=== PATIENT | female | born 1950 | race Caucasian/White ===

== ENCOUNTER 2016-07-21 10:48 | Emergency (ER) | payer MEDICARE ==
--- NOTE | 2016-07-21 11:29 | ERPHSYRPT ---
- History of Present Illness Time Seen by Provider: 07/21/16 11:29 Source: patient, family Exam Limitations: no limitations Patient Subjective Stated Complaint: was in the hospital last week for pneumonia. is still having a cough and chest congestion. also c/o weakness. also states she feel dizzy when up and is seeing spots in front of her eyes. Triage Nursing Assessment: ambulated to room per self without difficulty. skin w/d, color normal, resp nonlabored. dry cough noted. nonproductive. breath sounds clear. Physician History: The patient is a 66-year-old female with her with multiple complaints. She was hospitalized for 3 days for shortness of breath and a cough. She was discharged on July 14. She has been taking Augmentin since then. She still has a cough. She is short of breath. She feels "horrible". She feels dizzy for the past 2 days even when laying down. She has a headache. She has a fiery feeling in her chest intermittently but none right now. She said nausea vomiting diarrhea for 3 or 4 days. The vomiting has ceased but the diarrhea continues. She contracted this from a household member. She thinks she is dehydrated, although she is urinating 3 or 4 times a day and the urine is clear like water. She has a past medical history of congestive heart failure. Timing/Duration: day(s) (3) Cough Quality/Degree: dry cough Possible Cause: occasional episodes Associated Symptoms: cough, headache, shortness of breath Allergies/Adverse Reactions: No Known Drug Allergies Allergy (Verified 07/21/16 11:03) Home Medications: Rosuvastatin Calcium [Crestor] 10 mg PO HS 10/09/12 [History] Alprazolam 0.25 mg [xanAX 0.25 MG] 0.25 mg PO HS 02/14/13 [History] Lisinopril 10 mg [Zestril 10 MG] 20 mg PO DAILY 07/27/14 [History] Glyburide 2.5 mg PO DAILY 10/20/15 [History] Acetaminophen 325 mg [Tylenol 325 mg] 650 mg PO Q4HPRN PRN 07/11/16 [ History] Ibuprofen 200 mg [Motrin 200 mg] 600 mg PO Q6HPRN PRN 07/11/16 [History] Methylprednisolone [Medrol 4 mg Dose Pack] 4 mg PO DAILY 07/21/16 [History] Hx Tetanus, Diphtheria Vaccination/Date Given: No Hx Influenza Vaccination/Date Given: No Hx Pneumococcal Vaccination/Date Given: No Immunizations Up to Date: No - Review of Systems Constitutional: No Fever, No Chills Eyes: Vision Changes, Other (spots) Ears, Nose, & Throat: No Symptoms Respiratory: Cough, Dyspnea on Exertion (BIRCH) Cardiac: Chest Pain Abdominal/Gastrointestinal: Nausea, Vomiting, Diarrhea Genitourinary Symptoms: No Dysuria Musculoskeletal: No Back Pain, No Neck Pain Skin: No Rash Neurological: Dizziness, Headache Psychological: No Symptoms Endocrine: No Symptoms Hematologic/Lymphatic: No Symptoms Immunological/Allergic: No Symptoms All Other Systems: Reviewed and Negative - Past Medical History Pertinent Past Medical History: Yes Neurological History: No Pertinent History ENT History: No Pertinent History Cardiac History: High Cholesterol, Hypertension Respiratory History: Bronchitis, Pneumonia Endocrine Medical History: Diabetes Type II, Other Musculoskeletal History: No Pertinent History GI Medical History: Other History: No Pertinent History Psycho-Social History: Other Female Reproductive Disorders: Uterine Cancer Other Medical History: Lymphoma of liver and bone marrow, "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" - Past Surgical History Past Surgical History: Yes Neuro Surgical History: No Pertinent History Cardiac: No Pertinent History Respiratory: No Pertinent History Gastrointestinal: Appendectomy, Cholecystectomy Genitourinary: No Pertinent History Musculoskeletal: No Pertinent History Female Surgical History: Section, Hysterectomy - Social History Smoking Status: Never smoker Exposure to second hand smoke: Yes Drug Use: none Patient Lives Alone: No - Female History Hx Now: No - Nursing Vital Signs Nursing Vital Signs: Initial Vital Signs Temperature 97.7 F Temperature Source Oral Pulse Rate 103 Respiratory Rate 18 Blood Pressure 132/82 Pain Intensity 6 - Physical Exam General Appearance: no apparent distress, alert Eye Exam: PERRL/EOMI, eyes nml inspection Ears, Nose, Throat Exam: normal ENT inspection, TMs normal, pharynx normal, moist mucous membranes Neck Exam: normal inspection, non-tender, supple, full range of motion Respiratory Exam: normal breath sounds, lungs clear, No respiratory distress Cardiovascular Exam: regular rate/rhythm, normal heart sounds Gastrointestinal/Abdomen Exam: soft, other (obese), No tenderness Pelvic Exam: not done Rectal Exam: not done Back Exam: normal inspection, No CVA tenderness, No vertebral tenderness Extremity Exam: normal inspection, normal range of motion, No pedal edema Neurologic Exam: alert, oriented x 3, cooperative, normal mood/affect, sensation nml, No motor deficits Skin Exam: normal color, warm, dry, No rash Lymphatic Exam: No adenopathy SpO2 Interpretation: normal SpO2: 96 Oxygen Delivery: Room Air - Course EKG Interpreted by Me: Sinus Rhythm, Left [place] Deviation, NORMAL QRS, Other ( LAFB) Ordered Tests: Active Orders 24 hr Category Date Time Status EKG-ER Only STAT Care 07/21/16 11:35 Active IV Insertion STAT Care 07/21/16 11:35 Active CHEST 2 VIEWS (PA AND LAT) Stat Exams 07/21/16 11:36 Completed HEAD WITHOUT CONTRAST [CT] Stat Exams 07/21/16 11:37 Completed CBC W DIFF Stat Lab 07/21/16 12:05 Completed CMP Stat Lab 07/21/16 12:06 Completed Manual Differential NC Stat Lab 07/21/16 12:05 Completed NT PRO BNP Stat Lab 07/21/16 12:06 Completed TROPONIN Stat Lab 07/21/16 12:06 Completed UA W/ MICROSCOPIC Stat Lab 07/21/16 12:06 Completed Lab/Rad Data: Laboratory Result Diagrams 07/21/16 12:05 07/21/16 12:06 Laboratory Results 07/21/16 07/21/16 07/21/16 Range/Units 12:06 12:06 12:05 WBC 9.6 (4.0-10.5) K/mm3 RBC 5.44 H (4.1-5.4) M/mm3 Hgb 15.7 (12.0-16.0) gm/dl Hct 46.4 (35-47) % MCV 85.3 (78-100) fl MCH 28.8 (26-32) pg MCHC 33.8 (32-36) g/dl RDW 14.7 H (11.5-14.0) % Plt Count 194 (150-450) K/mm3 MPV 10.5 H (6-9.5) fl Segmented Neutrophils 68 H (36.0-66.0) % Band Neutrophils 2 (0.0-2.0) % Lymphocytes (Manual) 20 L (24-44) % Monocytes (Manual) 7 (0.0-12.0) % Eosinophils (Manual) 3 (0.00-3.0) % Differential Comment ABNORMAL Platelet Estimate NORMAL (NORMAL) Anisocytosis 1+ Sodium 137 (136-145) mEq/L Potassium 4.1 (3.5-5.1) mEq/L Chloride 102 (98-107) mEq/L Carbon Dioxide 25.1 (21-32) mEq/L Anion Gap 14.1 (5-15) MEQ/L BUN 26 H (9-20) mg/dL Creatinine 1.04 (0.55-1.30) mg/dl Estimated GFR 56 ML/MIN Glucose 171 H (70-110) MG/DL Calcium 9.2 (8.5-10.1) mg/dL Total Bilirubin 0.9 (0.2-1.0) mg/dL AST 11 L (15-37) U/L ALT 20 (12-78) U/L Alkaline Phosphatase 58 (46-116) U/L Troponin I < 0.017 (0.000-0.056) ng/ml NT-Pro-B Natriuret Pep 88 (0-125) pg/ml Serum Total Protein 7.1 (6.4-8.2) gm/dL Albumin 3.4 (3.4-5.0) g/dL Ur Collection Type CCMS Urine Color YELLOW (YELLOW) Urine Appearance CLEAR (CLEAR) Urine pH 5.0 (5-6) Ur Specific [place] 1.010 (1.005-1.025) Urine Protein NEGATIVE (Negative) Urine Glucose (UA) NEGATIVE (NEGATIVE) mg/dL Urine Ketones NEGATIVE (NEGATIVE) Urine Nitrite NEGATIVE (NEGATIVE) Urine Bilirubin NEGATIVE (NEGATIVE) Urine Urobilinogen 0.2 (0-1) mg/dL Urine WBC (Auto) TRACE (NEGATIVE) Urine RBC (Auto) NEGATIVE (0-5) Real/ul Urine Microscopic WBC 0-2 (0-5) /HPF Ur Epithelial Cells RARE (FEW) /HPF Urine Bacteria RARE (NEGATIVE) /HPF Specimen Received 07-21-16 1215 - Progress Progress: unchanged Air Movement: good Blood Culture(s) Obtained: No Antibiotics given: No Discussed with : Ada Nix Will see patient in: office Counseled pt/family regarding: lab results, diagnosis, need for follow-up, rad results - Departure Time of Disposition: 14:23 Departure Disposition: Home Clinical Impression: Bronchitis Condition: Stable Critical Care Time: No Additional Instructions: Continue with all meds as directed. Follow up with Dr Nix on Sunday at 11: 30.
[2016-07-21 12:09] LABS: Mean Cell Volume 85.3 fl (78-100); Mean Platelet Volume 10.5 fl (6-9.5); Platelet Count 194 K/mm3 (150-450); Red Blood Count 5.44 M/mm3 (4.1-5.4); Red Cell Distribution Width 14.7 % (11.5-14.0); White Blood Count 9.6 K/mm3 (4.0-10.5)
[2016-07-21 12:10] LABS: Mean Corpuscular Hemoglobin 28.8 pg (26-32)
[2016-07-21 12:24] LABS: COMPLETE URINE MICROSCOPIC? YES; Collection Type CCMS
[2016-07-21 12:25] LABS: Bacteria RARE /HPF (NEGATIVE); Epithelial Cells RARE /HPF (FEW); WBC 0-2 /HPF (0-5)
--- NOTE | 2016-07-21 12:26 | XRAY ---
Indication: Cough and short of breath. Comparison: July 13, 2016 PA/lateral chest remains hyperinflated and clear. Heart is not enlarged. No new/acute findings.
--- NOTE | 2016-07-21 12:36 | XRAY ---
Indication: Dizziness and visual disturbance. Multiple contiguous axial images obtained through the head without contrast. Comparison: April 20, 2015 Again no acute intracranial hemorrhage, abnormal extra-axial fluid collection, or mass effect. Fourth ventricle is midline without hydrocephalus. Zaidi-white matter differentiation preserved. Bony calvarium intact. Visualized paranasal sinuses and mastoid air cells are pneumatized and clear. Impression: Stable negative CT head without contrast exam. CT DI is 66.81
[2016-07-21 12:38] LABS: ALBUMIN 3.4 g/dL (3.4-5.0); ALKALINE PHOSPHATASE 58 U/L (46-116); ANION GAP 14.1 MEQ/L (5-15); BILIRUBIN,TOTAL 0.9 mg/dL (0.2-1.0); BLOOD UREA NITROGEN 26 mg/dL (9-20); CHLORIDE 102 mEq/L (98-107); Carbon Dioxide 25.1 mEq/L (21-32); Glucose 171 MG/DL (70-110); Potassium 4.1 mEq/L (3.5-5.1); SGOT/AST 11 U/L (15-37); SGPT/ALT 20 U/L (12-78); SODIUM 137 mEq/L (136-145); Total Protein 7.1 gm/dL (6.4-8.2)
[2016-07-21 12:45] LABS: TROPONIN < 0.017 ng/ml (0.000-0.056)
[2016-07-21 13:19] LABS: ANISOCYTOSIS 1+; BAND 2 % (0.0-2.0); Eosinophil 3 % (0.00-3.0); Platelet Estimate NORMAL (NORMAL); Total Cells Counted 100
[2016-07-21] MEDS ORDERED: TORAdol 30 mg Injection IV ONE (14:24)
[2016-07-21] MEDS ORDERED: TORAdol 30 mg Injection ONE (14:32)
[2016-07-21 14:39] VITALS: BP 137/87; PULSE 72; O2SAT 95
== END 2016-07-21 14:53 | disposition home or self-care (01) ==
LOC: ED 10:48
DX: J40 Bronchitis, not specified as acute or chronic (principal); R05 Cough; R51 Headache; R06.02 Shortness of breath; I10 Essential (primary) hypertension; E78.00 Pure hypercholesterolemia, unspecified
CPT/HCPCS: 36000; 36415; 70450; 71020; 80053; 81000; 83880; 84484; 85025; 93005; 99283; J1885

== ENCOUNTER 2016-12-17 16:45 | Emergency (ER) | payer MEDICARE ==
[2016-12-17] MEDS ORDERED: Sodium Chloride 0.9% 1000 ML 1,000 ML IV SCH (17:15)
[2016-12-17] MEDS ORDERED: Sodium Chloride 0.9% 1000 ML 1,000 ML ONE (17:34)
[2016-12-17 17:36] LABS: BASOPHIL % 0.2 % (0.0-0.4); Eosinophil % 1.3 % (0.00-5.0); Granulocytes % 69.2 % (36.0-66.0); Lymphocytes % 21.3 % (24.0-44.0); Mean Cell Volume 85.5 fl (78-100); Mean Corpuscular Hemoglobin 28.2 pg (26-32); Mean Platelet Volume 10.5 fl (6-9.5); Platelet Count 177 K/mm3 (150-450); Red Blood Count 4.29 M/mm3 (4.1-5.4); Red Cell Distribution Width 14.3 % (11.5-14.0); White Blood Count 5.2 K/mm3 (4.0-10.5)
[2016-12-17 18:01] LABS: ADD URINE CULTURE? NO (NO); Bacteria FEW /HPF (NEGATIVE); COMPLETE URINE MICROSCOPIC? YES; Collection Type CLEAN CATCH; Epithelial Cells MODERATE /HPF (FEW); Mucus SLIGHT /HPF (NEGATIVE)
[2016-12-17 18:14] VITALS: BP 124/63; PULSE 66; O2SAT 99
[2016-12-17 18:24] LABS: ALBUMIN 3.2 g/dL (3.4-5.0); ALKALINE PHOSPHATASE 64 U/L (46-116); ANION GAP 13.1 MEQ/L (5-15); BLOOD UREA NITROGEN 20 mg/dL (9-20); CHLORIDE 106 mEq/L (98-107); Carbon Dioxide 25.9 mEq/L (21-32); Glucose 157 MG/DL (70-110); Potassium 3.8 mEq/L (3.5-5.1); SGOT/AST 11 U/L (15-37); SGPT/ALT 15 U/L (12-78); SODIUM 141 mEq/L (136-145); Total Protein 6.8 gm/dL (6.4-8.2)
[2016-12-17] MEDS ORDERED: TORAdol 30 mg Injection IV ONE (18:37)
[2016-12-17] MEDS ORDERED: TORAdol 30 mg Injection ONE (18:43)
--- NOTE | 2016-12-17 19:02 | ERPHSYRPT ---
- History of Present Illness Time Seen by Provider: 12/17/16 18:15 Patient Subjective Stated Complaint: rt back pain Triage Nursing Assessment: c/o rt back pain since . no fever. normal oral intake. last bm yesterday. denies problems with urination. c/o pain with palpation to rt mid back. denies injury. skin warm and dry Physician History: PATIENT WITH A HISTORY OF DIABETES TYPE 2 AND HYPERTENSION COMPLAINS OF RIGHT UPPER BACK PAIN FOR 2 DAYS. HAS PAIN UPON INSPIRATION OR MOTION OF TORSO. Timing/Duration: yesterday Method of Injury: bending Quality: sharp Back Pain Location: lumbar spine Severity of Pain-Max: mild Severity of Pain-Current: mild Associated Symptoms: other (PAIN UPON INSPIRATION) Previous symptoms: no prior history Allergies/Adverse Reactions: No Known Drug Allergies Allergy (Verified 12/17/16 17:00) Home Medications: Rosuvastatin Calcium [Crestor] 10 mg PO HS 10/09/12 [History] Alprazolam 0.25 mg [xanAX 0.25 MG] 0.25 mg PO HS 02/14/13 [History] Lisinopril 10 mg [Zestril 10 MG] 20 mg PO DAILY 07/27/14 [History] Glyburide 2.5 mg PO DAILY 10/20/15 [History] Acetaminophen 325 mg [Tylenol 325 mg] 650 mg PO Q4HPRN PRN 07/11/16 [ History] Ibuprofen 200 mg [Motrin 200 mg] 600 mg PO Q6HPRN PRN 07/11/16 [History] Hx Tetanus, Diphtheria Vaccination/Date Given: Yes Hx Influenza Vaccination/Date Given: No Hx Pneumococcal Vaccination/Date Given: No Immunizations Up to Date: Yes - Review of Systems Constitutional: No Fever, No Chills Eyes: No Symptoms Ears, Nose, & Throat: No Symptoms Respiratory: No Symptoms, No Cough, No Dyspnea Cardiac: No Symptoms, No Chest Pain, No Edema, No Syncope Abdominal/Gastrointestinal: No Abdominal Pain, No Nausea, No Vomiting, No Diarrhea Genitourinary Symptoms: No Symptoms, No Dysuria Musculoskeletal: No Back Pain, No Neck Pain Skin: No Rash Neurological: No Dizziness, No Focal Weakness, No Sensory Changes Psychological: No Symptoms Endocrine: No Symptoms All Other Systems: Reviewed and Negative - Past Medical History Pertinent Past Medical History: Yes Neurological History: No Pertinent History ENT History: No Pertinent History Cardiac History: High Cholesterol, Hypertension Respiratory History: Bronchitis, Pneumonia Endocrine Medical History: Diabetes Type II, Other Musculoskeletal History: No Pertinent History GI Medical History: Other History: No Pertinent History Psycho-Social History: Other Female Reproductive Disorders: Uterine Cancer Other Medical History: Lymphoma of liver and bone marrow, "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" - Past Surgical History Past Surgical History: Yes Neuro Surgical History: No Pertinent History Cardiac: No Pertinent History Respiratory: No Pertinent History Gastrointestinal: Appendectomy, Cholecystectomy Genitourinary: No Pertinent History Musculoskeletal: No Pertinent History Female Surgical History: Section, Hysterectomy - Social History Smoking Status: Never smoker Exposure to second hand smoke: Yes Drug Use: none Patient Lives Alone: No - Female History Hx Now: No - Nursing Vital Signs Nursing Vital Signs: Initial Vital Signs Temperature 97.8 F Temperature Source Oral Pulse Rate 66 Respiratory Rate 18 Blood Pressure [] 124/63 Pain Intensity [] 7 Pain Intensity 7 - Physical Exam General Appearance: no apparent distress, alert Eye Exam: PERRL/EOMI, eyes nml inspection Neck Exam: normal inspection, non-tender, supple, full range of motion, No meningismus, No midline tenderness Respiratory Exam: normal breath sounds, chest tenderness (RIGHT POSTERIOR CHEST WALL TENDERNESS RIBS 5TH TO 8TH, NO CREPITUS), lungs clear, No respiratory distress Cardiovascular Exam: regular rate/rhythm, normal heart sounds Gastrointestinal Exam: soft, normal bowel sounds, No tenderness, No mass Extremity Exam: normal inspection, normal range of motion, No calf tenderness, No pedal edema Peripheral Pulses: carotid (R): 2+, carotid (L): 2+, femoral (R): 2+, femoral (L ): 2+, dorsalis-pedis (R): 2+, dorsalis-pedis (L): 2+ Neurologic Exam: alert, oriented x 3, cooperative, hand former helper II-XII nml as tested, normal mood/affect, nml station & gait, sensation nml, No motor deficits Skin Exam: normal color, warm, dry, No rash SpO2 Interpretation: normal SpO2: 99 Oxygen Delivery: Room Air - Course EKG Interpreted by Me: RATE, Sinus Rhythm, NORMAL AXIS - Radiology Exams Chest X-ray Interpretation: Interpreted by me, Negative Ordered Tests: Active Orders 24 hr Category Date Time Status Computer Graphic Artist STAT Care 12/17/16 17:13 Active EKG-ER Only STAT Care 12/17/16 18:22 Active IV Insertion STAT Care 12/17/16 17:13 Active Oxygen-ED Only NASAL CANNULA 2 lpm Care 12/17/16 17:13 Inactive CHEST 2 VIEWS (PA AND LAT) Stat Exams 12/17/16 17:13 Taken CBC W DIFF Stat Lab 12/17/16 17:31 Completed CMP Stat Lab 12/17/16 17:31 Completed D-DIMER QUANTITATION Stat Lab 12/17/16 17:31 Completed TROPONIN Q3H Lab 12/17/16 17:31 Completed TROPONIN Q3H Lab 12/17/16 20:15 Ordered TROPONIN Q3H Lab 12/17/16 23:15 Ordered TROPONIN Q3H Lab 12/18/16 02:15 Ordered TROPONIN Q3H Lab 12/18/16 05:15 Ordered UA W/ MICROSCOPIC Stat Lab 12/17/16 17:31 Completed Medication Summary Generic Name Dose Route Start Last Admin Trade Name Freq PRN Reason Stop Dose Admin Sodium Chloride 1,000 mls @ 50 mls/hr 12/17/16 17:15 12/17/16 17:38 Sodium Chloride 0.9% 1000 Ml IV 01/16/17 17:14 50 mls/hr .Q20H ALEXANDRE Administration Discontinued Medications Generic Name Dose Route Start Last Admin Trade Name Freq PRN Reason Stop Dose Admin Hydrocodone Bitart/Acetaminophen 2 tab 12/17/16 19:06 [place] 5/325 Mg PO 12/17/16 19:07 SENT HOME W/ PATIENT ONE Ketorolac Tromethamine 30 mg 12/17/16 18:37 12/17/16 18:43 Toradol 30 Mg Injection IV 12/17/16 18:38 30 mg STAT ONE Administration Ketorolac Tromethamine Confirm 12/17/16 18:43 Toradol 30 Mg Injection Administered 12/17/16 18:44 Dose 30 mg .ROUTE .STK-MED ONE Lab/Rad Data: Laboratory Result Diagrams 12/17/16 17:31 12/17/16 17:31 Laboratory Results 12/17/16 12/17/16 12/17/16 Range/Units 17:31 17:31 17:31 WBC (4.0-10.5) K/mm3 RBC (4.1-5.4) M/mm3 Hgb (12.0-16.0) gm/dl Hct (35-47) % MCV (78-100) fl MCH (26-32) pg MCHC (32-36) g/dl RDW (11.5-14.0) % Plt Count (150-450) K/mm3 MPV (6-9.5) fl Gran % (36.0-66.0) % Lymphocytes % (24.0-44.0) % Monocytes % (0.0-12.0) % Eosinophils % (0.00-5.0) % Basophils % (0.0-0.4) % Basophils # (0-0.4) D-Dimer 349.42 (0.00-500.00) ng/mL Sodium 141 (136-145) mEq/L Potassium 3.8 (3.5-5.1) mEq/L Chloride 106 (98-107) mEq/L Carbon Dioxide 25.9 (21-32) mEq/L Anion Gap 13.1 (5-15) MEQ/L BUN 20 (9-20) mg/dL Creatinine 0.92 (0.55-1.30) mg/dl Estimated GFR > 60 ML/MIN Glucose 157 H (70-110) MG/DL Calcium 9.0 (8.5-10.1) mg/dL Total Bilirubin 0.40 (0.2-1.0) mg/dL AST 11 L (15-37) U/L ALT 15 (12-78) U/L Alkaline Phosphatase 64 (46-116) U/L Troponin I < 0.017 (0.000-0.056) ng/ml Serum Total Protein 6.8 (6.4-8.2) gm/dL Albumin 3.2 L (3.4-5.0) g/dL Ur Collection Type Urine Color (YELLOW) Urine Appearance (CLEAR) Urine pH (5-6) Ur Specific [place] (1.005-1.025) Urine Protein (Negative) Urine Glucose (UA) (NEGATIVE) mg/dL Urine Ketones (NEGATIVE) Urine Nitrite (NEGATIVE) Urine Bilirubin (NEGATIVE) Urine Urobilinogen (0-1) mg/dL Urine WBC (Auto) (NEGATIVE) Urine RBC (Auto) (0-5) Real/ul Urine Microscopic RBC (0-2) /HPF Urine Microscopic WBC (0-5) /HPF Ur Epithelial Cells (FEW) /HPF Urine Bacteria (NEGATIVE) /HPF Urine Mucus (NEGATIVE) /HPF Specimen Received 12/17/16 12/17/16 Range/Units 17:31 17:31 WBC 5.2 (4.0-10.5) K/mm3 RBC 4.29 (4.1-5.4) M/mm3 Hgb 12.1 (12.0-16.0) gm/dl Hct 36.7 (35-47) % MCV 85.5 (78-100) fl MCH 28.2 (26-32) pg MCHC 33.0 (32-36) g/dl RDW 14.3 H (11.5-14.0) % Plt Count 177 (150-450) K/mm3 MPV 10.5 H (6-9.5) fl Gran % 69.2 H (36.0-66.0) % Lymphocytes % 21.3 L (24.0-44.0) % Monocytes % 8.0 (0.0-12.0) % Eosinophils % 1.3 (0.00-5.0) % Basophils % 0.2 (0.0-0.4) % Basophils # 0.01 (0-0.4) D-Dimer (0.00-500.00) ng/mL Sodium (136-145) mEq/L Potassium (3.5-5.1) mEq/L Chloride (98-107) mEq/L Carbon Dioxide (21-32) mEq/L Anion Gap (5-15) MEQ/L BUN (9-20) mg/dL Creatinine (0.55-1.30) mg/dl Estimated GFR ML/MIN Glucose (70-110) MG/DL Calcium (8.5-10.1) mg/dL Total Bilirubin (0.2-1.0) mg/dL AST (15-37) U/L ALT (12-78) U/L Alkaline Phosphatase (46-116) U/L Troponin I (0.000-0.056) ng/ml Serum Total Protein (6.4-8.2) gm/dL Albumin (3.4-5.0) g/dL Ur Collection Type CLEAN CATCH Urine Color YELLOW (YELLOW) Urine Appearance CLEAR (CLEAR) Urine pH 5.0 (5-6) Ur Specific [place] 1.020 (1.005-1.025) Urine Protein NEGATIVE (Negative) Urine Glucose (UA) NEGATIVE (NEGATIVE) mg/dL Urine Ketones NEGATIVE (NEGATIVE) Urine Nitrite NEGATIVE (NEGATIVE) Urine Bilirubin NEGATIVE (NEGATIVE) Urine Urobilinogen 0.2 (0-1) mg/dL Urine WBC (Auto) TRACE (NEGATIVE) Urine RBC (Auto) NEGATIVE (0-5) Real/ul Urine Microscopic RBC 0-2 (0-2) /HPF Urine Microscopic WBC 2-5 (0-5) /HPF Ur Epithelial Cells MODERATE (FEW) /HPF Urine Bacteria FEW (NEGATIVE) /HPF Urine Mucus SLIGHT (NEGATIVE) /HPF Specimen Received 12/17/16 1720 - Progress Progress: pain not gone completely Progress Note: 12/17/16 19:04 PATIENT GIVEN TORADOL 30MG IV Counseled pt/family regarding: lab results, diagnosis, need for follow-up, rad results - Departure Time of Disposition: 19:06 Departure Disposition: Home Clinical Impression: ACUTE CHEST WALL PAIN Condition: Stable Critical Care Time: No Referrals: KAYLA MEJIA [Primary Care Provider] - Additional Instructions: TORADOL 10MG EVERY 6 HOURS FOR PAIN NEEDED. CONSULT YOUR FAMILY PHYSICIAN IN 1 WEEK FOR EVALUATION. Prescriptions: Ketorolac Tromethamine [Toradol] 10 mg PO Q6HPRN PRN #20 tablet PRN Reason: Pain
[2016-12-17] MEDS ORDERED: NORCO 5/325 MG PO ONE (19:06)
[2016-12-17] MEDS ORDERED: NORCO 5/325 MG ONE (19:10)
--- NOTE | 2016-12-17 19:12 | XRAY ---
Indication: Right chest pain. Comparison: July 21, 2016. PA/lateral chest again hyperinflated and clear. Heart and mediastinal structures are stable and within normal limits. Bony thorax intact again with mild osteopenia and degenerative changes. Impression: Stable nonacute chest again with chronic features.
== END 2016-12-17 19:13 | disposition home or self-care (01) ==
LOC: ED 16:45
DX: R07.89 Other chest pain (principal); E78.00 Pure hypercholesterolemia, unspecified; I10 Essential (primary) hypertension
CPT/HCPCS: 36000; 36415; 71020; 80053; 81000; 84484; 85025; 85379; 93005; 93041; 96360; 96361; 96374; 99284; J1885; A9270-GY

== ENCOUNTER 2017-08-13 17:30 | Observation (INO) | payer MEDICARE ==
[2017-08-13] MEDS ORDERED: Sodium Chloride 0.9% 1000 ML 1,000 ML IV STA (18:06)
[2017-08-13] MEDS ORDERED: TYLENOL EXTRA STRENGTH 500 MG PO PRN (18:06)
[2017-08-13] MEDS ORDERED: Sodium Chloride 0.9% 1000 ML 0 ML ONE (18:08)
[2017-08-13] MEDS ORDERED: TYLENOL EXTRA STRENGTH 500 MG ONE (18:08)
[2017-08-13] MEDS ORDERED: TYLENOL 325 MG ONE (18:09)
[2017-08-13] MEDS ORDERED: TYLENOL 325 MG PO STA (18:09)
[2017-08-13 18:24] LABS: Appearance CLEAR (CLEAR); Leukocyte Esterase NEGATIVE (NEGATIVE); Specific Gravity 1.005 (1.005-1.025)
[2017-08-13 18:24] LABS: Basophil (Absolute #) 0 (0-0.4); Eosinophil % 0.6 % (0.00-5.0); Eosinophil (Absolute #) 0.02 (0-0.5); Granulocyte Absolute (ANC) 2.35 (1.4-6.9); Granulocytes % 70.6 % (36.0-66.0); Hematocrit 36.2 % (35-47); Hemoglobin 11.8 gm/dl (12.0-16.0); Lymphocyte (Absolute #) 0.44 (1.0-4.6); Lymphocytes % 13.2 % (24.0-44.0); Mean Cell Volume 87.2 fl (78-100); Mean Corpuscular Hemoglobin 28.4 pg (26-32); Mean Corpuscular Hgb Concent. 32.6 g/dl (32-36); Mean Platelet Volume 10.4 fl (6-9.5); Monocyte (Absolute #) 0.52 (0.0-1.3); Monocytes % 15.6 % (0.0-12.0); Platelet Count 129 K/mm3 (150-450); Red Blood Count 4.15 M/mm3 (4.1-5.4); Red Cell Distribution Width 13.8 % (11.5-14.0); White Blood Count 3.3 K/mm3 (4.0-10.5)
[2017-08-13] MEDS ORDERED: PROVENTIL 2.5 MG/3 ML NEB IH ONE ×2 (18:24→18:59)
[2017-08-13 18:25] LABS: Bilirubin NEGATIVE (NEGATIVE); Blood NEGATIVE Ery/ul (0-5); Glucose NEGATIVE (NEGATIVE); Ketones NEGATIVE (NEGATIVE); Nitrite NEGATIVE (NEGATIVE); Protein,Urine Dip NEGATIVE (Negative); Urobilinogen NORMAL mg/dL (0-1)
--- NOTE | 2017-08-13 18:31 | ERPHSYRPT ---
- History of Present Illness Time Seen by Provider: 08/13/17 17:53 Source: patient, family (daughter) Patient Subjective Stated Complaint: pt here for cough, congestion, weakness, for 3 days ,dizzy yesterday. took flu vaccine and whooping cough vaccine on sun. Triage Nursing Assessment: alert, resp easy, coughing up green sputum, skin w/d/ p. no edema, Physician History: CC: cough Hx: 67 y/o patient of Dr Marcela Nix with hx of DM. She works [employer]. Had Tdap and Flu vaccine last week. 4 days ago she had malaise, cough, fever, muscle aches. Headache and sore throat. She has worsened cough. Today she felt dizzy and was unable to get to the doctor. Daughter brought her here. No hx of lung disease. Allergies/Adverse Reactions: No Known Drug Allergies Allergy (Verified 12/17/16 17:00) Home Medications: Rosuvastatin Calcium [Crestor] 10 mg PO HS 10/09/12 [History] Alprazolam 0.25 mg [xanAX 0.25 MG] 0.25 mg PO HS 02/14/13 [History] Lisinopril 10 mg [Zestril 10 MG] 20 mg PO DAILY 07/27/14 [History] Glyburide 2.5 mg PO DAILY 10/20/15 [History] Hx Tetanus, Diphtheria Vaccination/Date Given: Yes Hx Influenza Vaccination/Date Given: Yes Hx Pneumococcal Vaccination/Date Given: No Immunizations Up to Date: Yes - Review of Systems Constitutional: Fever, Chills, Fatigue, Malaise, Weakness Eyes: No Symptoms Ears, Nose, & Throat: Nose Congestion, Throat Pain Respiratory: Cough, Wheezing Cardiac: No Chest Pain Abdominal/Gastrointestinal: No Abdominal Pain, No Nausea, No Vomiting, No Diarrhea Genitourinary Symptoms: No Dysuria Musculoskeletal: Myalgias Skin: No Rash Neurological: Headache All Other Systems: Reviewed and Negative - Past Medical History Pertinent Past Medical History: Yes Neurological History: No Pertinent History ENT History: No Pertinent History Cardiac History: High Cholesterol, Hypertension Respiratory History: Bronchitis, Pneumonia Endocrine Medical History: Diabetes Type II, Other Musculoskeletal History: No Pertinent History GI Medical History: Other History: No Pertinent History Psycho-Social History: Other Female Reproductive Disorders: Uterine Cancer Other Medical History: Lymphoma of liver and bone marrow, "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" - Past Surgical History Past Surgical History: Yes Neuro Surgical History: No Pertinent History Cardiac: No Pertinent History Respiratory: No Pertinent History Gastrointestinal: Appendectomy, Cholecystectomy Genitourinary: No Pertinent History Musculoskeletal: No Pertinent History Female Surgical History: Section, Hysterectomy - Social History Smoking Status: Never smoker Exposure to second hand smoke: Yes Drug Use: none Patient Lives Alone: No - Female History Hx Last Menstrual Period: post Hx Now: No - Nursing Vital Signs Nursing Vital Signs: Initial Vital Signs Temperature 102.6 F 08/13/17 17:50 Pulse Rate 102 H 08/13/17 17:50 Respiratory Rate 20 08/13/17 17:50 Blood Pressure 144/77 08/13/17 17:50 O2 Sat by Pulse Oximetry 94 L 08/13/17 17:50 Pain Scale Pain Intensity 0 - Physical Exam General Appearance: alert, other (febrile) Eye Exam: PERRL/EOMI Ears, Nose, Throat Exam: dry mucous membranes Neck Exam: normal inspection, non-tender, supple Respiratory Exam: diminished breath sounds, crackles/rales (left lower), wheezing Cardiovascular Exam: regular rate/rhythm Gastrointestinal/Abdomen Exam: soft, No tenderness, No distention Back Exam: normal inspection Extremity Exam: normal inspection, normal range of motion, No calf tenderness, No pedal edema Neurologic Exam: alert, oriented x 3, cooperative, sensation nml, No motor deficits Skin Exam: warm, dry, No rash SpO2 Interpretation: normal SpO2: 95 Oxygen Delivery: Room Air - Course Nursing assessment & vital signs reviewed: Yes EKG Interpreted by Me: RATE (84), Sinus Rhythm, NORMAL AXIS, NORMAL INTERVALS ( QTc 419), Non-specific ST Changes - Radiology Exams cxr X-ray Interpretation: Reviewed by me, Negative (mild A/I rll) Ordered Tests: Active Orders 24 hr Category Date Time Status Dietary Aide Cook STAT Care 08/13/17 18:14 Active Clean Catch Urine Specimen STAT Care 08/13/17 18:14 Active EKG-ER Only STAT Care 08/13/17 18:14 Active IV Insertion STAT Care 08/13/17 18:14 Active Pulse Oximetry (ED) STAT Care 08/13/17 18:14 Active CHEST 2 VIEWS (PA AND LAT) Stat Exams 08/13/17 18:15 Taken BLOOD CULTURE Stat Lab 08/13/17 18:31 Received CBC W DIFF Stat Lab 08/13/17 18:20 Completed CMP Stat Lab 08/13/17 18:20 Completed CULTURE,URINE Stat Lab 08/13/17 18:22 Received Lactic Acid Stat Lab 08/13/17 18:36 Completed PROTIME WITH INR Stat Lab 08/13/17 18:20 Completed PTT Stat Lab 08/13/17 18:20 Completed UA Stat Lab 08/13/17 18:22 Completed VENOUS BLOOD GAS Stat Lab 08/13/17 18:40 Completed Respiratory Nebulizer STAT RT 08/13/17 18:24 Active Medication Summary Generic Name Dose Route Start Last Admin Trade Name Freq PRN Reason Stop Dose Admin Acetaminophen 1,000 mg 08/13/17 18:06 Tylenol Extra Strength 500 Mg PO 09/12/17 18:05 Q4H PRN PRN HEADACHE Discontinued Medications Generic Name Dose Route Start Last Admin Trade Name Freq PRN Reason Stop Dose Admin Acetaminophen 975 mg 08/13/17 18:09 08/13/17 18:10 Tylenol 325 Mg PO 08/13/17 18:10 975 mg STAT STA Administration Acetaminophen Confirm 08/13/17 18:09 Tylenol 325 Mg Administered 08/13/17 18:10 Dose 975 mg .ROUTE .STK-MED ONE Albuterol Sulfate 2.5 mg 08/13/17 18:24 08/13/17 19:00 Proventil 2.5 Mg/3 Ml Neb IH 08/13/17 18:25 2.5 mg STAT ONE Administration Albuterol Sulfate Confirm 08/13/17 18:59 Proventil 2.5 Mg/3 Ml Neb Administered 08/13/17 19:00 Dose 2.5 mg IH .STK-MED ONE Albuterol/Ipratropium Confirm 08/13/17 18:56 Duoneb 0.5-3 Mg/3 Ml Neb Administered 08/13/17 18:57 Dose 3 ml IH .STK-MED ONE Sodium Chloride 1,000 mls @ 999 mls/hr 08/13/17 18:06 08/13/17 18:10 Sodium Chloride 0.9% 1000 Ml IV 08/13/17 19:06 999 mls/hr .Q1H1M STA Administration Sodium Chloride Confirm 08/13/17 18:08 Sodium Chloride 0.9% 1000 Ml Administered 08/13/17 18:09 Dose 1,000 mls @ ud .ROUTE .STK-MED ONE Sodium Chloride Confirm 08/13/17 19:24 Sodium Chloride 0.9% 1000 Ml Administered 08/13/17 19:25 Dose 1,000 mls @ ud .ROUTE .STK-MED ONE Lab/Rad Data: Laboratory Result Diagrams 08/13/17 18:20 08/13/17 18:20 Laboratory Results 08/13/17 08/13/17 08/13/17 Range/Units 18:40 18:36 18:22 WBC (4.0-10.5) K/mm3 RBC (4.1-5.4) M/mm3 Hgb (12.0-16.0) gm/dl Hct (35-47) % MCV (78-100) fl MCH (26-32) pg MCHC (32-36) g/dl RDW (11.5-14.0) % Plt Count (150-450) K/mm3 MPV (6-9.5) fl Gran % (36.0-66.0) % Lymphocytes % (24.0-44.0) % Monocytes % (0.0-12.0) % Eosinophils % (0.00-5.0) % Basophils % (0.0-0.4) % Basophils # (0-0.4) INR (0.8-3.0) APTT (25.3-37.0) SECONDS VBG pH 7.41 (7.32-7.42) VBG pCO2 at Pat Temp 47 (42-55) mm/Hg VBG pO2 at Pat Temp 25 (25-40) mm/Hg VBG HCO3 29.8 H* (22-28) meq/L VBG O2 Sat (Gregg) 56.7 L (95-100) VBG Base Excess 4.4 H (-2.0-2.0) VBG Hemoglobin 12.2 VBG Carboxyhemoglobin 2.5 (0.0-6.9) % T HGB POC Potassium 4.0 (3.5-5.1) Sodium (136-145) mEq/L Potassium (3.5-5.1) mEq/L Chloride (98-107) mEq/L Carbon Dioxide (21-32) mEq/L Anion Gap (5-15) MEQ/L BUN (9-20) mg/dL Creatinine (0.55-1.30) mg/dl Estimated GFR ML/MIN Glucose (70-110) MG/DL Lactic Acid 0.9 (0.4-2.0) Calcium (8.5-10.1) mg/dL Total Bilirubin (0.2-1.0) mg/dL AST (15-37) U/L ALT (12-78) U/L Alkaline Phosphatase (46-116) U/L Serum Total Protein (6.4-8.2) gm/dL Albumin (3.4-5.0) g/dL Ur Collection Type CLEAN CATCH Urine Color YELLOW (YELLOW) Urine Appearance CLEAR (CLEAR) Urine pH 6.0 (5-6) Ur Specific [place] 1.005 (1.005-1.025) Urine Protein NEGATIVE (Negative) Urine Ketones NEGATIVE (NEGATIVE) Urine Blood NEGATIVE (0-5) Real/ul Urine Nitrite NEGATIVE (NEGATIVE) Urine Bilirubin NEGATIVE (NEGATIVE) Urine Urobilinogen NORMAL (0-1) mg/dL Ur Leukocyte Esterase NEGATIVE (NEGATIVE) Urine Glucose NEGATIVE (NEGATIVE) mg/dL Influenza Type A Ag (NEGATIVE) Influenza Type B Ag (NEGATIVE) RSV (PCR) (Negative) Specimen Received 08-13-17 08/13/17 08/13/17 08/13/17 Range/Units 18:20 18:20 18:20 WBC 3.3 L (4.0-10.5) K/mm3 RBC 4.15 (4.1-5.4) M/mm3 Hgb 11.8 L (12.0-16.0) gm/dl Hct 36.2 (35-47) % MCV 87.2 (78-100) fl MCH 28.4 (26-32) pg MCHC 32.6 (32-36) g/dl RDW 13.8 (11.5-14.0) % Plt Count 129 L (150-450) K/mm3 MPV 10.4 H (6-9.5) fl Gran % 70.6 H (36.0-66.0) % Lymphocytes % 13.2 L (24.0-44.0) % Monocytes % 15.6 H (0.0-12.0) % Eosinophils % 0.6 (0.00-5.0) % Basophils % 0.0 (0.0-0.4) % Basophils # 0 (0-0.4) INR 1.13 (0.8-3.0) APTT 32.5 (25.3-37.0) SECONDS VBG pH (7.32-7.42) VBG pCO2 at Pat Temp (42-55) mm/Hg VBG pO2 at Pat Temp (25-40) mm/Hg VBG HCO3 (22-28) meq/L VBG O2 Sat (Gregg) (95-100) VBG Base Excess (-2.0-2.0) VBG Hemoglobin VBG Carboxyhemoglobin (0.0-6.9) % T HGB POC Potassium (3.5-5.1) Sodium 138 (136-145) mEq/L Potassium 4.0 (3.5-5.1) mEq/L Chloride 102 (98-107) mEq/L Carbon Dioxide 30.3 (21-32) mEq/L Anion Gap 9.7 (5-15) MEQ/L BUN 11 (9-20) mg/dL Creatinine 1.09 (0.55-1.30) mg/dl Estimated GFR 53 ML/MIN Glucose 111 H (70-110) MG/DL Lactic Acid (0.4-2.0) Calcium 9.3 (8.5-10.1) mg/dL Total Bilirubin 0.50 (0.2-1.0) mg/dL AST 27 (15-37) U/L ALT 21 (12-78) U/L Alkaline Phosphatase 60 (46-116) U/L Serum Total Protein 7.7 (6.4-8.2) gm/dL Albumin 3.6 (3.4-5.0) g/dL Ur Collection Type Urine Color (YELLOW) Urine Appearance (CLEAR) Urine pH (5-6) Ur Specific [place] (1.005-1.025) Urine Protein (Negative) Urine Ketones (NEGATIVE) Urine Blood (0-5) Real/ul Urine Nitrite (NEGATIVE) Urine Bilirubin (NEGATIVE) Urine Urobilinogen (0-1) mg/dL Ur Leukocyte Esterase (NEGATIVE) Urine Glucose (NEGATIVE) mg/dL Influenza Type A Ag (NEGATIVE) Influenza Type B Ag (NEGATIVE) RSV (PCR) (Negative) Specimen Received 08/13/17 Range/Units 18:15 WBC (4.0-10.5) K/mm3 RBC (4.1-5.4) M/mm3 Hgb (12.0-16.0) gm/dl Hct (35-47) % MCV (78-100) fl MCH (26-32) pg MCHC (32-36) g/dl RDW (11.5-14.0) % Plt Count (150-450) K/mm3 MPV (6-9.5) fl Gran % (36.0-66.0) % Lymphocytes % (24.0-44.0) % Monocytes % (0.0-12.0) % Eosinophils % (0.00-5.0) % Basophils % (0.0-0.4) % Basophils # (0-0.4) INR (0.8-3.0) APTT (25.3-37.0) SECONDS VBG pH (7.32-7.42) VBG pCO2 at Pat Temp (42-55) mm/Hg VBG pO2 at Pat Temp (25-40) mm/Hg VBG HCO3 (22-28) meq/L VBG O2 Sat (Gregg) (95-100) VBG Base Excess (-2.0-2.0) VBG Hemoglobin VBG Carboxyhemoglobin (0.0-6.9) % T HGB POC Potassium (3.5-5.1) Sodium (136-145) mEq/L Potassium (3.5-5.1) mEq/L Chloride (98-107) mEq/L Carbon Dioxide (21-32) mEq/L Anion Gap (5-15) MEQ/L BUN (9-20) mg/dL Creatinine (0.55-1.30) mg/dl Estimated GFR ML/MIN Glucose (70-110) MG/DL Lactic Acid (0.4-2.0) Calcium (8.5-10.1) mg/dL Total Bilirubin (0.2-1.0) mg/dL AST (15-37) U/L ALT (12-78) U/L Alkaline Phosphatase (46-116) U/L Serum Total Protein (6.4-8.2) gm/dL Albumin (3.4-5.0) g/dL Ur Collection Type Urine Color (YELLOW) Urine Appearance (CLEAR) Urine pH (5-6) Ur Specific [place] (1.005-1.025) Urine Protein (Negative) Urine Ketones (NEGATIVE) Urine Blood (0-5) Real/ul Urine Nitrite (NEGATIVE) Urine Bilirubin (NEGATIVE) Urine Urobilinogen (0-1) mg/dL Ur Leukocyte Esterase (NEGATIVE) Urine Glucose (NEGATIVE) mg/dL Influenza Type A Ag POSITIVE (NEGATIVE) Influenza Type B Ag NEGATIVE (NEGATIVE) RSV (PCR) NEGATIVE (Negative) Specimen Received - Progress Progress Note: 08/13/17 19:34 IVF bolus, APAP, alb neb given. She is still too weak generally with dizziness to navigate. Called Dr bowling and will place in obs for IVF. She has had symptoms for greater than 3 days so tamiflu not given. Discussed with : Kristen Will see patient in: hospital (observation) Counseled pt/family regarding: lab results, diagnosis, need for follow-up, rad results - Departure Time of Disposition: 19:35 Departure Disposition: Observation Clinical Impression: Influenza A, Dizziness, Type 2 diabetes mellitus Condition: Fair Critical Care Time: No
[2017-08-13 18:38] LABS: INR 1.13 (0.8-3.0)
[2017-08-13 18:40] LABS: PTT 32.5 SECONDS (25.3-37.0)
[2017-08-13 18:44] LABS: VBG BASE EXCESS 4.4 (-2.0-2.0); VBG CARBOXYHEMOGLOBIN 2.5 % T HGB (0.0-6.9); VBG HCO3- 29.8 meq/L (22-28); VBG HEMOGLOBIN 12.2; VBG O2 SATURATION 56.7 (95-100); VBG pH 7.41 (7.32-7.42)
[2017-08-13 18:45] LABS: ALBUMIN 3.6 g/dL (3.4-5.0); ANION GAP 9.7 MEQ/L (5-15); BILIRUBIN,TOTAL 0.5 mg/dL (0.2-1.0); Calcium 9.3 mg/dL (8.5-10.1); Carbon Dioxide 30.3 mEq/L (21-32); Creatinine 1 1.09 mg/dl (0.55-1.30); Total Protein 7.7 gm/dL (6.4-8.2)
[2017-08-13] MEDS ORDERED: DUONEB 0.5-3 MG/3 ml Neb IH ONE (18:56)
[2017-08-13 19:24] LABS: INFLUENZA A POSITIVE (NEGATIVE); INFLUENZA B NEGATIVE (NEGATIVE); RESPIRATORY SYNCTIAL VIRUS NEGATIVE (Negative)
[2017-08-13] MEDS ORDERED: Sodium Chloride 0.9% 1000 ML 1,000 ML ONE (19:24)
[2017-08-13] MEDS ORDERED: NovoLOG Insulin SQ PRN (20:44)
[2017-08-13] MEDS: Lactated Ringers 1,000 ML IV SCH (21:00)
[2017-08-13] MEDS ORDERED: xanAX 0.25 MG ONE (22:49)
[2017-08-13] MEDS ORDERED: Zocor 10MG ONE (22:49)
[2017-08-13] MEDS: TYLENOL 325 MG PO PRN (22:53)
[2017-08-13] MEDS: xanAX 0.25 MG PO SCH (22:53)
[2017-08-14] MEDS: TYLENOL 325 MG PO PRN ×2 (05:13→13:48)
[2017-08-14] MEDS: Lactated Ringers 1,000 ML IV SCH ×3 (05:13→21:53)
[2017-08-14] MEDS: DUONEB 0.5-3 MG/3 ml Neb IH SCH ×5 (07:00→23:38)
--- NOTE | 2017-08-14 08:46 | XRAY ---
Indication: Cough. Comparison: December 17, 2016. PA/lateral chest remains hyperinflated and clear. Heart is not enlarged. Vascularity normal. Bony thorax intact again with mild osteopenia and degenerative changes. Impression: Stable nonacute hyperinflated chest.
[2017-08-14] MEDS: Zestril 20 MG PO SCH (09:45)
[2017-08-14] MEDS: Micronase 5 MG PO SCH (09:45)
--- NOTE | 2017-08-14 11:31 | PCM.HP ---
History of Present Illness - Chief Complaint Chief Complaint: INFLUENZA A, DIZZINESS, TYPE 2 DIABETES History of Present Illness: 67 y/o patient of Dr Marcela Nix with hx of DM. She works [employer]. Had Tdap and Flu vaccine last week. 4 days ago she had malaise, cough, fever, muscle aches. Headache and sore throat. She has worsened cough. Today she felt dizzy and was unable to get to the doctor. Daughter brought her here. No hx of lung disease. - Review of Systems Constitutional: No Fever, No Chills Eyes: No Symptoms Ears, Nose, & Throat: No Symptoms Respiratory: No Cough, No Short Of Breath Cardiac: No Chest Pain, No Edema, No Syncope Abdominal/Gastrointestinal: No Abdominal Pain, No Nausea, No Vomiting, No Diarrhea Genitourinary Symptoms: No Dysuria Musculoskeletal: No Back Pain, No Neck Pain Skin: No Rash Neurological: No Dizziness, No Focal Weakness, No Sensory Changes Psychological: No Symptoms Endocrine: No Symptoms Hematologic/Lymphatic: No Symptoms Immunological/Allergic: No Symptoms Medications & Allergies Home Medications: Home Medication List Rosuvastatin Calcium [Crestor] 10 mg PO HS 10/09/12 [History Confirmed 08/13/17] Alprazolam 0.25 mg [xanAX 0.25 MG] 0.25 mg PO HS 02/14/13 [History Confirmed 08/13/17] Lisinopril 10 mg [Zestril 10 MG] 20 mg PO DAILY 07/27/14 [History Confirmed 08/13/17] Glyburide 2.5 mg PO DAILY 10/20/15 [History Confirmed 08/13/17] Allergies/Adverse Reactions: Allergies Allergy/AdvReac Type Severity Reaction Status Date / Time No Known Drug Allergies Allergy Verified 12/17/16 17:00 - Past Medical History Past Medical History: Yes Neurological History: No Pertinent History ENT History: No Pertinent History Cardiac History: High Cholesterol, Hypertension Respiratory History: Bronchitis, Pneumonia Endocrine Medical History: Diabetes Type II, Other Musculoskelatal History: No Pertinent History GI Medical History: Other History: No Pertinent History Pyscho-Social History: Other Reproductive Disorders: Uterine Cancer Comment: Lymphoma of liver and bone marrow, "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" - Female History Hx Last Menstrual Period: post Are you now?: No - Past Surgical History Past Surgical History: Yes Neuro Surgical History: No Pertinent History Cardiac History: No Pertinent History Respiratory Surgery: No Pertinent History GI Surgical History: Appendectomy, Cholecystectomy Genitourinary Surgical Hx: No Pertinent History Musculskeletal Surgical Hx: No Pertinent History Female Surgical History: Section, Hysterectomy - Social History Smoking Status: Never smoker Exposure to second hand smoke: Yes Alcohol: Rarely Drug Use: none - Physical Exam Vital Signs: Vital Signs - 24 hr Temp Pulse Resp BP Pulse Ox 08/14/17 11:16 65 14 97 08/14/17 08:32 84 24 96 08/14/17 07:26 98.8 F 68 18 107/54 95 08/14/17 03:58 98.7 F 60 16 125/60 95 08/14/17 00:00 99.4 F 74 18 116/56 94 L 08/13/17 21:37 99.6 F 75 18 109/62 92 L 08/13/17 19:41 99.8 F 08/13/17 19:36 95 08/13/17 19:30 83 16 114/63 93 L 08/13/17 19:04 75 22 92 L 08/13/17 18:27 97 08/13/17 17:50 102.6 F 102 H 20 144/77 95 General Appearance: no apparent distress, alert Neurologic Exam: alert, oriented x 3, cooperative, normal mood/affect, nml cerebellar function, nml station & gait, sensation nml, No motor deficits Eye Exam: PERRL/EOMI, eyes nml inspection Ears, Nose, Throat Exam: normal ENT inspection, TMs normal, pharynx normal, moist mucous membranes Neck Exam: normal inspection, non-tender, supple, full range of motion Respiratory Exam: normal breath sounds, lungs clear, No respiratory distress Cardiovascular Exam: regular rate/rhythm, normal heart sounds, normal peripheral pulses Gastrointestinal/Abdomen Exam: soft, normal bowel sounds, No tenderness, No mass Back Exam: normal inspection, normal range of motion, No CVA tenderness, No vertebral tenderness Extremity Exam: normal inspection, normal range of motion, pelvis stable Skin Exam: normal color, warm, dry, No rash Lymphatic Exam: No adenopathy Results - Labs Lab/Micro Results: Accuchecks Date 08/13/17 Time 22:00 Accucheck Value: 121 Accuchecks Date 08/13/17 Time 22:00 Accucheck Value: 121 - Other Procedures and Tests Respiratory Therapy 08/13/17 23:41 Respiratory Nebulizer PRN Assessment/Plan (1) Influenza A Current Visit: Yes Status: Acute Code(s): J10.1 - FLU DUE TO OTH IDENT INFLUENZA VIRUS W OTH RESP MANIFEST (2) Type 2 diabetes mellitus Current Visit: Yes Status: Chronic Qualifiers: Diabetes mellitus complication status: with other specified complication Diabetes mellitus trust manager assistant insulin use: without mcfp use Qualified Code( s): E11.69 - Type 2 diabetes mellitus with other specified complication
[2017-08-14] MEDS: Robitussin AC Syrup Unit Dose Cup PO PRN (15:44)
[2017-08-14] MEDS: Tylenol #3 Tablet PO PRN ×2 (15:53→23:34)
[2017-08-14] MEDS ORDERED: ZOCOR 20MG PO SCH (22:00)
[2017-08-14] MEDS ORDERED: Zocor 10MG PO SCH (22:00)
[2017-08-14] MEDS: xanAX 0.25 MG PO SCH (22:01)
[2017-08-15] MEDS: Lactated Ringers 1,000 ML IV SCH (05:21)
[2017-08-15] MEDS: Robitussin AC Syrup Unit Dose Cup PO PRN (05:30)
[2017-08-15] MEDS: TYLENOL 325 MG PO PRN (05:31)
[2017-08-15] MEDS: DUONEB 0.5-3 MG/3 ml Neb IH SCH (06:58)
[2017-08-15] MEDS: Micronase 5 MG PO SCH (07:53)
[2017-08-15 07:56] VITALS: BP 128/64; PULSE 74; O2SAT 94
--- NOTE | 2017-08-15 08:31 | PCM.NOTE ---
Date and Time: 08/15/17830 Subjective Assessment: doing better - Review of Systems Constitutional: No Fever, No Chills Eyes: No Symptoms Ears, Nose, & Throat: No Symptoms Respiratory: No Cough, No Short Of Breath Cardiac: No Chest Pain, No Edema, No Syncope Abdominal/Gastrointestinal: No Abdominal Pain, No Nausea, No Vomiting, No Diarrhea Genitourinary Symptoms: No Dysuria Musculoskeletal: No Back Pain, No Neck Pain Skin: No Rash Neurological: No Dizziness, No Focal Weakness, No Sensory Changes Psychological: No Symptoms Endocrine: No Symptoms Hematologic/Lymphatic: No Symptoms Immunological/Allergic: No Symptoms Objective Exam General Appearance: no apparent distress, alert Neurologic Exam: alert, oriented x 3, cooperative, normal mood/affect, nml cerebellar function, sensation nml, No motor deficits Skin Exam: normal color, warm, dry Eye Exam: PERRL, EOMI, eyes nml inspection Ears, Nose, Throat Exam: normal ENT inspection, pharynx normal, moist mucous membranes Neck Exam: normal inspection, non-tender, supple, full range of motion Respiratory Exam: normal breath sounds, lungs clear, No respiratory distress Cardiovascular Exam: regular rate/rhythm, normal heart sounds Gastrointestinal/Abdomen Exam: soft, No tenderness, No mass Extremity Exam: normal inspection, normal range of motion Back Exam: normal inspection, normal range of motion, No CVA tenderness, No vertebral tenderness Pelvic Exam: deferred Rectal Exam: deferred OBJECTIVE DATA Vital Signs: Vital Signs - 24 hr Temp Pulse Resp BP Pulse Ox 08/15/17 07:55 98.7 F 74 16 128/64 94 L 08/15/17 07:00 64 18 91 L 08/15/17 04:00 99.4 F 70 15 137/60 92 L 08/14/17 23:57 99.0 F 73 16 135/65 94 L 08/14/17 23:38 75 16 95 08/14/17 19:51 66 14 97 08/14/17 19:33 99.5 F 70 16 113/58 94 L 08/14/17 16:00 99.4 F 83 16 135/61 95 08/14/17 14:58 72 24 08/14/17 11:32 98.5 F 73 16 118/58 92 L 08/14/17 11:16 65 14 97 08/14/17 08:32 84 24 96 Pain Assessment - Last Documented Pain Intensity 8 Pain Scale Used 0-10 Pain Scale Intake and Output: Intake & Output 08/12/17 08/13/17 08/14/17 08/15/17 11:59 11:59 11:59 11:59 Intake Total 1901 1060 Output Total 1480 2450 Balance 421 -1390 Weight 124.5 kg 124.2 kg Lab Results: Accuchecks Date 08/14/17 Time 21:00 Accucheck Value: 94 Accucheck Value: 108 Accucheck Value: 118 Assessment/Plan (1) Influenza A Current Visit: Yes Status: Acute Code(s): J10.1 - FLU DUE TO OTH IDENT INFLUENZA VIRUS W OTH RESP MANIFEST (2) Type 2 diabetes mellitus Current Visit: Yes Status: Chronic Qualifiers: Diabetes mellitus complication status: with other specified complication Diabetes mellitus penitentiary insulin use: without penitentiary use Qualified Code( s): E11.69 - Type 2 diabetes mellitus with other specified complication
--- NOTE | 2017-08-15 08:48 | PCM.DCORD ---
- Discharge Discharge Date: 08/15/17 Disposition: Home, Self-Care Condition: Stable Prescriptions: New Guaifenesin/Codeine 5 ml [Robitussin AC Syrup Unit Dose Cup] 5 ml PO Q4H PRN PRN #150 udcup PRN Reason: Cough Continue Rosuvastatin Calcium [Crestor] 10 mg PO HS Alprazolam 0.25 mg [xanAX 0.25 MG] 0.25 mg PO HS Lisinopril 10 mg [Zestril 10 MG] 20 mg PO DAILY Glyburide 2.5 mg PO DAILY Additional Instructions: ANNAJOSSIE EZE was seen on 08/15/17 for Influenza A, during your visit Laboratory, Radiology and/or other procedures may have been ordered. It is very important that you follow-up with your Primary Care Physician KAYLA MEJIA within the next 24-48 hours to review your Emergency Room visit and the final results of testing that was ordered. Some test results such as Urine Cultures, Blood Cultures, and other cultures if ordered will not be finalized for 24-48 hours. If you do not have a Primary Care Provider please call the medical records department at [phone] to obtain a copy of your results or you may sign into our patient portal to obtain these results by visiting us @ [email or web address] and completing the following steps: 1. Click on the Patient Portal link 2. Click the Patient Self Enrollment Link to complete the enrollment form and entering your 3. Once the enrollment form is completed you will receive an email with a temporary ID and password at the email address you provided. 4. Next choose a user name and password. Your user name must be at least 4 characters long and your password must be at least 4 characters long. 5. Choose a security question from the list and provide your answer to the question. If you already have signed into the Health Portal you may access your Health Care Information 05/02 by the following steps: 1. Login to our website @ [email or web address] 2. Enter your original user name and password. FAQS The [facility] Health Portal is an online tool that contains your Lab Results, Radiology Reports, Visit History, Discharge Instructions and Health Summary Lab and Radiology Results will not be available for 72 hours on the portal. The Portal is a secure site, passwords are encryted and URLs are re-written so they cannot be copied and pasted. You and authorized family members are the only ones who can access your Portal. Also there is a timeout feature that protects your information if you leave the Portal page open. If you have technical difficulty please use the Contact Us link on the page this will allow you to submit any questions you have regarding the Portal or you may contact the Medical Record Department at [phone]. Follow up with: KAYLA MEJIA [Primary Care Provider] - 1 Week
[2017-08-15] MEDS: Zestril 20 MG PO SCH (09:00)
== END 2017-08-15 11:10 | disposition home or self-care (01) ==
LOC: ED 17:30 → MED SURG 20:34
PROVIDERS: ADMIT General Practice; ATTEND General Practice
DX: J10.1 Influenza due to other identified influenza virus with other respiratory manifestations (principal); E11.65 Type 2 diabetes mellitus with hyperglycemia; Z85.42 Personal history of malignant neoplasm of other parts of uterus; Z85.72 Personal history of non-Hodgkin lymphomas
CPT/HCPCS: 36000; 36415; 71046; 80053; 81002; 82805; 82962; 83036; 83605; 85025; 85610; 85730; 87040; 87086; 87631; 93005; 93041; 94150; 94640; 94760; 96360; 99285; G0378; A9270-GY

== ENCOUNTER 2018-01-29 07:24 | Day surgery (SDC) | payer MEDICARE ==
[~2018-01-29 07:24] MED LIST: Lactated Ringers 1,000 ML IV ONE
[2018-01-29] MEDS ORDERED: DIPRIVAN 200 MG/20 ML IV ONE (07:25)
[2018-01-29] MEDS ORDERED: Lactated Ringers 1,000 ML IV SCH (08:00)
[2018-01-29] MEDS ORDERED: TETRACAINE 0.5% STERI-UNIT SOL OP ONE ×2 (08:00)
[2018-01-29] MEDS ORDERED: Ak-Dilate OPHTHALMIC*** 0.71 ML, Cyclogyl 1% OPHTH SOL 5 ML 0.71 ML, GATIFLOXACIN 0.5% ... OP ONE ×4 (08:00)
[2018-01-29] MEDS ORDERED: Zofran 4 MG/2 ML VIAL IV PRN (09:00)
[2018-01-29] MEDS ORDERED: ACETAZOLAMIDE 250 MG TABLET PO ONE (09:00)
[2018-01-29 10:57] VITALS: O2SAT 99
[2018-01-29 11:11] VITALS: BP 168/75; PULSE 58
[2018-01-29] MEDS ORDERED: LIDOCAINE HCL 1% AMPUL 5 ML IJ ONE (12:00)
[2018-01-29] MEDS ORDERED: Epinephrine Preservative Free 1 MG/ML INTRAOP ONE (12:00)
[2018-01-29] MEDS ORDERED: BETADINE 5% OPHTHALMIC 30 ML OP ONE (12:00)
[2018-01-29] MEDS ORDERED: BSS 500 ML, Fortaz/Tazicef 1 GM** 0.2 G IO ONE ×2 (12:00)
--- NOTE | 2018-01-29 13:46 | OP ---
DATE/TIME OF OPERATION: 01/29/2018 1003 TIME DICTATED: 1258 PREOPERATIVE DIAGNOSIS: Senile cataract of right eye. POSTOPERATIVE DIAGNOSIS: Senile cataract of right eye. SURGEON: Tom Pond MD DIALYSIS EQUIPMENT TECHNICIAN: None. OPERATION: Cataract extraction of right eye with an intraocular lens implant. STANDARD __X___ COMPLEX ANESTHESIA: MAC. ___X___ Monitored anesthesia care in combination with topical and intra-cameral anesthesia (because of the established specific risk of reflux, arrhythmias, or an anxiety attack associated with ocular manipulation as well as difficulty of the fortune teller to manage such potentially catastrophic events while simultaneously attempting to complete the surgical procedure, it was deemed necessary for the patient's safety to have an anesthesiologist or a nurse commodity industry analyst present during the procedure whenever possible. The anesthesiologist or the nurse commodity industry analyst was utilized to monitor and regulate the intravenous sedation of the patient, so the patient was cooperative, relaxed, and comfortable). Topical anesthesia using Tetracaine eye drops together with intra cameral anesthesia using Lidocaine 1% MPF. The nurse was utilized to monitor the patient. ANESTHESIA PROVIDER: Hilton Mike CRNA. COMPLICATIONS: None. BLOOD LOSS: None. INDICATIONS: The patient is undergoing cataract surgery in the hopes of eliminating the visual complaints and difficulty. PROCEDURE: After arriving at the facility's outpatient surgery area, an IV was started; the patient was given 5 mg of p.o. Versed. (If an anesthesia provider was not monitoring the patient) The patient was then given topical anesthetic Tetracaine eye drops. A cotton pellet was soaked into a solution of a combination of Zymaxid 0.5%, Franck-Synephrine 2.5% and Ocufen (other drops might have been substituted referenced in the patient's record). The pellet was inserted by the RN into the lower conjunctival cul-de-sac with a sterile forceps and left for 20 minutes. The pellet was then removed by the RN with a sterile forceps before taking the patient to the operating room. The preoperative area nurse identified the patient and marked the correct eye to be operated on. I identified the correct eye to be operated on and marked it appropriately in the outpatient surgery area. The patient was then taken into the operating room. Tetracaine eye drops were installed again in the correct eye. The eyelids and the lashes and the lid margins were scrubbed with Betadine solution. One drop of the diluted Betadine solution was placed in the conjunctival cul-de-sac for 45 seconds and then was irrigated. A drop of Tetracaine Gel was placed in the conjunctival cul-de-sac. The patient's forehead was taped to secure it during the procedure. The patient was monitored. The patient was then draped in the usual way for this procedure. An eye speculum was used to separate the eyelids. The eye was then fixated and a temporal 2.5 mm incision was made in the clear cornea temporally at the limbus. Through the incision, 0.25 cc of 1% non-preserved lidocaine was injected into the anterior chamber for intracameral anesthesia. The anterior chamber was then filled with viscoelastic. The pupil was small. I felt that it would be safer to mechanically dilate the pupil. A Malyugin ring was used at this point which dilated the pupil. That was removed at the end of the procedure prior to aspiration of the viscoelastic from the anterior chamber and posterior to the intraocular lens implant. The cataract had a great amount of cortical changes. That rendered seeing the anterior capsule difficult for a safe performance of an anterior capsulotomy. I injected an air bubble into the anterior chamber. I then injected 1 ML of vision blue solution into the anterior chamber. The vision blue solution was irrigated from the anterior chamber after 30 seconds. The anterior capsule was stained which facilitated performing the anterior capsulotomy safely. After that was completed, a cystotome was introduced into the anterior chamber and a round anterior capsulotomy was performed. The capsule was removed by a forceps. Hydrodissection was next carried utilizing a 25-gauge cannula and balanced salt solution to delineate the cortical material from the capsule and the nucleus from the cortical material. The nucleus was rotated freely into the capsular bag with no difficulty. The phaco tip of the [employer] Phacoemulsifier was introduced into the anterior chamber and two grooves were made into the nucleus 90 degrees apart. Using two spatulas resulted into the nucleus being fractured into four quadrants. The phaco tip was then used to remove each quadrant of the nucleus. Viscoelastic was used during this process to protect the corneal endothelium. Once the entire nucleus was removed, the phaco tip then was removed and the irrigation tip was introduced into the eye and the cortex was removed. The posterior capsule was polished. It was noticed that there was a tear into the posterior capsule with few vitreous strands into the pupil plan. An anterior vitrectomy was performed. A 24.00 diopter, SN60WF, posterior chamber lens implant, was inspected and found to be grossly normal. The implant was inserted into the implant injector cartridge; Viscoelastic again was introduced into the anterior chamber, which filled the capsular bag. The implant injector's cartridge tip was placed at the limbal wound and the posterior chamber implant was released into the capsular bag and rotated appropriately. The implant was found to be into the capsular bag and it was centered. ___X__ 0.2 ml of Tri-Moxi was introduced via 27 gauge cannula into the vitreous cavity through the ciliary processes. Viscoelastic was aspirated from the anterior chamber and posterior to the intraocular lens implant from the capsular bag using the irrigating tip. The anterior chamber was irrigated and filled with 5 cc antibiotic solution (500 cc of BSS plus 2 ml of Fortaz 100 mg/ml) ( if patient was not allergic to the medication). The lips of the corneal incision were hydrated using BSS solution. The anterior chamber was checked and found to be water tight. One drop each of antibiotic, steroid and NSAID drops (refer to chart for drops used) were placed in the conjunctival cul-de-sac of the operated eye. Patient tolerated the procedure quite well and left the operating room in satisfactory condition. DISCHARGE SUMMARY: The patient was released in stable condition. The patient and those with the patient were given an instruction sheet as of how to care for the eye after surgery as well as counseling on any abnormal laboratory studies by the postoperative RN. The patient was also given an appointment card for follow-up in the office and is to call immediately for any difficulties including but not limited to pain in the eye, decreased vision, discharge from the eye, headache and or fever. DISCHARGE DIAGNOSIS: Pseudophakia of right eye.
== END 2018-01-29 11:20 | disposition home or self-care (01) ==
LOC: SDC 07:24
PROVIDERS: ATTEND Ophthalmology
PROC: 08RJ3JZ Replacement of Right Lens with Synthetic Substitute, Percutaneous Approach (ICD-10-PCS; principal; 2018-01-29)
PROC: 08B43ZZ Excision of Right Vitreous, Percutaneous Approach (ICD-10-PCS; 2018-01-29)
DX: H25.9 Unspecified age-related cataract (principal); I10 Essential (primary) hypertension; Z79.899 Other long term (current) drug therapy
CPT/HCPCS: 66984; 67005; C1780; 99100; J0171; J2704; A9270-GY

== ENCOUNTER 2018-04-02 07:57 | Day surgery (SDC) | payer MEDICARE ==
[2018-04-02] MEDS ORDERED: DIPRIVAN 200 MG/20 ML IV ONE (07:58)
[2018-04-02] MEDS ORDERED: TETRACAINE 0.5% STERI-UNIT SOL OP ONE ×2 (08:00)
[2018-04-02] MEDS ORDERED: Lactated Ringers 1,000 ML IV SCH (08:00)
[2018-04-02] MEDS ORDERED: Ak-Dilate OPHTHALMIC*** 0.71 ML, Cyclogyl 1% OPHTH SOL 5 ML 0.71 ML, GATIFLOXACIN 0.5% ... OP ONE ×4 (08:00)
[2018-04-02] MEDS ORDERED: Lactated Ringers 1,000 ML IV ONE (08:08)
[2018-04-02] MEDS ORDERED: Zofran 4 MG/2 ML VIAL IV PRN (09:00)
[2018-04-02] MEDS ORDERED: ACETAZOLAMIDE 250 MG TABLET PO ONE (09:00)
[2018-04-02] MEDS ORDERED: LIDOCAINE HCL 1% AMPUL 5 ML IJ ONE (10:00)
[2018-04-02] MEDS ORDERED: Epinephrine Preservative Free 1 MG/ML INTRAOP ONE (10:00)
[2018-04-02] MEDS ORDERED: BETADINE 5% OPHTHALMIC 30 ML OP ONE (10:00)
[2018-04-02] MEDS ORDERED: BSS 500 ML, Fortaz/Tazicef 1 GM** 0.2 G IO ONE ×2 (10:00)
--- NOTE | 2018-04-02 14:51 | OP ---
DATE/TIME OF OPERATION: 04/02/2018 1119 TIME DICTATED: PREOPERATIVE DIAGNOSIS: Senile cataract of left eye. POSTOPERATIVE DIAGNOSIS: Senile cataract of left eye. SURGEON: Tom Pond MD EXPLORATION MANAGER: None. OPERATION: Cataract extraction of left eye with an intraocular lens implant. STANDARD __X___ COMPLEX ANESTHESIA: MAC. ____X__ Monitored anesthesia care in combination with topical and intra-cameral anesthesia (because of the established specific risk of reflux, arrhythmias, or an anxiety attack associated with ocular manipulation as well as difficulty of the hyperion analyst to manage such potentially catastrophic events while simultaneously attempting to complete the surgical procedure, it was deemed necessary for the patient's safety to have an anesthesiologist or a nurse wire chief present during the procedure whenever possible. The anesthesiologist or the nurse wire chief was utilized to monitor and regulate the intravenous sedation of the patient, so the patient was cooperative, relaxed, and comfortable). Topical anesthesia using Tetracaine eye drops together with intra cameral anesthesia using Lidocaine 1% MPF. The nurse was utilized to monitor the patient. ANESTHESIA PROVIDER: Hilton Mike CRNA. COMPLICATIONS: None. BLOOD LOSS: None. INDICATIONS: The patient is undergoing cataract surgery in the hopes of eliminating the visual complaints and difficulty. PROCEDURE: After arriving at the facility's outpatient surgery area, an IV was started; the patient was given 5 mg of p.o. Versed. (If an anesthesia provider was not monitoring the patient) The patient was then given topical anesthetic Tetracaine eye drops. A cotton pellet was soaked into a solution of a combination of Zymaxid 0.5%, Franck-Synephrine 2.5% and Ocufen (other drops might have been substituted referenced in the patient's record). The pellet was inserted by the RN into the lower conjunctival cul-de-sac with a sterile forceps and left for 20 minutes. The pellet was then removed by the RN with a sterile forceps before taking the patient to the operating room. The preoperative area nurse identified the patient and marked the correct eye to be operated on. I identified the correct eye to be operated on and marked it appropriately in the outpatient surgery area. The patient was then taken into the operating room. Tetracaine eye drops were installed again in the correct eye. The eyelids and the lashes and the lid margins were scrubbed with Betadine solution. One drop of the diluted Betadine solution was placed in the conjunctival cul-de-sac for 45 seconds and then was irrigated. A drop of Tetracaine Gel was placed in the conjunctival cul-de-sac. The patient's forehead was taped to secure it during the procedure. The patient was monitored. The patient was then draped in the usual way for this procedure. An eye speculum was used to separate the eyelids. The eye was then fixated and a temporal 2.5 mm incision was made in the clear cornea temporally at the limbus. Through the incision, 0.25 cc of 1% non-preserved lidocaine was injected into the anterior chamber for intracameral anesthesia. The anterior chamber was then filled with viscoelastic. The pupil was small. I felt that it would be safer to mechanically dilate the pupil. A Malyugin ring was used at this point which dilated the pupil. That was removed at the end of the procedure prior to aspiration of the viscoelastic from the anterior chamber and posterior to the intraocular lens implant. The cataract had a great amount of cortical changes. That rendered seeing the anterior capsule difficult for a safe performance of an anterior capsulotomy. I injected an air bubble into the anterior chamber. I then injected 1 ML of vision blue solution into the anterior chamber. The vision blue solution was irrigated from the anterior chamber after 30 seconds. The anterior capsule was stained which facilitated performing the anterior capsulotomy safely. After that was completed, a cystotome was introduced into the anterior chamber and a round anterior capsulotomy was performed. The capsule was removed by a forceps. Hydrodissection was next carried utilizing a 25-gauge cannula and balanced salt solution to delineate the cortical material from the capsule and the nucleus from the cortical material. The nucleus was rotated freely into the capsular bag with no difficulty. The phaco tip of the [employer] Phacoemulsifier was introduced into the anterior chamber and two grooves were made into the nucleus 90 degrees apart. Using two spatulas resulted into the nucleus being fractured into four quadrants. The phaco tip was then used to remove each quadrant of the nucleus. Viscoelastic was used during this process to protect the corneal endothelium. Once the entire nucleus was removed, the phaco tip then was removed and the irrigation tip was introduced into the eye and the cortex was removed. The posterior capsule was polished. It was noticed that there was a tear into the posterior capsule with few vitreous strands into the pupil plan. An anterior vitrectomy was performed. A 23.50 diopter, SN60WF, posterior chamber lens implant, was inspected and found to be grossly normal. The implant was inserted into the implant injector cartridge; Viscoelastic again was introduced into the anterior chamber, which filled the capsular bag. The implant injector's cartridge tip was placed at the limbal wound and the posterior chamber implant was released into the capsular bag and rotated appropriately. The implant was found to be into the capsular bag and it was centered. ___X__ 0.2 ml of Tri-Moxi was introduced via 27 gauge cannula into the vitreous cavity through the ciliary processes. Viscoelastic was aspirated from the anterior chamber and posterior to the intraocular lens implant from the capsular bag using the irrigating tip. The anterior chamber was irrigated and filled with 5 cc antibiotic solution (500 cc of BSS plus 2 ml of Fortaz 100 mg/ml) ( if patient was not allergic to the medication). The lips of the corneal incision were hydrated using BSS solution. The anterior chamber was checked and found to be water tight. One drop each of antibiotic, steroid and NSAID drops (refer to chart for drops used) were placed in the conjunctival cul-de-sac of the operated eye. Patient tolerated the procedure quite well and left the operating room in satisfactory condition. DISCHARGE SUMMARY: The patient was released in stable condition. The patient and those with the patient were given an instruction sheet as of how to care for the eye after surgery as well as counseling on any abnormal laboratory studies by the postoperative RN. The patient was also given an appointment card for follow-up in the office and is to call immediately for any difficulties including but not limited to pain in the eye, decreased vision, discharge from the eye, headache and or fever. DISCHARGE DIAGNOSIS: Pseudophakia of left eye.
[2018-04-02 14:55] VITALS: O2SAT 98
[2018-04-02 14:57] VITALS: BP 126/65; PULSE 58
== END 2018-04-02 12:45 | disposition home or self-care (01) ==
LOC: SDC 07:57
PROVIDERS: ATTEND Ophthalmology
DX: I10 Essential (primary) hypertension (principal)
CPT/HCPCS: 66984; 67005; 82962; 94250; C1780; 99100; J0171; J2704; A9270-GY

== ENCOUNTER 2019-07-07 00:17 | Emergency (ER) | payer MEDICARE ==
[2019-07-07 00:35] VITALS: O2SAT 99
--- NOTE | 2019-07-07 00:56 | ERPHSYRPT ---
- History of Present Illness Time Seen by Provider: 07/07/19 00:43 Source: patient Exam Limitations: no limitations Patient Subjective Stated Complaint: pt arrived in er. states her r leg is suddenly swolen and has a knot in the back of it, states that she has no pain, but just noticed that her leg was swollen as she was sitting on the couch at home. states she has afib and is concerned about blood clots Triage Nursing Assessment: pt is alert and oriented, states she has no pain at this time and can move all extremities with ease. Physician History: 69 yo with AFIB on Eliquis is here with right leg swelling from calf down/ankle . noticed yesterday morning , mild to moderate pain with walking. mild swelling of the ankle aswell. no redness/fever or chills. denies any fall/direct trauma. concerned about DVT Occurred: this morning Quality: constant Severity of Pain-Max: mild Severity of Pain-Current: mild Modifying Factors: Improves With: nothing, movement Allergies/Adverse Reactions: rivaroxaban [From Xarelto] Allergy (Verified 07/07/19 00:36) Home Medications: Rosuvastatin Calcium [Crestor] 10 mg PO HS 10/09/12 [History] Glyburide 2.5 mg PO DAILY 10/20/15 [History] ALPRAZolam [Alprazolam] 0.25 mg PO HS 03/20/18 [History] Apixaban [Eliquis 2.5 mg Tablet] 2.5 mg PO DAILY 07/07/19 [History] Hctz/Triamterene 25/37.5 mg [Maxzide 25MG] 12.5 mg PO DAILY 07/07/19 [History] Hx Tetanus, Diphtheria Vaccination/Date Given: Yes Hx Influenza Vaccination/Date Given: Yes Hx Pneumococcal Vaccination/Date Given: No - Review of Systems Constitutional: No Symptoms Eyes: No Symptoms Ears, Nose, & Throat: No Symptoms Respiratory: No Symptoms Cardiac: No Symptoms Abdominal/Gastrointestinal: No Symptoms Musculoskeletal: Joint Pain, Joint Swelling Skin: No Symptoms Neurological: No Symptoms Psychological: No Symptoms Endocrine: No Symptoms Hematologic/Lymphatic: No Symptoms - Past Medical History Pertinent Past Medical History: Yes Neurological History: No Pertinent History ENT History: Cataracts Cardiac History: Hypertension Respiratory History: No Pertinent History Endocrine Medical History: No Pertinent History Musculoskeletal History: No Pertinent History GI Medical History: Liver Cancer History: No Pertinent History Psycho-Social History: Anxiety Female Reproductive Disorders: Uterine Cancer Other Medical History: hx of liver cancer, non hodgkins lymphoma, bone marrow and uterine cancer. - Past Surgical History Past Surgical History: Yes Neuro Surgical History: No Pertinent History Cardiac: No Pertinent History Respiratory: No Pertinent History Gastrointestinal: Appendectomy, Cholecystectomy Genitourinary: No Pertinent History Musculoskeletal: No Pertinent History Female Surgical History: Hysterectomy, Section Other Surgical History: 2 csections. liver biopsy - Social History Smoking Status: Never smoker Exposure to second hand smoke: No Drug Use: none Patient Lives Alone: No - Female History Hx Last Menstrual Period: hysterectomy - Nursing Vital Signs Nursing Vital Signs: Initial Vital Signs Temperature 97.9 F 07/07/19 00:20 Pulse Rate 86 07/07/19 00:20 Respiratory Rate 18 07/07/19 00:20 Blood Pressure 144/88 07/07/19 00:20 O2 Sat by Pulse Oximetry 99 07/07/19 00:20 Pain Scale Pain Intensity 0 - Physical Exam General Appearance: no apparent distress Eyes, Ears, Nose, Throat Exam: normal ENT inspection Neck Exam: normal inspection Cardiovascular/Respiratory Exam: chest non-tender, normal breath sounds Gastrointestinal/Abdominal Exam: non-tender, soft Hips Exam: bilateral: non-tender, normal inspection, normal range of motion Legs Exam: right leg: pain (CALF), soft tissue tenderness, swelling, left leg: non-tender, normal inspection, normal range of motion Knees Exam: bilateral knee: non-tender, normal inspection, normal range of motion Ankle Exam: right ankle: pain, soft tissue tenderness, swelling Neuro/Tendon Exam: normal sensation, normal motor functions Mental Status Exam: alert, oriented x 3, cooperative Skin Exam: normal color, warm, dry SpO2 Interpretation: normal SpO2: 99 O2 Delivery: Room Air - Course Nursing assessment & vital signs reviewed: Yes Ordered Tests: Active Orders 24 hr Category Date Time Status ANKLE (3 VIEWS) Stat Exams 07/07/19 01:15 Taken VENOUS UNILAT/LIMITED EXTREMIT [US] Stat Exams 07/07/19 00:40 Taken Medication Summary Discontinued Medications Generic Name Dose Route Start Last Admin Trade Name Freq PRN Reason Stop Dose Admin Oxycodone/Acetaminophen 1 tab 07/07/19 01:02 07/07/19 01:10 Percocet Tablet 5/325mg PO 07/07/19 01:03 1 tab STAT ONE Administration Oxycodone/Acetaminophen Confirm 07/07/19 01:09 Percocet Tablet 5/325mg Administered 07/07/19 01:10 Dose 1 tab .ROUTE .STK-MED ONE - Progress Progress: improved, re-examined Progress Note: 07/07/19 02:00 r/o DVT,fracture dislocation of ankle. no signs of cellulitis/septic joint . recommended tuylenol to take as needed and outpatient follow up. discussed sx/ sn of worsening needing return which she seems understanding Counseled pt/family regarding: diagnosis, need for follow-up, rad results - Departure Departure Disposition: Home Clinical Impression: Acute pain of right lower extremity Condition: Stable Critical Care Time: No Referrals: KAYLA MEJIA [Primary Care Provider] - Follow Up with PCP/3 days Instructions: Deep Vein Thrombosis (Blood Clots in the Legs) Additional Instructions: take tylenol as needed. leg elvation. follow up with PCP for re evaluation. return for any increased pain/swelling or if has redness/difficulty movements of ankle
[2019-07-07] MEDS ORDERED: PERCOCET TABLET 5/325MG PO ONE (01:02)
[2019-07-07] MEDS ORDERED: PERCOCET TABLET 5/325MG ONE (01:09)
[2019-07-07 02:05] VITALS: BP 115/76; PULSE 79
--- NOTE | 2019-07-07 08:40 | XRAY ---
Indication: Right leg swelling. Two-dimensional sonogram and color Doppler imaging of the major venous vessels of the right leg was performed. Comparison: None No thrombus seen in the examined deep veins vessels of the right leg including greater saphenous vein. Veins demonstrate normal compressibility. Venous waveforms are normal with and without augmentation. Impression: Right leg negative for DVT. Comment: Preliminary report was given.
--- NOTE | 2019-07-07 09:25 | XRAY ---
Indication: Lateral pain/edema. No known injury. Comparison: None 3 portable views of the right ankle demonstrates mild soft tissue swelling, small heel spurs, small distal tibia bony exostosis, and Achilles tendon calcification presumed sequela to old injury/inflammation. No other bony, articular, or soft tissue abnormalities.
== END 2019-07-07 02:12 | disposition home or self-care (01) ==
LOC: ED 00:17
DX: M79.661 Pain in right lower leg (principal); I48.91 Unspecified atrial fibrillation; Z79.01 Long term (current) use of anticoagulants; M79.89 Other specified soft tissue disorders; I10 Essential (primary) hypertension; Z85.05 Personal history of malignant neoplasm of liver; Z85.72 Personal history of non-Hodgkin lymphomas; Z85.42 Personal history of malignant neoplasm of other parts of uterus
CPT/HCPCS: 73610; 93971; 99284; A9270-GY

== ENCOUNTER 2020-07-10 02:10 | Emergency (ER) | payer MEDICARE ==
[2020-07-10] MEDS ORDERED: XYLOCAINE 1% HCL 20 ML MDV IJ ONE (02:11)
[2020-07-10] MEDS ORDERED: NEOSYNEPHRINE 0.5% NASAL SPRAY/DROPS NS ONE (02:24)
--- NOTE | 2020-07-10 02:24 | ERPHSYRPT ---
- History of Present Illness Time Seen by Provider: 07/10/20 02:15 Source: patient Exam Limitations: no limitations Physician History: This is a 70-year-old overweight white female who is on Eliquis and aspirin and took her nighttime dose of these medications and presents with sudden onset of epistaxis from the left nostril. It occurred approximate 11 PM. Initially, the blood stopped with pressure. However it recurred and she called EMS who brought the patient into this facility. Patient has a pacemaker in place. Timing/Duration: abrupt onset Severity: moderate ENT Location: nose Prearrival Treatment: no prearrival treatment Modifying Factors: Improves With: nothing Associated Symptoms: epistaxis Allergies/Adverse Reactions: rivaroxaban [From Xarelto] Allergy (Verified 07/10/20 02:22) Home Medications: Rosuvastatin Calcium [Crestor] 10 mg PO HS 10/09/12 [History] Glyburide 2.5 mg PO DAILY 10/20/15 [History] ALPRAZolam [Alprazolam] 0.25 mg PO HS 03/20/18 [History] Apixaban [Eliquis 2.5 mg Tablet] 2.5 mg PO DAILY 07/07/19 [History] Hctz/Triamterene 25/37.5 mg [Maxzide 25MG] 12.5 mg PO DAILY 07/07/19 [History] Hx Tetanus, Diphtheria Vaccination/Date Given: Yes Hx Influenza Vaccination/Date Given: Yes Hx Pneumococcal Vaccination/Date Given: No Travel Risk - International Travel Have you traveled outside of the country in past 3 weeks: No - Coronavirus Screening Are you exhibiting any of the following symptoms?: No Close contact with a COVID-19 positive Pt in past 14-21 Days: No - Review of Systems Constitutional: No Symptoms Eyes: No Symptoms Ears, Nose, & Throat: Epistaxis Respiratory: No Symptoms (Left nostril) Cardiac: No Symptoms Abdominal/Gastrointestinal: No Symptoms Genitourinary Symptoms: No Symptoms Musculoskeletal: No Symptoms Skin: No Symptoms Neurological: No Symptoms Psychological: No Symptoms Endocrine: No Symptoms Hematologic/Lymphatic: No Symptoms Immunological/Allergic: No Symptoms All Other Systems: Reviewed and Negative - Past Medical History Pertinent Past Medical History: Yes Neurological History: No Pertinent History ENT History: Cataracts Cardiac History: Hypertension Respiratory History: No Pertinent History Endocrine Medical History: No Pertinent History Musculoskeletal History: No Pertinent History GI Medical History: Liver Cancer History: No Pertinent History Psycho-Social History: Anxiety Female Reproductive Disorders: Uterine Cancer Other Medical History: hx of liver cancer, non hodgkins lymphoma, bone marrow and uterine cancer. - Past Surgical History Past Surgical History: Yes Neuro Surgical History: No Pertinent History Cardiac: No Pertinent History Respiratory: No Pertinent History Gastrointestinal: Appendectomy, Cholecystectomy Genitourinary: No Pertinent History Musculoskeletal: No Pertinent History Female Surgical History: Hysterectomy, Section Other Surgical History: 2 csections. liver biopsy - Social History Smoking Status: Never smoker Exposure to second hand smoke: No Drug Use: none Patient Lives Alone: No - Nursing Vital Signs Nursing Vital Signs: Initial Vital Signs Temperature 98.1 F 07/10/20 02:22 Pulse Rate 89 07/10/20 02:22 Respiratory Rate 18 07/10/20 02:22 Blood Pressure 178/89 07/10/20 02:22 O2 Sat by Pulse Oximetry 97 07/10/20 02:22 Pain Scale Pain Intensity 0 - Physical Exam General Appearance: mild distress, alert, anxiety, obese Eye Exam: bilateral eye: normal inspection, PERRL, EOMI Ear Exam: bilateral ear: auricle normal Nasal Exam: active bleeding ( left nostril) Throat Exam: normal Neck Exam: normal inspection, non-tender, supple, full range of motion, trachea midline Cardiovascular/Respiratory Exam: chest non-tender, normal breath sounds, regular rate/rhythm, heart sounds normal, no respiratory distress Abdominal Exam: non-tender Neurologic Exam: alert, oriented x 3, cooperative, tray line supervisor II-XII nml as tested, normal mood/affect, nml cerebellar function, nml station & gait, sensation nml Skin Exam: normal color, warm, dry SpO2 Interpretation: normal O2 Delivery: Room Air Procedures - Additional Procedures Progress: Procedure note: A 7.5 Rhino rocket (anterior/posterior) was placed into the left nostril after moistening the rocket as directed. We inflated the balloon to the point where epistaxis was controlled and the patient was comfortable with the amount of pressure. The Rhino Rocket was secured in place with tape. Patient was observed for several minutes and no further bleeding was noted either anterior from the nostril or posteriorly in the oropharynx. - Course Nursing assessment & vital signs reviewed: Yes Ordered Tests: Medication Summary Discontinued Medications Generic Name Dose Route Start Last Admin Trade Name Tyler PRN Reason Stop Dose Admin Phenylephrine HCl 15 ml 07/10/20 02:24 07/10/20 02:32 Neosynephrine 0.5% Nasal [place]/Drops NS 07/10/20 02:25 15 ml STAT ONE Administration Phenylephrine HCl Confirm 07/10/20 02:29 Neosynephrine 0.5% Nasal [place]/Drops Administered 07/10/20 02:30 Dose 15 ml .ROUTE .STK-MED ONE - Progress Progress: improved, re-examined Progress Note: 07/10/20 03:04 Medical decision making: Immediately upon arrival to the emergency department a nasal clip was applied. Bleeding persisted posteriorly and we then advanced to Franck-Synephrine (4 sprays) into the left nostril and reapplied the nasal clip. The epistaxis was still present and therefore we placed a 7.5 (anterior/posterior) Rhino Rocket into the left nostril. The patient tolerated the procedure well. The epistaxis was controlled. Counseled pt/family regarding: diagnosis, need for follow-up - Departure Departure Disposition: Home Clinical Impression: Epistaxis Condition: Stable Critical Care Time: No Referrals: KAYLA MEJIA [Primary Care Provider] - Additional Instructions: Keep the Rhino Rocket in place. Call earth sciences professor (names provided) on 07/12/2020 to make an arrangement for an appointment to remove the Rhino Rocket in the office in the presence of an earth sciences professor. Take the antibiotics as prescribed. Return to the emergency department if bleeding recurs Prescriptions: Cephalexin Mh 500 mg [Keflex 500 mg] 500 mg PO TID #21 capsule
[2020-07-10] MEDS ORDERED: NEOSYNEPHRINE 0.5% NASAL SPRAY/DROPS ONE (02:29)
[2020-07-10 02:38] VITALS: O2SAT 97
[2020-07-10 03:05] VITALS: BP 132/92; PULSE 80
[2020-07-10] MEDS ORDERED: Rocephin 1000 MG INJ ONE (03:05)
[2020-07-10] MEDS ORDERED: Rocephin 1000 MG INJ IM ONE (03:06)
== END 2020-07-10 03:10 | disposition home or self-care (01) ==
LOC: ED 02:10
DX: R04.0 Epistaxis (principal); Z79.01 Long term (current) use of anticoagulants; Z79.899 Other long term (current) drug therapy; Z95.0 Presence of cardiac pacemaker; Z85.42 Personal history of malignant neoplasm of other parts of uterus; Z85.05 Personal history of malignant neoplasm of liver; Z85.72 Personal history of non-Hodgkin lymphomas; Z85.830 Personal history of malignant neoplasm of bone
CPT/HCPCS: 96372; 99284; J0696; A9270-GY

== ENCOUNTER 2021-03-22 14:14 | Emergency (ER) | payer MEDICARE ==
[2021-03-22] MEDS ORDERED: Zofran 4 MG/2 ML VIAL IV ONE (15:07)
[2021-03-22] MEDS ORDERED: Sodium Chloride 0.9% 1000 ML 1,000 ML IV STA (15:07)
--- NOTE | 2021-03-22 15:07 | ERPHSYRPT ---
- History of Present Illness Time Seen by Provider: 03/22/21 15:00 Historian: patient Exam Limitations: no limitations Patient Subjective Stated Complaint: " I was sent here by my doctor, I've had a lot of diarrhea and vomiting. I think my electrolytes are off balance, I have Covid too". Triage Nursing Assessment: Pt presents to ER with complaints of symptoms related to Covid 19. Complains of vomiting, diarrhea, nausea, shortness of breath, pro ductive cough since 03/12/21. Pt respirations are slightly labored, breath sounds slightly diminished throughout. Pt has productive cough with yellow/green sputum. Admits to vomiting approx 4 times today. Pt skin is pale, warm, and dry. Complains of pain in back, abdomen is soft but tender. Pt is alert and oriented x3, able to answer questions appropriate. Gait is weak, pt appears weak all over. Physician History: This is a 71-year-old white female patient of Dr. Mejia who has tested positive for the COVID-19 virus and has had symptoms of nausea, vomiting, diarrhea, shortness of breath, productive cough (yellowish-green) since March 12, 2021. Patient has a history of hypertension, diabetes anxiety. Symptoms have worsened in the last couple days especially with vomiting and diarrhea. Patient was sent here by her primary care physician for further management. Timing/Duration: day(s) (Several) Quality: aching Abdominal Pain Onset Location: generalized abdomen Severity of Pain-Max: mild (To moderate) Severity of Pain-Current: mild (To moderate) Modifying Factors: Improves With: vomiting Associated Symptoms: diarrhea, loss of appetite, nausea, shortness of breath, vomiting Allergies/Adverse Reactions: rivaroxaban [From Xarelto] Allergy (Verified 03/22/21 14:52) Home Medications: Rosuvastatin Calcium [Crestor] 10 mg PO HS 10/09/12 [History] Glyburide 2.5 mg PO DAILY 10/20/15 [History] ALPRAZolam [Alprazolam] 0.25 mg PO HS 03/20/18 [History] Apixaban [Eliquis 2.5 mg Tablet] 2.5 mg PO DAILY 07/07/19 [History] Hctz/Triamterene 25/37.5 mg [Maxzide 25MG] 12.5 mg PO DAILY 07/07/19 [History] Hx Tetanus, Diphtheria Vaccination/Date Given: Yes Hx Influenza Vaccination/Date Given: Yes Hx Pneumococcal Vaccination/Date Given: Yes Immunizations Up to Date: Yes Travel Risk - International Travel Have you traveled outside of the country in past 3 weeks: No - Coronavirus Screening Are you exhibiting any of the following symptoms?: Yes Symptoms: Cough: New Onset, Shortness of Breath, Vomiting/Diarrhea, Headaches/Body Aches/Fatigue - Vaccine Status Have you recieved a Covid-19 vaccination: No Petrology Teacher: Unknown - Vaccination Dates Dates if Unknown: n/a - Review of Systems Constitutional: Weakness Eyes: No Symptoms Ears, Nose, & Throat: No Symptoms Respiratory: Cough, Dyspnea Cardiac: No Symptoms Abdominal/Gastrointestinal: Nausea, Vomiting, Diarrhea Genitourinary Symptoms: No Symptoms Musculoskeletal: Arthralgias, Myalgias Skin: No Symptoms Neurological: No Symptoms Psychological: No Symptoms Endocrine: No Symptoms Hematologic/Lymphatic: No Symptoms Immunological/Allergic: No Symptoms All Other Systems: Reviewed and Negative - Past Medical History Pertinent Past Medical History: Yes Neurological History: No Pertinent History ENT History: Cataracts Cardiac History: Hypertension Respiratory History: No Pertinent History Endocrine Medical History: No Pertinent History Musculoskeletal History: No Pertinent History GI Medical History: Liver Cancer History: No Pertinent History Psycho-Social History: Anxiety Female Reproductive Disorders: Uterine Cancer Other Medical History: hx of liver cancer, non hodgkins lymphoma, bone marrow and uterine cancer. - Past Surgical History Past Surgical History: Yes Neuro Surgical History: No Pertinent History Cardiac: No Pertinent History Respiratory: No Pertinent History Gastrointestinal: Appendectomy, Cholecystectomy Genitourinary: No Pertinent History Musculoskeletal: No Pertinent History Female Surgical History: Hysterectomy, Section Other Surgical History: 2 csections. liver biopsy - Social History Smoking Status: Never smoker Exposure to second hand smoke: No Drug Use: none Patient Lives Alone: No - Female History Hx Now: No - Nursing Vital Signs Nursing Vital Signs: Initial Vital Signs Temperature 97.8 F 03/22/21 14:46 Pulse Rate 72 03/22/21 14:46 Respiratory Rate 18 03/22/21 14:46 Blood Pressure 124/74 03/22/21 14:46 O2 Sat by Pulse Oximetry 94 L 03/22/21 14:46 Pain Scale Pain Intensity 8 - Physical Exam General Appearance: no apparent distress, alert, anxiety Eye Exam: PERRL/EOMI, eyes nml inspection Ears, Nose, Throat Exam: normal ENT inspection, moist mucous membranes Neck Exam: normal inspection, non-tender, supple, full range of motion Respiratory Exam: normal breath sounds, lungs clear, airway intact, No chest tenderness, No respiratory distress Cardiovascular Exam: regular rate/rhythm, normal heart sounds, normal peripheral pulses Gastrointestinal/Abdomen Exam: soft, normal bowel sounds, No tenderness Pelvic Exam: not done Rectal Exam: not done Back Exam: normal inspection, normal range of motion, No CVA tenderness, No vertebral tenderness Extremity Exam: normal inspection, normal range of motion, pelvis stable Neurologic Exam: alert, oriented x 3, cooperative, paste thinner II-XII nml as tested, normal mood/affect, nml cerebellar function, nml station & gait, sensation nml Skin Exam: normal color, warm, dry Lymphatic Exam: No adenopathy SpO2 Interpretation: borderline oxygenation SpO2: 94 O2 Delivery: Room Air - Course Nursing assessment & vital signs reviewed: Yes EKG Interpreted by Me: RATE (70), Sinus Rhythm, Left [place] Deviation, NORMAL QRS, NORMAL ST-T, Other (Patient has a pacemaker in place. There is resolution of L AFB on today's EKG that was present on the comparison EKG dated August 13, 2017. Again, there is no evidence of any acute ischemic changes on today's EKG. Patient has a pacemaker in place) Ordered Tests: Active Orders 24 hr Category Date Time Status EKG-ER Only STAT Care 03/22/21 15:07 Active IV Insertion STAT Care 03/22/21 15:07 Active CHEST 1 VIEW (PORTABLE) Stat Exams 03/22/21 15:08 Completed AMYLASE Stat Lab 03/22/21 15:45 Completed BLOOD CULTURE Stat Lab 03/22/21 15:45 Received CBC W DIFF Stat Lab 03/22/21 15:45 Completed CMP Stat Lab 03/22/21 15:45 Completed INFLUENZA A+B BETSY Stat Lab 03/22/21 15:00 Completed LIPASE Stat Lab 03/22/21 15:45 Completed Lactic Acid Stat Lab 03/22/21 15:30 Completed [place] Screen Stat Lab 03/22/21 15:45 Completed TROPONIN Q3H Lab 03/22/21 15:45 Completed TROPONIN Q3H Lab 03/22/21 18:15 Ordered TROPONIN Q3H Lab 03/22/21 21:15 Ordered TROPONIN Q3H Lab 03/23/21 00:15 Ordered TROPONIN Q3H Lab 03/23/21 03:15 Ordered UA W/RFX UR CULTURE Stat Lab 03/22/21 16:27 Completed Medication Summary Generic Name Dose Route Start Last Admin Trade Name Tyler PRN Reason Stop Dose Admin Ceftriaxone Sodium/Dextrose 1 g in 50 mls @ 100 mls/hr 03/22/21 17:54 03/22/21 18:03 Rocephin 1 Gm-D5w 50 Ml Bag IV 03/22/21 18:23 100 mls/hr STAT STA 100 mls/hr Administration Discontinued Medications Generic Name Dose Route Start Last Admin Trade Name Tyler PRN Reason Stop Dose Admin Sodium Chloride 1,000 mls @ 999 mls/hr 03/22/21 15:07 03/22/21 16:48 Sodium Chloride 0.9% 1000 Ml IV 03/22/21 16:07 Infused .Q1H1M STA Infusion Sodium Chloride Confirm 03/22/21 15:19 Sodium Chloride 0.9% 1000 Ml Administered 03/22/21 15:20 Dose 1,000 mls @ ud .ROUTE .STK-MED ONE Sodium Chloride Confirm 03/22/21 15:24 Sodium Chloride 0.9% 1000 Ml Administered 03/22/21 15:25 Dose 1,000 mls @ ud .ROUTE .STK-MED ONE Ceftriaxone Sodium/Dextrose Confirm 03/22/21 17:58 Rocephin 1 Gm-D5w 50 Ml Bag Administered 03/22/21 17:59 Dose 1 g in 50 mls @ ud IV .STK-MED ONE Ondansetron HCl 4 mg 03/22/21 15:07 03/22/21 15:25 Zofran 4 Mg/2 Ml Vial IV 03/22/21 15:08 4 mg STAT ONE Administration Ondansetron HCl Confirm 03/22/21 15:19 Zofran 4 Mg/2 Ml Vial Administered 03/22/21 15:20 Dose 4 mg .ROUTE .STK-MED ONE Ondansetron HCl Confirm 03/22/21 15:23 Zofran 4 Mg/2 Ml Vial Administered 03/22/21 15:24 Dose 4 mg .ROUTE .STK-MED ONE Potassium Chloride 10 meq 03/22/21 16:57 03/22/21 17:14 Klor Con 10 Meq PO 03/22/21 16:58 10 meq STAT ONE Administration Potassium Chloride Confirm 03/22/21 17:13 Klor Con 10 Meq Administered 03/22/21 17:14 Dose 10 meq PO .STK-MED ONE Lab/Rad Data: Laboratory Result Diagrams 03/22/21 15:45 03/22/21 15:45 Laboratory Results 03/22/21 03/22/21 03/22/21 Range/Units 16:27 15:45 15:45 WBC (4.0-10.5) K/mm3 RBC (4.1-5.4) M/mm3 Hgb (12.0-16.0) gm/dl Hct (35-47) % MCV (78-100) fl MCH (26-32) pg MCHC (32-36) g/dl RDW (11.5-14.0) % Plt Count (150-450) K/mm3 MPV (7.5-11.0) fl Gran % (36.0-66.0) % Eos # (Auto) (0-0.5) Absolute Lymphs (auto) (1.0-4.6) Absolute Monos (auto) (0.0-1.3) Lymphocytes % (24.0-44.0) % Monocytes % (0.0-12.0) % Eosinophils % (0.00-5.0) % Basophils % (0.0-0.4) % Absolute Granulocytes (1.4-6.9) Basophils # (0-0.4) Sodium (137-145) mmol/L Potassium (3.5-5.1) mmol/L Chloride (98-107) mmol/L Carbon Dioxide (22-30) mmol/L Anion Gap (5-15) MEQ/L BUN (7-17) mg/dL Creatinine (0.52-1.04) mg/dL Estimated GFR ML/MIN Glucose (74-106) mg/dL Lactic Acid (0.4-2.0) Calcium (8.4-10.2) mg/dL Total Bilirubin (0.2-1.3) mg/dL AST (14-36) U/L ALT (0-35) U/L Alkaline Phosphatase (38-126) U/L Troponin I < 0.012 (0.000-0.034) ng/mL Serum Total Protein (6.3-8.2) g/dL Albumin (3.5-5.0) g/dL Amylase (30-110) U/L Lipase (23-300) U/L Urine Color YELLOW (YELLOW) Urine Appearance SLIGHTLY CLOUDY (CLEAR) Urine pH 5.0 (5-6) Ur Specific [place] 1.018 (1.005-1.025) Urine Protein NEGATIVE (Negative) Urine Ketones NEGATIVE (NEGATIVE) Urine Blood NEGATIVE (0-5) Real/ul Urine Nitrite NEGATIVE (NEGATIVE) Urine Bilirubin NEGATIVE (NEGATIVE) Urine Urobilinogen NEGATIVE (0-1) mg/dL Ur Leukocyte Esterase TRACE (NEGATIVE) Urine WBC (Auto) 6-10 (0-5) /HPF Urine RBC (Auto) 0-2 (0-2) /HPF U Hyaline Cast (Auto) 11-25 (0-2) /LPF U Epithel Cells (Auto) NONE (FEW) /HPF Urine Bacteria (Auto) NONE (NEGATIVE) /HPF Urine Mucus (Auto) SLIGHT (NEGATIVE) /HPF Urine Culture Reflexed NO (NO) Urine Glucose NEGATIVE (NEGATIVE) mg/dL Monoscreen NEGATIVE (Negative) Influenza Type A Ag (NEGATIVE) Influenza Type B Ag (NEGATIVE) Group A Strep Antibody (NEGATIVE) 03/22/21 03/22/21 03/22/21 Range/Units 15:45 15:45 15:30 WBC 6.0 (4.0-10.5) K/mm3 RBC 5.02 (4.1-5.4) M/mm3 Hgb 14.3 (12.0-16.0) gm/dl Hct 42.7 (35-47) % MCV 85.1 (78-100) fl MCH 28.5 (26-32) pg MCHC 33.5 (32-36) g/dl RDW 13.6 (11.5-14.0) % Plt Count 204 (150-450) K/mm3 MPV 11.3 H (7.5-11.0) fl Gran % 79.7 H (36.0-66.0) % Eos # (Auto) 0.05 (0-0.5) Absolute Lymphs (auto) 0.62 L (1.0-4.6) Absolute Monos (auto) 0.53 (0.0-1.3) Lymphocytes % 10.4 L (24.0-44.0) % Monocytes % 8.9 (0.0-12.0) % Eosinophils % 0.8 (0.00-5.0) % Basophils % 0.2 (0.0-0.4) % Absolute Granulocytes 4.77 (1.4-6.9) Basophils # 0.01 (0-0.4) Sodium 138 (137-145) mmol/L Potassium 3.0 L* (3.5-5.1) mmol/L Chloride 97 L (98-107) mmol/L Carbon Dioxide 26 (22-30) mmol/L Anion Gap 17.3 H (5-15) MEQ/L BUN 21 H (7-17) mg/dL Creatinine 1.21 H (0.52-1.04) mg/dL Estimated GFR 46.4 ML/MIN Glucose 162 H (74-106) mg/dL Lactic Acid 1.1 (0.4-2.0) Calcium 9.6 (8.4-10.2) mg/dL Total Bilirubin 1.10 (0.2-1.3) mg/dL AST 23 (14-36) U/L ALT 20 (0-35) U/L Alkaline Phosphatase 67 (38-126) U/L Troponin I (0.000-0.034) ng/mL Serum Total Protein 7.8 (6.3-8.2) g/dL Albumin 4.2 (3.5-5.0) g/dL Amylase 71 (30-110) U/L Lipase 117 (23-300) U/L Urine Color (YELLOW) Urine Appearance (CLEAR) Urine pH (5-6) Ur Specific [place] (1.005-1.025) Urine Protein (Negative) Urine Ketones (NEGATIVE) Urine Blood (0-5) Real/ul Urine Nitrite (NEGATIVE) Urine Bilirubin (NEGATIVE) Urine Urobilinogen (0-1) mg/dL Ur Leukocyte Esterase (NEGATIVE) Urine WBC (Auto) (0-5) /HPF Urine RBC (Auto) (0-2) /HPF U Hyaline Cast (Auto) (0-2) /LPF U Epithel Cells (Auto) (FEW) /HPF Urine Bacteria (Auto) (NEGATIVE) /HPF Urine Mucus (Auto) (NEGATIVE) /HPF Urine Culture Reflexed (NO) Urine Glucose (NEGATIVE) mg/dL Monoscreen (Negative) Influenza Type A Ag (NEGATIVE) Influenza Type B Ag (NEGATIVE) Group A Strep Antibody (NEGATIVE) 03/22/21 03/22/21 Range/Units 15:00 15:00 WBC (4.0-10.5) K/mm3 RBC (4.1-5.4) M/mm3 Hgb (12.0-16.0) gm/dl Hct (35-47) % MCV (78-100) fl MCH (26-32) pg MCHC (32-36) g/dl RDW (11.5-14.0) % Plt Count (150-450) K/mm3 MPV (7.5-11.0) fl Gran % (36.0-66.0) % Eos # (Auto) (0-0.5) Absolute Lymphs (auto) (1.0-4.6) Absolute Monos (auto) (0.0-1.3) Lymphocytes % (24.0-44.0) % Monocytes % (0.0-12.0) % Eosinophils % (0.00-5.0) % Basophils % (0.0-0.4) % Absolute Granulocytes (1.4-6.9) Basophils # (0-0.4) Sodium (137-145) mmol/L Potassium (3.5-5.1) mmol/L Chloride (98-107) mmol/L Carbon Dioxide (22-30) mmol/L Anion Gap (5-15) MEQ/L BUN (7-17) mg/dL Creatinine (0.52-1.04) mg/dL Estimated GFR ML/MIN Glucose (74-106) mg/dL Lactic Acid (0.4-2.0) Calcium (8.4-10.2) mg/dL Total Bilirubin (0.2-1.3) mg/dL AST (14-36) U/L ALT (0-35) U/L Alkaline Phosphatase (38-126) U/L Troponin I (0.000-0.034) ng/mL Serum Total Protein (6.3-8.2) g/dL Albumin (3.5-5.0) g/dL Amylase (30-110) U/L Lipase (23-300) U/L Urine Color (YELLOW) Urine Appearance (CLEAR) Urine pH (5-6) Ur Specific [place] (1.005-1.025) Urine Protein (Negative) Urine Ketones (NEGATIVE) Urine Blood (0-5) Real/ul Urine Nitrite (NEGATIVE) Urine Bilirubin (NEGATIVE) Urine Urobilinogen (0-1) mg/dL Ur Leukocyte Esterase (NEGATIVE) Urine WBC (Auto) (0-5) /HPF Urine RBC (Auto) (0-2) /HPF U Hyaline Cast (Auto) (0-2) /LPF U Epithel Cells (Auto) (FEW) /HPF Urine Bacteria (Auto) (NEGATIVE) /HPF Urine Mucus (Auto) (NEGATIVE) /HPF Urine Culture Reflexed (NO) Urine Glucose (NEGATIVE) mg/dL Monoscreen (Negative) Influenza Type A Ag NEGATIVE (NEGATIVE) Influenza Type B Ag NEGATIVE (NEGATIVE) Group A Strep Antibody NOT DETECTED (NEGATIVE) - Progress Progress: improved, re-examined Progress Note: 03/22/21 18:15 Chest x-ray shows bilateral interstitial alveolar opacities consistent with COVID-19 infection. Patient states that she is feeling much better. Her room air saturation is 98%. Her blood pressure is systolic blood pressure is 120 and systolic blood pressure 70. Heart rate in the eighties 03/22/21 18:16 Counseled pt/family regarding: lab results, diagnosis, need for follow-up, rad results - Departure Departure Disposition: Home Clinical Impression: COVID-19 virus infection, UTI (urinary tract infection), Vomiting Condition: Stable Critical Care Time: No Referrals: KAYLA MEJIA [Primary Care Provider] - Additional Instructions: Drink plenty of fluids. Take your medication as prescribed. Return to emergency department if symptoms worsen. Prescriptions: Ondansetron ODT 4 MG [Zofran Odt 4 mg] 4 mg PO Q6H PRN PRN #10 tablet PRN Reason: Vomiting Hydrocodone/Acetaminophen [Hydrocodone-Acetamn 7.5-325/15] 10 ml PO Q8H PRN PRN #120 ml MDD 30 ml PRN Reason: Cough Cefdinir 300 mg PO BID 7 Days #14 cap Prednisone 5 mg [Deltasone 5 mg] 5 mg PO TID #12 tablet
[2021-03-22] MEDS ORDERED: Sodium Chloride 0.9% 1000 ML 0 ML ONE (15:19)
[2021-03-22] MEDS ORDERED: Zofran 4 MG/2 ML VIAL ONE ×2 (15:19→15:23)
[2021-03-22] MEDS ORDERED: Sodium Chloride 0.9% 1000 ML 1,000 ML ONE (15:24)
[2021-03-22 15:54] LABS: Absolute Neutrophil Ct (ANC) 4.77 (1.4-6.9); BASOPHIL % 0.2 % (0.0-0.4); Basophil (Absolute #) 0.01 (0-0.4); Eosinophil % 0.8 % (0.00-5.0); Eosinophil (Absolute #) 0.05 (0-0.5); Hematocrit 42.7 % (35-47); Hemoglobin 14.3 gm/dl (12.0-16.0); Lymphocyte (Absolute #) 0.62 (1.0-4.6); Lymphocytes % 10.4 % (24.0-44.0); Mean Cell Volume 85.1 fl (78-100); Mean Corpuscular Hemoglobin 28.5 pg (26-32); Mean Corpuscular Hgb Concent. 33.5 g/dl (32-36); Mean Platelet Volume 11.3 fl (7.5-11.0); Monocyte (Absolute #) 0.53 (0.0-1.3); Monocytes % 8.9 % (0.0-12.0); Neutrophil % 79.7 % (36.0-66.0); Platelet Count 204 K/mm3 (150-450); Red Blood Count 5.02 M/mm3 (4.1-5.4); Red Cell Distribution Width 13.6 % (11.5-14.0)
--- NOTE | 2021-03-22 16:10 | XRAY ---
Indication: Covid 19. Comparison: October 08, 2020. Portable chest demonstrates new subtle diffuse hazy interstitial alveolar opacities bilaterally without consolidation/large effusion. Heart not enlarged again with right dual-lead pacemaker. Bony thorax intact.
[2021-03-22 16:18] LABS: ALBUMIN 4.2 g/dL (3.5-5.0); ANION GAP 17.3 MEQ/L (5-15); BILIRUBIN,TOTAL 1.1 mg/dL (0.2-1.3); Calcium 9.6 mg/dL (8.4-10.2); Creatinine 1 1.21 mg/dL (0.52-1.04); EST GLOMERULAR FILTRATION RATE 46.4 ML/MIN; Total Protein 7.8 g/dL (6.3-8.2)
[2021-03-22 16:57] LABS: Appearance SLIGHTLY CLOUDY (CLEAR); Bilirubin NEGATIVE (NEGATIVE); Blood NEGATIVE Ery/ul (0-5); Glucose NEGATIVE (NEGATIVE); Ketones NEGATIVE (NEGATIVE); Leukocyte Esterase TRACE (NEGATIVE); Mucus SLIGHT /HPF (NEGATIVE); Nitrite NEGATIVE (NEGATIVE); Protein,Urine Dip NEGATIVE (Negative); RBC 0-2 /HPF (0-2); Specific Gravity 1.018 (1.005-1.025); Urobilinogen NEGATIVE mg/dL (0-1)
[2021-03-22] MEDS ORDERED: Klor Con 10 MEQ PO ONE ×2 (16:57→17:13)
[2021-03-22 16:59] LABS: INFLUENZA A NEGATIVE (NEGATIVE); INFLUENZA B NEGATIVE (NEGATIVE)
[2021-03-22] MEDS ORDERED: ROCEPHIN 1 Gm-D5w 50 ml Bag** 1 G/50 ML IVPB IV STA (17:54)
[2021-03-22] MEDS ORDERED: ROCEPHIN 1 Gm-D5w 50 ml Bag** 1 G/50 ML IVPB IV ONE (17:58)
[2021-03-22] MEDS ORDERED: HYDROCODONE-ACETAMIN 2.5-108/5 ML SOLUTION PO STA (18:19)
[2021-03-22] MEDS ORDERED: HYDROCODONE-ACETAMIN 2.5-108/5 ML SOLUTION ONE (18:41)
[2021-03-22 19:36] VITALS: BP 112/75; PULSE 76; O2SAT 97
== END 2021-03-22 19:36 | disposition home or self-care (01) ==
LOC: ED 14:14
DX: U07.1 COVID-19 (principal); N39.0 Urinary tract infection, site not specified
CPT/HCPCS: 36000; 36415; 71045; 80053; 81001; 82150; 83605; 83690; 84484; 85025; 86308; 87040; 87400; 87651; 93005; 96360; 96374; 96375; 99284; J0696; J2405; A9270-GY

== ENCOUNTER 2023-03-04 17:59 | Emergency (ER) | payer MEDICARE ==
[2023-03-04 18:07] VITALS: PULSE 70; TEMP 97.8
[2023-03-04] MEDS ORDERED: Nitrostat 0.4 MG (ED) SL ONE ×2 (18:12→18:51)
[2023-03-04] MEDS ORDERED: Sodium Chloride 0.9% 1000 ML 1,000 ML IV STA (18:12)
[2023-03-04] MEDS ORDERED: Pepcid 20 MG VIAL IV ONE ×2 (18:12→18:52)
[2023-03-04] MEDS ORDERED: BABY ASPIRIN 81 MG CHEW PO ONE (18:12)
[2023-03-04] MEDS ORDERED: MORPHINE SULFATE 4 MG INJ IV ONE (18:12)
--- NOTE | 2023-03-04 18:18 | ERPHSYRPT ---
<JESSICA BIRD - Last Filed: 03/04/23 18:58> - History of Present Illness Time Seen by Provider: 03/04/23 18:16 Historian: patient Exam Limitations: no limitations Patient Subjective Stated Complaint: pt here for pain to chest and abd today, she states she has had 4 rounds for antiboitecs for recent pnuemonia, she states she feels worse , no fever Triage Nursing Assessment: pt alert, arrived per wc, resp easy, skin w/d/p, chest clear, dry cough, abd round and soft Physician History: pt here for pain to chest and abd today, she states she has had 4 rounds for antiboitecs for recent pnuemonia, she states she feels worse , no fever Timing/Duration: today Location: substernal, epigastric Chest Pain Radiation: no radiation Severity of Pain-Max: moderate Severity of Pain-Current: moderate Modifying Factors: Improves With: nothing Prior Chest Pain/Cardiac Workup: no prior chest pain Nitro Today/Relief: no nitro taken today Aspirin Treatment Today: no aspirin today Allergies/Adverse Reactions: rivaroxaban [From Xarelto] Allergy (Verified 03/04/23 18:01) Home Medications: Rosuvastatin Calcium [Crestor] 10 mg PO HS 10/09/12 [History] Glyburide 2.5 mg PO DAILY 10/20/15 [History] ALPRAZolam [Alprazolam] 0.25 mg PO HS 03/20/18 [History] Apixaban [Eliquis 2.5 mg Tablet] 2.5 mg PO BID 07/07/19 [History] Metformin HCl 850 mg [Glucophage 850 MG] 850 mg PO BID 03/04/23 [History] Hx Tetanus, Diphtheria Vaccination/Date Given: Yes Hx Influenza Vaccination/Date Given: Yes Hx Pneumococcal Vaccination/Date Given: Yes Immunizations Up to Date: Yes Travel Risk - International Travel Have you traveled outside of the country in past 3 weeks: No - Coronavirus Screening Are you exhibiting any of the following symptoms?: No Close contact with a COVID-19 positive Pt in past 14-21 Days: No - Vaccine Status Have you recieved a Covid-19 vaccination: No Entertainment Production Professional: Unknown - Vaccination Dates Date of 2cond Vaccination (if applicable): ? Dates if Unknown: n/a - Review of Systems Constitutional: Fatigue, Lethargy, Malaise, Weakness, No Fever, No Chills Eyes: No Symptoms Ears, Nose, & Throat: No Symptoms Respiratory: No Cough, No Dyspnea Cardiac: Chest Pain, No Edema, No Syncope Abdominal/Gastrointestinal: No Abdominal Pain, No Nausea, No Vomiting, No Diarrhea Genitourinary Symptoms: No Dysuria Musculoskeletal: No Back Pain, No Neck Pain Skin: No Rash Neurological: No Dizziness, No Focal Weakness, No Sensory Changes Psychological: No Symptoms Endocrine: No Symptoms All Other Systems: Reviewed and Negative - Past Medical History Pertinent Past Medical History: Yes Neurological History: No Pertinent History ENT History: Cataracts Cardiac History: Hypertension Respiratory History: No Pertinent History, Pneumonia Endocrine Medical History: No Pertinent History Musculoskeletal History: No Pertinent History GI Medical History: Liver Cancer History: No Pertinent History Psycho-Social History: Anxiety Female Reproductive Disorders: Uterine Cancer Other Medical History: hx of liver cancer, non hodgkins lymphoma, bone marrow and uterine cancer. - Past Surgical History Past Surgical History: Yes Neuro Surgical History: No Pertinent History Cardiac: No Pertinent History Respiratory: No Pertinent History Gastrointestinal: Appendectomy, Cholecystectomy Genitourinary: No Pertinent History Musculoskeletal: No Pertinent History Female Surgical History: Hysterectomy, Section Other Surgical History: 2 csections. liver biopsy - Social History Smoking Status: Never smoker Exposure to second hand smoke: No Drug Use: none Patient Lives Alone: No - Physical Exam General Appearance: no apparent distress, alert Eye Exam: PERRL/EOMI, eyes nml inspection Ears, Nose, Throat Exam: normal ENT inspection, moist mucous membranes Neck Exam: normal inspection, non-tender, supple, full range of motion Respiratory Exam: diminished breath sounds, crackles/rales, rhonchi, No respiratory distress Cardiovascular Exam: regular rate/rhythm, normal heart sounds Gastrointestinal/Abdomen Exam: soft, No tenderness, No mass Back Exam: normal inspection, No CVA tenderness, No vertebral tenderness Extremity Exam: normal inspection, normal range of motion Neurologic Exam: alert, oriented x 3, cooperative, normal mood/affect, sensation nml, No motor deficits Skin Exam: normal color, warm, dry SpO2: 98 - Departure Clinical Impression: Hyperbilirubinemia, Hypokalemia Cough Qualifiers: Cough type: acute Qualified Code(s): R05.1 - Acute cough Chest pain Qualifiers: Chest pain type: unspecified Qualified Code(s): R07.9 - Chest pain, unspecified Condition: Good Referrals: KAYLA MEJIA [Primary Care Provider] - Follow up with PCP 1 day Instructions: Chest Pain (DC), Cough, Adult (DC), Bilirubin Blood Level, Hypokalemia (DC) Additional Instructions: Follow-up with your medical provider to discuss further evaluation of your elevated blood bilirubin and your cough. The CT scans were nonspecific for anything causing her issues at this time and your lab work did not show any significant abnormalities outside of the elevated bilirubin slightly low potassium. Return back to the nearest emergency room if you have any new productive cough, new coughing up blood, shortness of breath, new abdominal pain, new back pain, new fever greater than 101, new hematuria, new painful urination or any other concerning signs or symptoms that were not present at today's emergency room visit for immediate reevaluation in the nearest emergency department <TIMO KIM - Last Filed: 03/05/23 01:21> - Nursing Vital Signs Nursing Vital Signs: Initial Vital Signs Pulse Rate 70 03/04/23 18:03 Respiratory Rate 24 03/04/23 18:03 Blood Pressure 111/84 03/04/23 18:03 O2 Sat by Pulse Oximetry 96 03/04/23 18:03 Pain Scale Pain Intensity 8 - Course Nursing assessment & vital signs reviewed: Yes EKG Interpreted by Me: RATE (70), Sinus Rhythm, Left [place] Deviation, NORMAL INTERVALS (Normal [place] interval; normal QTc interval), Non-specific ST Changes, Other (Nonspecific intraventricular conduction delay with positive LVH; no significant change in comparison to EKG from 03/22/2021) Rhythm Strip: 2nd degree type II block - Radiology Exams Chest X-ray Interpretation: Interpreted by me, Reviewed by me, Negative, No Fracture, No Infiltrates, Other (Positive pacemaker) - CT Exams Abdomen/Pelvis CT Interpretation: Tele-radiologist Report, Other (Overall impression:1. Splenomegaly with multiple calcifications; 2: 1.9 x 1.4 cm left adrenal gland nodule; 3. Sigmoid diverticulosis with no signs of diverticulitis; 4: Stable small fat-containing umbilical hernia; 5: Atherosclerotic vessel disease; 6: The above findings show no significant yu) Chest CT Interpretation: Tele-radiologist Report, Other (1: A tiny 2 mm nodule with surrounding groundglass haziness in the posterior segment of the right upper lobe, abutting the major fissure. This could represent endobronchial infective focus; 2. A subpleural fibrotic density with adjacent atelectatic band in the left pericardiac region; 3: Left ve) Ordered Tests: Active Orders 24 hr Category Date Time Status Housing Inspectors STAT Care 03/04/23 18:13 Active EKG-ER Only STAT Care 03/04/23 18:12 Active ABDOMEN AND PELVIS W CONTRAST [CT] Stat Exams 03/04/23 20:52 Completed CHEST 2 VIEWS (PA AND LAT) Stat Exams 03/04/23 18:44 Taken CHEST WITH CONTRAST [CT] Stat Exams 03/04/23 20:52 Completed CBC W DIFF Stat Lab 03/04/23 18:32 Completed CMP Stat Lab 03/04/23 18:32 Completed D-DIMER QUANTITATIVE Stat Lab 03/04/23 18:32 Completed LIPASE Stat Lab 03/04/23 21:58 Completed NT PRO BNPII Stat Lab 03/04/23 18:32 Completed TROPONIN Q4H Lab 03/04/23 18:32 Completed TROPONIN Q4H Lab 03/04/23 22:47 Completed TROPONIN Q4H Lab 03/05/23 02:15 Ordered Medication Summary Discontinued Medications Generic Name Dose Route Start Last Admin Trade Name Freq PRN Reason Stop Dose Admin Aspirin 81 mg 03/04/23 18:12 03/04/23 18:59 Aspirin 81 Mg Tab.Chew PO 03/04/23 18:13 81 mg STAT ONE Administration Aspirin Confirm 03/04/23 18:51 Aspirin 81 Mg Tab.Chew Administered 03/04/23 18:52 Dose 81 mg .ROUTE .STK-MED ONE Famotidine 20 mg 03/04/23 18:12 03/04/23 18:56 Famotidine 20 Mg/1 Vial IV 03/04/23 18:13 20 mg STAT ONE Administration Famotidine Confirm 03/04/23 18:52 Famotidine 20 Mg/1 Vial Administered 03/04/23 18:53 Dose 20 mg IV .STK-MED ONE Sodium Chloride 1,000 mls @ 999 mls/hr 03/04/23 18:12 03/04/23 20:26 Sodium Chloride 0.9% 1000 Ml IV 03/04/23 19:12 Infused .Q1H1M STA Infusion Sodium Chloride Confirm 03/04/23 18:52 Sodium Chloride 0.9% 1000 Ml Administered 03/04/23 18:53 Dose 1,000 mls @ ud .ROUTE .STK-MED ONE Morphine Sulfate 4 mg 03/04/23 18:12 03/04/23 18:57 Morphine Sulfate 4 Mg/Ml Injection IV 03/04/23 18:13 4 mg STAT ONE Administration Morphine Sulfate Confirm 03/04/23 18:52 Morphine Sulfate 4 Mg/Ml Injection Administered 03/04/23 18:53 Dose 4 mg .ROUTE .STK-MED ONE Nitroglycerin 0.4 mg 03/04/23 18:12 03/04/23 18:59 Nitroglycerin 0.4 Mg (Ed) 0.4 Mg Tab.Subl SL 03/04/23 18:13 Not Given STAT ONE Nitroglycerin Confirm 03/04/23 18:51 Nitroglycerin 0.4 Mg (Ed) 0.4 Mg Tab.Subl Administered 03/04/23 18:52 Dose 0.4 mg SL .STK-MED ONE Potassium Chloride 40 meq 03/04/23 22:00 03/04/23 22:14 Potassium Chloride Tab 10 Meq Tab PO 03/04/23 22:01 40 meq STAT ONE Administration Potassium Chloride Confirm 03/04/23 22:10 Potassium Chloride Tab 10 Meq Tab Administered 03/04/23 22:11 Dose 40 meq PO .STK-MED ONE Lab/Rad Data: Laboratory Result Diagrams 03/04/23 18:32 03/04/23 18:32 Laboratory Results 03/04/23 03/04/23 03/04/23 Range/Units 22:47 21:58 18:32 WBC (4.0-10.5) x10^3/uL RBC (4.1-5.4) x10^6/uL Hgb (12.0-16.0) g/dL Hct (35-47) % MCV (78-100) fL MCH (26-32) pg MCHC (32-36) g/dL RDW (11.5-14.0) % Plt Count (150-450) x10^3/uL MPV (7.5-11.0) fL Gran % (36.0-66.0) % Immature Gran % (Auto) (0.00-0.4) % Nucleat RBC Rel Count (0.00-0.1) % Eos # (Auto) (0-0.5) x10^3/uL Immature Gran # (Auto) (0.00-0.03) x10^3u/L Absolute Lymphs (auto) (1.0-4.6) x10^3/uL Absolute Monos (auto) (0.0-1.3) x10^3/uL Absolute Nucleated RBC (0.00-0.01) x10^3u/L Lymphocytes % (24.0-44.0) % Monocytes % (0.0-12.0) % Eosinophils % (0.00-5.0) % Basophils % (0.0-0.4) % Absolute Granulocytes (1.4-6.9) x10^3/uL Basophils # (0-0.4) x10^3/uL D-Dimer (0.0-0.50) mg/L Sodium (137-145) mmol/L Potassium (3.5-5.1) mmol/L Chloride (98-107) mmol/L Carbon Dioxide (22-30) mmol/L Anion Gap (5-15) MEQ/L BUN (7-17) mg/dL Creatinine (0.52-1.04) mg/dL Estimated GFR ML/MIN Glucose (74-106) mg/dL Calcium (8.4-10.2) mg/dL Total Bilirubin (0.2-1.3) mg/dL AST (14-36) U/L ALT (0-35) U/L Alkaline Phosphatase (38-126) U/L Troponin I < 0.012 < 0.012 (0.000-0.034) ng/mL NT-Pro-B Natriuret Pep 1240 (<300) pg/mL Serum Total Protein (6.3-8.2) g/dL Albumin (3.5-5.0) g/dL Lipase 132 (23-300) U/L 03/04/23 03/04/23 03/04/23 Range/Units 18:32 18:32 18:32 WBC 6.9 (4.0-10.5) x10^3/uL RBC 4.14 (4.1-5.4) x10^6/uL Hgb 13.4 (12.0-16.0) g/dL Hct 37.9 (35-47) % MCV 91.5 (78-100) fL MCH 32.4 H (26-32) pg MCHC 35.4 (32-36) g/dL RDW 15.3 H (11.5-14.0) % Plt Count 185 (150-450) x10^3/uL MPV 10.1 (7.5-11.0) fL Gran % 75.2 H (36.0-66.0) % Immature Gran % (Auto) 0.3 (0.00-0.4) % Nucleat RBC Rel Count 0.0 (0.00-0.1) % Eos # (Auto) 0.15 (0-0.5) x10^3/uL Immature Gran # (Auto) 0.02 (0.00-0.03) x10^3u/L Absolute Lymphs (auto) 0.96 L (1.0-4.6) x10^3/uL Absolute Monos (auto) 0.55 (0.0-1.3) x10^3/uL Absolute Nucleated RBC 0.00 (0.00-0.01) x10^3u/L Lymphocytes % 14.0 L (24.0-44.0) % Monocytes % 8.0 (0.0-12.0) % Eosinophils % 2.2 (0.00-5.0) % Basophils % 0.3 (0.0-0.4) % Absolute Granulocytes 5.18 (1.4-6.9) x10^3/uL Basophils # 0.02 (0-0.4) x10^3/uL D-Dimer 0.39 (0.0-0.50) mg/L Sodium 137 (137-145) mmol/L Potassium 3.4 L (3.5-5.1) mmol/L Chloride 100 (98-107) mmol/L Carbon Dioxide 29 (22-30) mmol/L Anion Gap 12.2 (5-15) MEQ/L BUN 23 H (7-17) mg/dL Creatinine 1.08 H (0.52-1.04) mg/dL Estimated GFR 52.6 ML/MIN Glucose 144 H (74-106) mg/dL Calcium 9.3 (8.4-10.2) mg/dL Total Bilirubin 2.30 H (0.2-1.3) mg/dL AST 21 (14-36) U/L ALT 20 (0-35) U/L Alkaline Phosphatase 64 (38-126) U/L Troponin I (0.000-0.034) ng/mL NT-Pro-B Natriuret Pep (<300) pg/mL Serum Total Protein 6.6 (6.3-8.2) g/dL Albumin 3.8 (3.5-5.0) g/dL Lipase (23-300) U/L - Progress Progress: re-examined Air Movement: good Progress Note: 03/04/23 20:53 Patient is noted to have respiratory distress but does have an occasional barking cough. Due to patient having 4 rounds of antibiotics for potential pneumonia and having hyperbilirubinemia that is new for the patient, patient have a CT of the chest, abdomen and pelvis ordered 03/05/23 01:07 Patient is in no type of respiratory distress and has no shortness of breath or any concerning findings on repeat evaluation at this time no signs of thrush in her oropharynx on repeat evaluation that she was concerned about 03/05/23 01:17 Patient is a 73-year-old female who was evaluated previous emergency room attending due to having cough and chest pain head was found on my evaluation hav e an elevated bilirubin and low potassium with a potassium replaced orally, but with chest x-ray not showing any etiology to her cough and being on 4 rounds of antibiotics, CTA chest, abdomen pelvis were performed. No specific significant abnormalities are found on the CT of the chest as patient may have a 2 mm nodule that could be in the right upper lobe that could be a potential sign of endobro nchial infective focus but would not was not definitive and other than some other findings of LVH with her pacemaker leads in situ there is no other significant abnormalities outside of some atelectatic bands and fibrotic density seen in the pericardiac region. Patient had 2 negative troponins here in the emergency department no significant abnormalities on the EKG that was new, and with no other concerning findings with the chest pain she is at low risk for acute cardiac, pulmonary vascular as she had a normal D-dimer, any new pulmonary findings, no new referred upper GI issues and I feel she can be discharged home to follow-up with her outpatient primary care provider on 03/05/2023. Patient return back to nearest emergency room for any new chest pain, new productive cough, new hemoptysis, new melena or hematochezia, new abdominal pain, new flank pain, hematuria, new focal weakness or any other concerning signs or symptoms that were not present at today's emergency room visit for immediate reevaluation in the nearest emergency room. Patient at this time can be discharged home as she is at low risk and can be followed up as an outpatient Antibiotics given: No Counseled pt/family regarding: lab results, diagnosis, need for follow-up, rad results - Departure Departure Disposition: Home Critical Care Time: No
[2023-03-04 18:36] LABS: Absolute Neutrophil Ct (ANC) 5.18 x10^3/uL (1.4-6.9); BASOPHIL % 0.3 % (0.0-0.4); Basophil (Absolute #) 0.02 x10^3/uL (0-0.4); Eosinophil % 2.2 % (0.00-5.0); Eosinophil (Absolute #) 0.15 x10^3/uL (0-0.5); Hematocrit 37.9 % (35-47); Hemoglobin 13.4 g/dL (12.0-16.0); IMMATURE GRAN # 0.02 x10^3u/L (0.00-0.03); IMMATURE GRAN % 0.3 % (0.00-0.4); Lymphocyte (Absolute #) 0.96 x10^3/uL (1.0-4.6); Mean Cell Volume 91.5 fL (78-100); Mean Corpuscular Hemoglobin 32.4 pg (26-32); Mean Corpuscular Hgb Concent. 35.4 g/dL (32-36); Mean Platelet Volume 10.1 fL (7.5-11.0); Monocyte (Absolute #) 0.55 x10^3/uL (0.0-1.3); Neutrophil % 75.2 % (36.0-66.0); Platelet Count 185 x10^3/uL (150-450); Red Blood Count 4.14 x10^6/uL (4.1-5.4); Red Cell Distribution Width 15.3 % (11.5-14.0); White Blood Count 6.9 x10^3/uL (4.0-10.5)
[2023-03-04 18:50] LABS: ALBUMIN 3.8 g/dL (3.5-5.0); ANION GAP 12.2 MEQ/L (5-15); BILIRUBIN,TOTAL 2.3 mg/dL (0.2-1.3); Calcium 9.3 mg/dL (8.4-10.2); Creatinine 1 1.08 mg/dL (0.52-1.04); EST GLOMERULAR FILTRATION RATE 52.6 ML/MIN; Potassium 3.4 mmol/L (3.5-5.1); Total Protein 6.6 g/dL (6.3-8.2)
[2023-03-04] MEDS ORDERED: BABY ASPIRIN 81 MG CHEW ONE (18:51)
[2023-03-04] MEDS ORDERED: Sodium Chloride 0.9% 1000 ML 1,000 ML ONE (18:52)
[2023-03-04] MEDS ORDERED: MORPHINE SULFATE 4 MG INJ ONE (18:52)
[2023-03-04 19:02] LABS: NT PRO BNPII 1240 pg/mL (<300); TROPONIN < 0.012 ng/mL (0.000-0.034)
[2023-03-04] MEDS ORDERED: Klor Con PO ONE ×2 (22:00→22:10)
--- NOTE | 2023-03-04 22:58 | XRAY ---
CLINICAL HISTORY:Hyperbilirubinemia COMPARISON:10/25/2022. TECHNIQUE:CT scan of the abdomen and pelvis was performed with IV contrast (80 cc of Isovue). Coronal and sagittal reconstructive images were also obtained. FINDINGS: Abdomen: The liver is normal in size measuring 16.4 cm craniocaudally. No diffuse or focal parenchymal abnormality. The portal vein, intrahepatic biliary radicals, and bile ducts are normal. The spleen is mildly enlarged. Multiple calcifications are scattered within its parenchyma. A heterogeneously enhancing ovoid nodule measuring 1.9 x 1.4 cm is seen in the left adrenal gland. The right adrenal gland is normal. The pancreas is unremarkable. The kidneys are normal in size and shape. No cysts, mass, calculi, or hydronephrosis. The gallbladder is surgically absent. Multiple diverticula are seen in the sigmoid colon. The ascending colon, the transverse colon, and the descending colon visualized small bowel loops are unremarkable. There is no evidence of significant enlargement of the mesenteric or retroperitoneal lymph nodes. A small fat-containing umbilical hernia measuring 1.7 x 1.2 cm. Atherosclerotic aorta and some of its branches. Pelvis: The urinary bladder is unremarkable. The uterus is surgically absent. The pelvic vasculature is unremarkable. No evidence of pelvic lymphadenopathy. Osteophytes are notes along the anterior endplates of the vertebrae. The L1-L2 and L2-L3 intervertebral disc spaces are narrowed with vacuum disc phenomenon. IMPRESSION: 1. Splenomegaly with multiple calcifications. 2. A 1.9 x 1.4 cm left adrenal gland nodule. 3. Sigmoid diverticulosis with no signs of diverticulitis 4. Stable small fat-containing umbilical hernia. 5. Atherosclerotic vessel disease. 6. The above findings show no significant change from the prior study. Electronically Signed by: Russel Killian MD. (03/04/2023 21:57:32 VEGETABLE LOADER)
--- NOTE | 2023-03-04 23:58 | XRAY ---
CLINICAL HISTORY:Hyperbilirubinemia, Cough, CP COMPARISON:05/17/2014. TECHNIQUE:Axial CT images of the chest were acquired without contrast. Coronal and sagittal reconstructions were obtained. FINDINGS: A tiny 2mm nodule with surrounding ground-glass haziness is seen in the posterior segment of the right upper lobe, abutting the major fissure. Series 4, Image 32/66. A subpleural fibrotic density with adjacent fibroatelectatic bands was seen in the left para-cardiac region. No definite consolidative lesions. No free or encysted pleural effusion. Heart size shows left ventricular hypertrophy with pacemaker leads in situ. A few millimetric calcified mediastinal and right hilar nodes were noted. The thoracic spine shows degenerative changes. There is no definite mass lesion in the chest wall. Scanned upper abdomen with few tiny calcific foci in splenic parenchyma, suggestive of old calcified granulomas. IMPRESSION: 1. A tiny 2mm nodule with surrounding ground-glass haziness in the posterior segment of the right upper lobe, abutting the major fissure. ( Series 4, Image 32/66 ). This could represent endobronchial infective focus. 2. A subpleural fibrotic density with adjacent fibroatelectatic bands in the left para-cardiac region. 3. Left ventricular hypertrophy with pacemaker leads in situ. 4. In comparison to the previous study dated 05/17/2014, there is interval development of small right upper lobe nodule, and fibrotic density in the left para-cardiac region with placement of pacemaker. Electronically Signed by: Russel Killian MD. (03/04/2023 22:56:47 [employer])
[2023-03-05 01:24] VITALS: BP 101/87; RESP 14; O2SAT 96
--- NOTE | 2023-03-05 08:40 | XRAY ---
Indication: Chest pain. Comparison: February 22, 2023. Portable chest is now clear. Heart not enlarged again with right pacemaker. No new/acute cardiopulmonary abnormalities.
== END 2023-03-05 01:24 | disposition home or self-care (01) ==
LOC: ED 17:59
DX: E80.6 Other disorders of bilirubin metabolism (principal); E87.6 Hypokalemia; R05.1 Acute cough; R07.9 Chest pain, unspecified; R10.9 Unspecified abdominal pain; I10 Essential (primary) hypertension; Z79.01 Long term (current) use of anticoagulants; Z79.84 Long term (current) use of oral hypoglycemic drugs; Z79.899 Other long term (current) drug therapy
CPT/HCPCS: 36000; 36415; 71046; 71260; 74177; 80053; 83690; 83880; 84484; 85025; 85379; 93005; 93041; 96360; 96374; 96375; 99284; J2270; A9270-GY

== ENCOUNTER 2023-07-20 12:31 | Emergency (ER) | payer MEDICARE ==
[2023-07-20 12:58] VITALS: TEMP 98.6
[2023-07-20 13:39] LABS: Absolute Neutrophil Ct (ANC) 4.64 x10^3/uL (1.4-6.9); BASOPHIL % 0.5 % (0.0-0.4); Basophil (Absolute #) 0.03 x10^3/uL (0-0.4); Eosinophil % 0.2 % (0.00-5.0); Eosinophil (Absolute #) 0.01 x10^3/uL (0-0.5); Hematocrit 39.5 % (35-47); IMMATURE GRAN # 0.02 x10^3u/L (0.00-0.03); IMMATURE GRAN % 0.4 % (0.00-0.4); Lymphocyte (Absolute #) 0.43 x10^3/uL (1.0-4.6); Lymphocytes % 7.6 % (24.0-44.0); Mean Cell Volume 88.6 fL (78-100); Mean Corpuscular Hemoglobin 29.1 pg (26-32); Mean Corpuscular Hgb Concent. 32.9 g/dL (32-36); Mean Platelet Volume 9.8 fL (7.5-11.0); Monocyte (Absolute #) 0.51 x10^3/uL (0.0-1.3); Neutrophil % 82.3 % (36.0-66.0); Platelet Count 165 x10^3/uL (150-450); Red Blood Count 4.46 x10^6/uL (4.1-5.4); Red Cell Distribution Width 14.2 % (11.5-14.0); White Blood Count 5.6 x10^3/uL (4.0-10.5)
--- NOTE | 2023-07-20 13:57 | XRAY ---
Indication: Dizziness 3 days. Multiple contiguous axial images obtained through the head without contrast. Comparison: October 08, 2020 Normal appearing brain parenchyma, ventricles, and bony calvarium for patient's age. New moderate mucosal thickening right ethmoid and less degree left maxillary sinuses. Remaining visualized paranasal sinuses and mastoid air cells are clear. Impression: New mild paranasal sinus disease. Remaining CT head without contrast exam continues to be normal.
[2023-07-20 14:07] LABS: ALBUMIN 4.3 g/dL (3.5-5.0); ALKALINE PHOSPHATASE 63 U/L (38-126); ANION GAP 12.7 MEQ/L (5-15); BLOOD UREA NITROGEN 25 mg/dL (7-17); CHLORIDE 98 mmol/L (98-107); Calcium 9.9 mg/dL (8.4-10.2); Carbon Dioxide 28 mmol/L (22-30); Creatinine 1 1.09 mg/dL (0.52-1.04); ETHYL ALCOHOL < 10 mg/dL (0-10); Glucose 133 mg/dL (74-106); MAGNESIUM 1.6 mg/dL (1.6-2.3); Potassium 3.6 mmol/L (3.5-5.1); SGOT/AST 20 U/L (14-36); SGPT/ALT 16 U/L (0-35); SODIUM 135 mmol/L (137-145); Total Protein 7.7 g/dL (6.3-8.2)
--- NOTE | 2023-07-20 14:21 | ERPHSYRPT ---
- History of Present Illness Time Seen by Provider: 07/20/23 12:50 Source: patient, family, old records Exam Limitations: no limitations Patient Subjective Stated Complaint: C/O dizziness since Sunday Triage Nursing Assessment: Patient brought back to ER in a W/C. She was able to transfer self from chair to bed. She is alert and oriented. JOHNSON WNL. No SOB. Skin tone normal. Physician History: This is an obese 73-year-old white female patient who has had dizziness symptoms for the last 3 days. She denies head injury. There is been no visual changes. Patient denies chest pain. She denies headache. She denies nausea vomiting and diarrhea. 2 months ago, the patient the same symptoms and was found to have low magnesium and was dehydrated. On 03/04/2023, patient underwent a twelve-lead EKG which was normal sinus rhythm, left axis deviation normal intervals no acute ischemic changes. Patient has a pacemaker in place at this time. Patient has a history of hyperlipidemia, hypertension, anxiety, diabetes and is on Eliquis. Timing/Duration: day(s) (3) Severity: mild Deficits: no difficulties Baseline/Normal Cognition: alert oriented x 3 Current Cognition: alert oriented x 3 Baseline Gait: walks w/o assistance Associated Symptoms: other Allergies/Adverse Reactions: rivaroxaban [From Xarelto] Allergy (Verified 07/20/23 12:43) semaglutide [From Ozempic] Allergy (Verified 07/20/23 12:43) Home Medications: Rosuvastatin Calcium [Crestor] 10 mg PO HS 10/09/12 [History] Glyburide 2.5 mg PO DAILY 10/20/15 [History] ALPRAZolam [Alprazolam] 0.25 mg PO HS 03/20/18 [History] Apixaban [Eliquis 2.5 mg Tablet] 2.5 mg PO BID 07/07/19 [History] Metformin HCl 850 mg [Glucophage 850 MG] 850 mg PO BID 03/04/23 [History] Bumetanide 1 tab PO DAILY 07/20/23 [History] Chlorthalidone 12.5 mg PO DAILY 07/20/23 [History] Metoprolol Tartrate 25 mg [Lopressor 25MG Tab] 1 tab PO BID 07/20/23 [History] Hx Tetanus, Diphtheria Vaccination/Date Given: Yes Hx Influenza Vaccination/Date Given: No Hx Pneumococcal Vaccination/Date Given: Yes Immunizations Up to Date: Yes Travel Risk - International Travel Have you traveled outside of the country in past 3 weeks: No (Dizziness) - Coronavirus Screening Are you exhibiting any of the following symptoms?: No Close contact with a COVID-19 positive Pt in past 14-21 Days: No - Vaccine Status Have you recieved a Covid-19 vaccination: No X Ray Technician: Unknown - Vaccination Dates Date of 2cond Vaccination (if applicable): ? Dates if Unknown: n/a - Review of Systems Constitutional: No Symptoms Eyes: No Symptoms Ears, Nose, & Throat: No Symptoms Respiratory: No Symptoms Cardiac: No Symptoms Abdominal/Gastrointestinal: No Symptoms Genitourinary Symptoms: No Symptoms Musculoskeletal: No Symptoms Skin: No Symptoms Neurological: Dizziness Psychological: No Symptoms Endocrine: No Symptoms Hematologic/Lymphatic: No Symptoms Immunological/Allergic: No Symptoms All Other Systems: Reviewed and Negative - Past Medical History Pertinent Past Medical History: Yes Neurological History: No Pertinent History ENT History: Cataracts Cardiac History: High Cholesterol, Hypertension Respiratory History: Pneumonia Endocrine Medical History: Diabetes Type II Musculoskeletal History: No Pertinent History GI Medical History: GERD, Gallbladder Disease, Liver Cancer History: No Pertinent History Psycho-Social History: Anxiety Female Reproductive Disorders: Uterine Cancer Other Medical History: hx of liver cancer, non hodgkins lymphoma of liver, bone marrow and uterine cancer. Cardiology: Dr. Medina and Dr. Love Leyva - Past Surgical History Past Surgical History: Yes Neuro Surgical History: No Pertinent History Cardiac: Cardiac Catheterization, Pacemaker Respiratory: No Pertinent History Gastrointestinal: Appendectomy, Cholecystectomy Genitourinary: No Pertinent History Musculoskeletal: No Pertinent History Female Surgical History: Hysterectomy, Section Other Surgical History: liver biopsy - Social History Smoking Status: Never smoker Exposure to second hand smoke: No Drug Use: none Patient Lives Alone: Yes - Nursing Vital Signs Nursing Vital Signs: Initial Vital Signs Pulse Rate 70 07/20/23 12:40 Respiratory Rate 14 07/20/23 12:40 Blood Pressure 154/93 07/20/23 12:40 O2 Sat by Pulse Oximetry 97 07/20/23 12:40 Pain Scale Pain Intensity 0 - Laura Coma Scale Best Eye Response ([place]): (4) open spontaneously Best Verbal Response (Laura): (5) oriented Best Motor Response (Laura): (6) obeys commands [place] Total: 15 - Physical Exam General Appearance: no apparent distress, alert, anxiety, obese Eye Exam: bilateral eye: normal inspection, PERRL, EOMI Ears, Nose, Throat Exam: normal ENT inspection, moist mucous membranes Neck Exam: normal inspection, non-tender, supple, full range of motion Respiratory: normal breath sounds, lungs clear, airway intact, No chest tenderness, No respiratory distress Cardiovascular: regular rate/rhythm, normal heart sounds, normal peripheral pulses Gastrointestinal: soft, normal bowel sounds, No tenderness Pelvic Exam: not done, deferred, normal external exam Rectal Exam: not done Back Exam: normal inspection, normal range of motion, No CVA tenderness Extremity Exam: normal inspection, pelvis stable, No normal range of motion Mental Status: alert, oriented x 3, cooperative under baster Exam: normal hearing, normal speech, PERRL, tongue midline Coordination/Gait: normal gait, normal cerebellar function Motor/Sensory: no motor deficit, no sensory deficit, no pronator drift Skin Exam: normal color, warm, dry SpO2 Interpretation: normal SpO2: 98 O2 Delivery: Room Air - Course Nursing assessment & vital signs reviewed: Yes EKG Interpreted by Me: RATE (70), Left Bundle Branch Block, Other (AV disassociation. Patient has a pacemaker in place. There is no evidence of any acute ischemic changes on today's twelve-lead EKG.) Ordered Tests: Active Orders 24 hr Category Date Time Status Financial Examiner STAT Care 07/20/23 13:22 Active EKG-ER Only STAT Care 07/20/23 13:21 Active IV Insertion STAT Care 07/20/23 13:21 Active Pulse Oximetry (ED) STAT Care 07/20/23 13:21 Active HEAD WITHOUT CONTRAST [CT] Stat Exams 07/20/23 13:22 Completed CBC W DIFF Stat Lab 07/20/23 13:38 Completed CMP Stat Lab 07/20/23 13:38 Completed ETHYL ALCOHOL Stat Lab 07/20/23 13:38 Completed MAGNESIUM Stat Lab 07/20/23 13:38 Completed TROPONIN Q4H Lab 07/20/23 13:38 Completed TROPONIN Q4H Lab 07/20/23 17:30 Ordered TROPONIN Q4H Lab 07/20/23 21:30 Ordered UA W/RFX UR CULTURE Stat Lab 01/05/24 14:11 Completed Lab/Rad Data: Laboratory Result Diagrams 07/20/23 13:38 07/20/23 13:38 Laboratory Results 07/20/23 07/20/23 07/20/23 Range/Units 14:11 13:38 13:38 WBC (4.0-10.5) x10^3/uL RBC (4.1-5.4) x10^6/uL Hgb (12.0-16.0) g/dL Hct (35-47) % MCV (78-100) fL MCH (26-32) pg MCHC (32-36) g/dL RDW (11.5-14.0) % Plt Count (150-450) x10^3/uL MPV (7.5-11.0) fL Gran % (36.0-66.0) % Immature Gran % (Auto) (0.00-0.4) % Nucleat RBC Rel Count (0.00-0.1) % Eos # (Auto) (0-0.5) x10^3/uL Immature Gran # (Auto) (0.00-0.03) x10^3u/L Absolute Lymphs (auto) (1.0-4.6) x10^3/uL Absolute Monos (auto) (0.0-1.3) x10^3/uL Absolute Nucleated RBC (0.00-0.01) x10^3u/L Lymphocytes % (24.0-44.0) % Monocytes % (0.0-12.0) % Eosinophils % (0.00-5.0) % Basophils % (0.0-0.4) % Absolute Granulocytes (1.4-6.9) x10^3/uL Basophils # (0-0.4) x10^3/uL Sodium 135 L (137-145) mmol/L Potassium 3.6 (3.5-5.1) mmol/L Chloride 98 (98-107) mmol/L Carbon Dioxide 28 (22-30) mmol/L Anion Gap 12.7 (5-15) MEQ/L BUN 25 H (7-17) mg/dL Creatinine 1.09 H (0.52-1.04) mg/dL Estimated GFR 53.0 ML/MIN Glucose 133 H (74-106) mg/dL Calcium 9.9 (8.4-10.2) mg/dL Magnesium 1.6 (1.6-2.3) mg/dL Total Bilirubin 1.70 H (0.2-1.3) mg/dL AST 20 (14-36) U/L ALT 16 (0-35) U/L Alkaline Phosphatase 63 (38-126) U/L Troponin I < 0.012 (0.000-0.034) ng/mL Serum Total Protein 7.7 (6.3-8.2) g/dL Albumin 4.3 (3.5-5.0) g/dL Urine Color Yellow (Yellow) Urine Appearance Clear (Clear) Urine pH 5.0 (4.6-8.0) Ur Specific [place] 1.010 (1.005-1.030) Urine Protein Negative (Negative) Urine Glucose (UA) Negative (Negative) mg/dL Urine Ketones Negative (Negative) Urine Blood Negative (Negative) Urine Nitrite Negative (Negative) Urine Bilirubin Negative (Negative) Urine Urobilinogen 0.2 (0.2) mg/dL Ur Leukocyte Esterase Trace A (Negative) U Hyaline Cast (Auto) NONE SEEN (0-2) /LPF Urine Microscopic RBC 0-2 (0-5) /HPF Urine Microscopic WBC 0-2 (0-5) /HPF Ur Epithelial Cells None Seen (None Seen) /HPF Urine Bacteria None Seen (None Seen) /HPF Urine Culture Reflexed NO (NO) Ethyl Alcohol < 10 (0-10) mg/dL Slides for Path Review 07/20/23 Range/Units 13:38 WBC 5.6 (4.0-10.5) x10^3/uL RBC 4.46 (4.1-5.4) x10^6/uL Hgb 13.0 (12.0-16.0) g/dL Hct 39.5 (35-47) % MCV 88.6 (78-100) fL MCH 29.1 (26-32) pg MCHC 32.9 (32-36) g/dL RDW 14.2 H (11.5-14.0) % Plt Count 165 (150-450) x10^3/uL MPV 9.8 (7.5-11.0) fL Gran % 82.3 H (36.0-66.0) % Immature Gran % (Auto) 0.4 (0.00-0.4) % Nucleat RBC Rel Count 0.0 (0.00-0.1) % Eos # (Auto) 0.01 (0-0.5) x10^3/uL Immature Gran # (Auto) 0.02 (0.00-0.03) x10^3u/L Absolute Lymphs (auto) 0.43 L (1.0-4.6) x10^3/uL Absolute Monos (auto) 0.51 (0.0-1.3) x10^3/uL Absolute Nucleated RBC 0.00 (0.00-0.01) x10^3u/L Lymphocytes % 7.6 L (24.0-44.0) % Monocytes % 9.0 (0.0-12.0) % Eosinophils % 0.2 (0.00-5.0) % Basophils % 0.5 (0.0-0.4) % Absolute Granulocytes 4.64 (1.4-6.9) x10^3/uL Basophils # 0.03 (0-0.4) x10^3/uL Sodium (137-145) mmol/L Potassium (3.5-5.1) mmol/L Chloride (98-107) mmol/L Carbon Dioxide (22-30) mmol/L Anion Gap (5-15) MEQ/L BUN (7-17) mg/dL Creatinine (0.52-1.04) mg/dL Estimated GFR ML/MIN Glucose (74-106) mg/dL Calcium (8.4-10.2) mg/dL Magnesium (1.6-2.3) mg/dL Total Bilirubin (0.2-1.3) mg/dL AST (14-36) U/L ALT (0-35) U/L Alkaline Phosphatase (38-126) U/L Troponin I (0.000-0.034) ng/mL Serum Total Protein (6.3-8.2) g/dL Albumin (3.5-5.0) g/dL Urine Color (Yellow) Urine Appearance (Clear) Urine pH (4.6-8.0) Ur Specific [place] (1.005-1.030) Urine Protein (Negative) Urine Glucose (UA) (Negative) mg/dL Urine Ketones (Negative) Urine Blood (Negative) Urine Nitrite (Negative) Urine Bilirubin (Negative) Urine Urobilinogen (0.2) mg/dL Ur Leukocyte Esterase (Negative) U Hyaline Cast (Auto) (0-2) /LPF Urine Microscopic RBC (0-5) /HPF Urine Microscopic WBC (0-5) /HPF Ur Epithelial Cells (None Seen) /HPF Urine Bacteria (None Seen) /HPF Urine Culture Reflexed (NO) Ethyl Alcohol (0-10) mg/dL Slides for Path Review YES - Progress Progress: improved, re-examined Progress Note: 07/20/23 14:19 This patient's medical issue is 1 of moderate complexity. Level complex in the workup performed based on review the patient's past medical history, review of the patient's medication list, review of patient drug allergy list, history present illness and physical findings on examination. workup for this patient includes twelve-lead EKG, troponin level, urinalysis, magnesium level CBC, CMP, CT scan of the head without contrast. Patient is refusing intravenous line plac ement at this time. 07/20/23 14:21 07/20/23 15:32 Reviewed and interpreted the patient's laboratory data results. This patient does not have any acute, emergent findings on her laboratory data results. CT scan of the head without contrast was interpreted by the radiologist and I reviewed the impression. There is new mild paranasal sinus disease. The remainder of the CT scan of the head without contrast is within normal limits. Counseled pt/family regarding: lab results, diagnosis, need for follow-up, rad results Medical Desision Making - Independent Historian Additional History obtained from: Family - Diagnostic Testing Diagnostic test were ordered, analyzed, and reviewed by me: Yes Radiological Interpretation: Reviewed by me, Teleradiologist Report - Risk of complications The pt has a mod risk of morbidity or mortality based on: Need for prescription drug management - Departure Departure Disposition: Home Clinical Impression: Sinusitis, Dizziness Condition: Stable Critical Care Time: No Referrals: KAYLA MEJIA [Primary Care Provider] - Follow up/PCP as directed Additional Instructions: Drink plenty of fluids. Take your medications as prescribed. Call your primary care provider today to make arranges for follow-up appointment the next 3 to 5 days. Prescriptions: Amoxicillin 500 mg Cap [Amoxil 500 mg] 500 mg PO TID #30 cap Meclizine HCl 25 mg [Antivert 25 mg] 25 mg PO Q8H PRN #10 tablet PRN Reason: Dizziness
[2023-07-20 14:36] LABS: Appearance Clear (Clear); Bacteria None Seen /HPF (None Seen); Bilirubin Negative (Negative); Blood Negative (Negative); Epithelial Cells None Seen /HPF (None Seen); Glucose, Urine Negative (Negative); Hyaline Casts NONE SEEN /LPF (0-2); Ketones Negative (Negative); Leukocyte Esterase Trace (Negative); Nitrite Negative (Negative); Protein,Urine Dip Negative (Negative); RBC 0-2 /HPF (0-5); Urobilinogen 0.2 mg/dL (0.2); WBC 0-2 /HPF (0-5)
[2023-07-20 14:41] LABS: Slide Review 1 YES
[2023-07-20 14:42] LABS: ADD URINE CULTURE? NO (NO)
[2023-07-20 15:17] VITALS: BP 107/73; PULSE 70; RESP 15
[2023-07-20 15:35] VITALS: O2SAT 98
== END 2023-07-20 16:07 | disposition home or self-care (01) ==
LOC: ED 12:31
DX: R42 Dizziness and giddiness (principal); J32.9 Chronic sinusitis, unspecified; E78.5 Hyperlipidemia, unspecified; I10 Essential (primary) hypertension; E11.9 Type 2 diabetes mellitus without complications; Z79.01 Long term (current) use of anticoagulants; Z79.84 Long term (current) use of oral hypoglycemic drugs; Z79.899 Other long term (current) drug therapy
CPT/HCPCS: 36415; 70450; 80053; 81001; 82077; 83735; 84484; 85025; 93005; 93041; 94760; 99284

== ENCOUNTER 2024-09-21 14:43 | Emergency (ER) | payer MEDICARE ==
[2024-09-21 15:06] VITALS: TEMP 98
--- NOTE | 2024-09-21 15:17 | ERPHSYRPT ---
- History of Present Illness Source: patient Exam Limitations: no limitations Patient Subjective Stated Complaint: C/O generalized weakness following "a sickness" for the past 13 days. Describes the illness as N/V, fever, cough Triage Nursing Assessment: Patient ambulated back to ER. She is alert and oriented. Dry, non-productive cough present. Clear nasal drainage present. No SOB. Skin tone normal. JOHNSON WNL. Physician History: Patient's had generalized weakness and fatigue. She is also had a cough and nausea and vomiting. She does not have abdominal pain or chest pain. She is not dyspneic. She does not have any urinary symptoms. She has no dysuria or flank pain. She says that she is still urinating. She does think that she may be dehydrated because she has had decreased p.o. intake.Symptoms been going on for about a week and a half Severity: moderate Allergies/Adverse Reactions: rivaroxaban [From Xarelto] Allergy (Verified 09/21/24 15:00) semaglutide [From Ozempic] Allergy (Verified 09/21/24 15:00) Home Medications: Rosuvastatin Calcium [Crestor] 10 mg PO HS 10/09/12 [History] Apixaban [Eliquis 2.5 mg Tablet] 5 mg PO BID 07/07/19 [History] Metformin HCl 850 mg [Glucophage 850 MG] 850 mg PO BID 03/04/23 [History] Chlorthalidone 12.5 mg PO DAILY 07/20/23 [History] Metoprolol Tartrate 25 mg [Lopressor 25MG Tab] 25 mg PO DAILY 07/20/23 [History] Glimepiride 2 mg [Amaryl 2 MG] 2 mg PO BID 09/21/24 [History] Hydrocodone/Acetaminophen [Hydrocodone-Acetamin 7.5-325] 1 tab PO Q6-8HPRN PRN 09/21/24 [History] Hx Tetanus, Diphtheria Vaccination/Date Given: Yes Hx Influenza Vaccination/Date Given: No Hx Pneumococcal Vaccination/Date Given: Yes Immunizations Up to Date: Yes Travel Risk - International Travel Have you traveled outside of the country in past 3 weeks: No - Emerging Infectious Disease Are you exhibiting symptoms associated with any current EIDs: Yes Symptoms: Cough: New Onset, Fever, Shortness of Breath - Review of Systems Constitutional: Fatigue, Malaise Eyes: No Symptoms Respiratory: Cough, No Dyspnea, No Dyspnea on Exertion (BIRCH) Cardiac: No Symptoms, No Chest Pain Abdominal/Gastrointestinal: No Symptoms, No Abdominal Pain All Other Systems: Reviewed and Negative - Past Medical History Pertinent Past Medical History: Yes Neurological History: No Pertinent History ENT History: Cataracts Cardiac History: High Cholesterol, Hypertension Respiratory History: Pneumonia Endocrine Medical History: Diabetes Type II Musculoskeletal History: No Pertinent History GI Medical History: GERD, Gallbladder Disease, Liver Cancer History: No Pertinent History Psycho-Social History: Anxiety Female Reproductive Disorders: Uterine Cancer Other Medical History: hx of liver cancer, non hodgkins lymphoma of liver, bone marrow and uterine cancer., Cardiology: Dr. Medina and Dr. Love Leyva ([facility]) - Past Surgical History Past Surgical History: Yes Neuro Surgical History: No Pertinent History Cardiac: Cardiac Catheterization, Pacemaker Respiratory: No Pertinent History Gastrointestinal: Appendectomy, Cholecystectomy Genitourinary: No Pertinent History Musculoskeletal: No Pertinent History Female Surgical History: Hysterectomy, Section Other Surgical History: liver biopsy - Social History Smoking Status: Never smoker Exposure to second hand smoke: No Drug Use: none - Social Determinants of Health Will the patient participate in the screening: Yes Do you worry about a steady place to live?: No Do you have any problems with any of the following?: No known problems In the past 12 months,have you had to go without utilities?: No Transportation Issues: No Has anyone in your support network made you feel unsafe?: No Have you or anyone in your house had to go w/o enough food: No - Nursing Vital Signs Nursing Vital Signs: Initial Vital Signs Pulse Rate 70 09/21/24 15:00 Respiratory Rate 22 09/21/24 15:00 Blood Pressure 126/74 09/21/24 15:00 O2 Sat by Pulse Oximetry 96 09/21/24 15:00 Pain Scale Pain Intensity 0 - Physical Exam General Appearance: no apparent distress Neck Exam: normal inspection, non-tender Respiratory Exam: normal breath sounds, lungs clear, No chest tenderness Cardiovascular Exam: regular rate/rhythm, normal heart sounds Gastrointestinal/Abdomen Exam: soft, normal bowel sounds, No tenderness Extremity Exam: normal inspection, normal range of motion Neurologic Exam: alert, oriented x 3, cooperative Skin Exam: normal color SpO2: 97 - Course Nursing assessment & vital signs reviewed: Yes EKG Interpreted by Me: Other (The EKG was interpreted by me. It has been started junctional rhythm. Right bundle branch block and some LVH. It is unchanged from her last EKG which was done on 07/20/2023) Ordered Tests: Active Orders 24 hr Category Date Time Status EKG-ER Only STAT Care 09/21/24 15:17 Active CHEST 1 VIEW (PORTABLE) Stat Exams 09/21/24 15:17 Taken CBC W DIFF Stat Lab 09/21/24 15:56 Completed CMP Stat Lab 09/21/24 15:56 Completed CULTURE,URINE Stat Lab 09/21/24 14:55 Received UA W/RFX UR CULTURE Stat Lab 09/21/24 14:55 Completed Medication Summary Generic Name Dose Route Start Last Admin Trade Name Freq PRN Reason Stop Dose Admin Guaifenesin/Dextromethorphan 5 ml 09/21/24 16:41 09/21/24 16:57 Guaifenesin/D-Methorphan Hb 118 Ml Syrup PO 10/21/24 16:40 5 ml Q4H PRN PRN Administration COUGH Lab/Rad Data: Laboratory Result Diagrams 09/21/24 15:56 09/21/24 15:56 Laboratory Results 09/21/24 09/21/24 09/21/24 Range/Units 15:56 15:56 15:17 WBC 5.0 (3.98-10.04) x10^3/uL RBC 4.42 (3.93-5.22) x10^6/uL Hgb 12.1 (11.2-15.7) g/dL Hct 36.2 (34.1-44.9) % MCV 81.9 (79.4-94.8) fL MCH 27.4 (25.6-32.2) pg MCHC 33.4 (32.2-35.5) g/dL RDW 12.8 (11.7-14.4) % Plt Count 194 (182-369) x10^3/uL MPV 10.5 (9.4-12.3) fL Gran % 75.7 H (34.0-71.1) % Immature Gran % (Auto) 0.0 L (0.001-0.429) % Nucleat RBC Rel Count 0.0 (0.00-0.2) % Eos # (Auto) 0.08 (0.04-0.36) x10^3/uL Immature Gran # (Auto) 0.00 L (0.001-0.031) x10^3u/L Absolute Lymphs (auto) 0.76 L (1.18-3.74) x10^3/uL Absolute Monos (auto) 0.34 (0.24-0.86) x10^3/uL Absolute Nucleated RBC 0.00 (0.00-0.012) x10^3u/L Lymphocytes % 15.4 L (19.3-51.7) % Monocytes % 6.9 (4.7-12.5) % Eosinophils % 1.6 (0.7-5.8) % Basophils % 0.4 (0.1-1.2) % Absolute Granulocytes 3.75 (1.56-6.13) x10^3/uL Basophils # 0.02 (0.01-0.08) x10^3/uL Sodium 139 (135-145) mmol/L Potassium 3.9 (3.5-5.1) mmol/L Chloride 100 (98-107) mmol/L Carbon Dioxide 27 (22-30) mmol/L Anion Gap 15.4 H (5-15) MEQ/L BUN 19 H (7-17) mg/dL Creatinine 1.03 (0.52-1.04) mg/dL Estimated GFR 56.4 ML/MIN Glucose 160 H (74-106) mg/dL Calcium 9.7 (8.4-10.2) mg/dL Total Bilirubin 1.00 (0.2-1.3) mg/dL AST 22 (14-36) U/L ALT 16 (0-35) U/L Alkaline Phosphatase 54 (38-126) U/L Serum Total Protein 6.9 (6.3-8.2) g/dL Albumin 4.1 (3.5-5.0) g/dL Urine Color (Yellow) Urine Appearance (Clear) Urine pH (4.6-8.0) Ur Specific [place] (1.005-1.030) Urine Protein (Negative) Urine Glucose (UA) (Negative) mg/dL Urine Ketones (Negative) Urine Blood (Negative) Urine Nitrite (Negative) Urine Bilirubin (Negative) Urine Urobilinogen (0.2) mg/dL Ur Leukocyte Esterase (Negative) U Hyaline Cast (Auto) (0-2) /LPF Urine Microscopic RBC (0-5) /HPF Urine Microscopic WBC (0-5) /HPF Ur Epithelial Cells (None Seen) /HPF Urine Bacteria (None Seen) /HPF Urine Culture Reflexed (NO) Influenza Type A Ag NEGATIVE (NEGATIVE) Influenza Type B Ag NEGATIVE (NEGATIVE) RSV (PCR) NEGATIVE (NEGATIVE) SARS-CoV-2 (PCR) NEGATIVE (NEGATIVE) 09/21/24 Range/Units 14:55 WBC (3.98-10.04) x10^3/uL RBC (3.93-5.22) x10^6/uL Hgb (11.2-15.7) g/dL Hct (34.1-44.9) % MCV (79.4-94.8) fL MCH (25.6-32.2) pg MCHC (32.2-35.5) g/dL RDW (11.7-14.4) % Plt Count (182-369) x10^3/uL MPV (9.4-12.3) fL Gran % (34.0-71.1) % Immature Gran % (Auto) (0.001-0.429) % Nucleat RBC Rel Count (0.00-0.2) % Eos # (Auto) (0.04-0.36) x10^3/uL Immature Gran # (Auto) (0.001-0.031) x10^3u/L Absolute Lymphs (auto) (1.18-3.74) x10^3/uL Absolute Monos (auto) (0.24-0.86) x10^3/uL Absolute Nucleated RBC (0.00-0.012) x10^3u/L Lymphocytes % (19.3-51.7) % Monocytes % (4.7-12.5) % Eosinophils % (0.7-5.8) % Basophils % (0.1-1.2) % Absolute Granulocytes (1.56-6.13) x10^3/uL Basophils # (0.01-0.08) x10^3/uL Sodium (135-145) mmol/L Potassium (3.5-5.1) mmol/L Chloride (98-107) mmol/L Carbon Dioxide (22-30) mmol/L Anion Gap (5-15) MEQ/L BUN (7-17) mg/dL Creatinine (0.52-1.04) mg/dL Estimated GFR ML/MIN Glucose (74-106) mg/dL Calcium (8.4-10.2) mg/dL Total Bilirubin (0.2-1.3) mg/dL AST (14-36) U/L ALT (0-35) U/L Alkaline Phosphatase (38-126) U/L Serum Total Protein (6.3-8.2) g/dL Albumin (3.5-5.0) g/dL Urine Color Yellow (Yellow) Urine Appearance Clear (Clear) Urine pH 6.0 (4.6-8.0) Ur Specific [place] 1.015 (1.005-1.030) Urine Protein Negative (Negative) Urine Glucose (UA) Negative (Negative) mg/dL Urine Ketones Negative (Negative) Urine Blood Negative (Negative) Urine Nitrite Negative (Negative) Urine Bilirubin Negative (Negative) Urine Urobilinogen 0.2 (0.2) mg/dL Ur Leukocyte Esterase Moderate A (Negative) U Hyaline Cast (Auto) NONE SEEN (0-2) /LPF Urine Microscopic RBC 0-2 (0-5) /HPF Urine Microscopic WBC 11-20 A (0-5) /HPF Ur Epithelial Cells None Seen (None Seen) /HPF Urine Bacteria None Seen (None Seen) /HPF Urine Culture Reflexed YES (NO) Influenza Type A Ag (NEGATIVE) Influenza Type B Ag (NEGATIVE) RSV (PCR) (NEGATIVE) SARS-CoV-2 (PCR) (NEGATIVE) - Progress Progress: unchanged Progress Note: Patient stable throughout stay.On the differential was COVID flu RSV pneumonia and bronchitis. X-ray was clear. COVID flu and RSV were all negative. Think she has bronchitis. Is been going on for 2 weeks. I will go ahead and start her on a Z-Lionel.We will discharge her home in stable condition she is to follow- up with her primary care doctor. 09/21/24 17:10 - Departure Departure Disposition: Home Clinical Impression: Acute bronchitis Condition: Stable Critical Care Time: No Referrals: KAYLA MEJIA [Primary Care Provider] - Follow up/PCP as directed Instructions: Pneumonia in adults - Discharge instructions
[2024-09-21 15:24] LABS: Appearance Clear (Clear); Bacteria None Seen /HPF (None Seen); Bilirubin Negative (Negative); Blood Negative (Negative); Epithelial Cells None Seen /HPF (None Seen); Glucose, Urine Negative (Negative); Hyaline Casts NONE SEEN /LPF (0-2); Ketones Negative (Negative); Leukocyte Esterase Moderate (Negative); Nitrite Negative (Negative); Protein,Urine Dip Negative (Negative); RBC 0-2 /HPF (0-5); Specific Gravity 1.015 (1.005-1.030); Urobilinogen 0.2 mg/dL (0.2)
[2024-09-21 15:56] LABS: Absolute Neutrophil Ct (ANC) 3.75 x10^3/uL (1.56-6.13); BASOPHIL % 0.4 % (0.1-1.2); Basophil (Absolute #) 0.02 x10^3/uL (0.01-0.08); Eosinophil % 1.6 % (0.7-5.8); Eosinophil (Absolute #) 0.08 x10^3/uL (0.04-0.36); Hematocrit 36.2 % (34.1-44.9); Hemoglobin 12.1 g/dL (11.2-15.7); Lymphocyte (Absolute #) 0.76 x10^3/uL (1.18-3.74); Lymphocytes % 15.4 % (19.3-51.7); Mean Cell Volume 81.9 fL (79.4-94.8); Mean Corpuscular Hemoglobin 27.4 pg (25.6-32.2); Mean Corpuscular Hgb Concent. 33.4 g/dL (32.2-35.5); Mean Platelet Volume 10.5 fL (9.4-12.3); Monocyte (Absolute #) 0.34 x10^3/uL (0.24-0.86); Monocytes % 6.9 % (4.7-12.5); Neutrophil % 75.7 % (34.0-71.1); Platelet Count 194 x10^3/uL (182-369); Red Blood Count 4.42 x10^6/uL (3.93-5.22); Red Cell Distribution Width 12.8 % (11.7-14.4)
[2024-09-21 16:13] LABS: ALBUMIN 4.1 g/dL (3.5-5.0); ANION GAP 15.4 MEQ/L (5-15); Calcium 9.7 mg/dL (8.4-10.2); Creatinine 1 1.03 mg/dL (0.52-1.04); EST GLOMERULAR FILTRATION RATE 56.4 ML/MIN; Potassium 3.9 mmol/L (3.5-5.1); Total Protein 6.9 g/dL (6.3-8.2)
[2024-09-21 16:33] LABS: INFLUENZA A NEGATIVE (NEGATIVE); INFLUENZA B NEGATIVE (NEGATIVE); RESPIRATORY SYNCTIAL VIRUS NEGATIVE (NEGATIVE); SARS-CoV-2 Xpert Express NEGATIVE (NEGATIVE)
[2024-09-21] MEDS ORDERED: Robitussin-Dm Syrup ONE (16:54)
[2024-09-21] MEDS: Robitussin-Dm Syrup PO PRN (16:57)
[2024-09-21] MEDS ORDERED: Zithromax 250 MG TABLET ONE ×2 (17:20→17:23)
[2024-09-21] MEDS: Zithromax 250 MG TABLET PO ONE (17:22)
[2024-09-21 17:49] VITALS: BP 97/59; PULSE 74; RESP 17; O2SAT 94
--- NOTE | 2024-09-21 20:00 | XRAY ---
Indication: Cough. Comparison: March 04, 2023 Portable chest remains inflated and clear. Heart not enlarged again with right pacemaker. Bony thorax intact again with osteopenia and degenerative changes. No new/acute findings.
== END 2024-09-21 17:50 | disposition home or self-care (01) ==
LOC: ED 14:43
DX: J20.9 Acute bronchitis, unspecified (principal); R53.1 Weakness; R53.83 Other fatigue; R05.9 Cough, unspecified; R11.2 Nausea with vomiting, unspecified; E78.5 Hyperlipidemia, unspecified; I10 Essential (primary) hypertension; E11.9 Type 2 diabetes mellitus without complications; Z79.01 Long term (current) use of anticoagulants; Z79.84 Long term (current) use of oral hypoglycemic drugs; Z79.891 Long term (current) use of opiate analgesic; Z79.899 Other long term (current) drug therapy
CPT/HCPCS: 0241U; 36415; 71045; 80053; 81001; 85025; 87086; 93005; 99285; 99284; A9270-GY

== ENCOUNTER 2024-11-18 13:36 | Emergency (ER) | payer MEDICARE ==
[2024-11-18 13:59] VITALS: TEMP 97.3
[2024-11-18 14:24] LABS: Hematocrit 30.9 % (34.1-44.9); Mean Cell Volume 84.7 fL (79.4-94.8); Mean Corpuscular Hemoglobin 27.4 pg (25.6-32.2); Mean Corpuscular Hgb Concent. 32.4 g/dL (32.2-35.5); Mean Platelet Volume 11.3 fL (9.4-12.3); Platelet Count 68 x10^3/uL (182-369); Red Blood Count 3.65 x10^6/uL (3.93-5.22); Red Cell Distribution Width 16.8 % (11.7-14.4)
--- NOTE | 2024-11-18 14:24 | ERPHSYRPT ---
- History of Present Illness Time Seen by Provider: 11/18/24 14:19 Source: patient Exam Limitations: no limitations Patient Subjective Stated Complaint: pt states that she is having a headache, her equilibrium is off, and she thinks she has a uti Triage Nursing Assessment: pt ambulated into the er with ease; pt is axo x4; c/o headache; pt states 8/10 pain to head; strong nawaf manager resource and pushes; pupils 3 mm and PERRL; skin PDW; vitals wnl; no respiratory distress present Physician History: Patient is a 74-year-old female presents to our ED for evaluation of a headache body aches cold chills and disorientation. Patient on Eliquis for A-fib. No fever no neck pain no photophobia. No meningeal signs. Symptoms started 3 days ago. Headache rated 8 out of 10. No trauma. No numbness tingling or weakness. No nausea vomiting or diaphoresis. No chest pain or shortness of breath. Symptoms are constant. Symptoms are moderate in intensity. No specific worsening or improving factors. Patient voices no other complaints or concerns at this time. Patient also concerned she may have a UTI because of urinary frequency and urgency. Patient reports that her production support engineer Dr. Love Leyva is currently scheduling her for a Watchman procedure Portions of this note were created with voice recognition technology. There may be grammatical, spelling, punctuation or sound alike errors Timing/Duration: day(s) Severity: moderate Modifying Factors: Improves With: nothing Associated Symptoms: denies symptoms Allergies/Adverse Reactions: rivaroxaban [From Xarelto] Allergy (Verified 11/18/24 13:49) semaglutide [From Ozempic] Allergy (Verified 11/18/24 13:49) Home Medications: Rosuvastatin Calcium [Crestor] 10 mg PO HS 10/09/12 [History] Apixaban [Eliquis 2.5 mg Tablet] 5 mg PO BID 07/07/19 [History] Metformin HCl 850 mg [Glucophage 850 MG] 850 mg PO BID 03/04/23 [History] Chlorthalidone 12.5 mg PO DAILY 07/20/23 [History] Metoprolol Tartrate 25 mg [Lopressor 25MG Tab] 25 mg PO DAILY 07/20/23 [History] Glimepiride 2 mg [Amaryl 2 MG] 2 mg PO BID 09/21/24 [History] ALPRAZolam [Alprazolam] 0.5 mg PO BID 11/18/24 [History] Celecoxib 200 mg PO BID 11/18/24 [History] Gabapentin 100 mg PO HS 11/18/24 [History] Hx Tetanus, Diphtheria Vaccination/Date Given: No Hx Influenza Vaccination/Date Given: No Hx Pneumococcal Vaccination/Date Given: Yes Travel Risk - International Travel Have you traveled outside of the country in past 3 weeks: No - Emerging Infectious Disease Are you exhibiting symptoms associated with any current EIDs: No Symptoms: Cough: New Onset, Fever, Shortness of Breath - Review of Systems Constitutional: No Symptoms, No Fever, No Chills Eyes: No Symptoms Ears, Nose, & Throat: No Symptoms Respiratory: No Symptoms, No Cough, No Dyspnea Cardiac: No Symptoms, No Chest Pain, No Edema, No Syncope Abdominal/Gastrointestinal: No Symptoms, No Abdominal Pain, No Nausea, No Vomiting, No Diarrhea Genitourinary Symptoms: No Symptoms, No Dysuria Musculoskeletal: No Symptoms, No Back Pain, No Neck Pain Skin: No Symptoms, No Rash Neurological: No Symptoms, No Dizziness, No Focal Weakness, No Sensory Changes Psychological: No Symptoms Endocrine: No Symptoms Hematologic/Lymphatic: No Symptoms Immunological/Allergic: No Symptoms All Other Systems: Reviewed and Negative - Past Medical History Pertinent Past Medical History: Yes Neurological History: No Pertinent History ENT History: Cataracts Cardiac History: Arrhythmia, High Cholesterol, Hypertension, Other Respiratory History: No Pertinent History Endocrine Medical History: Diabetes Type II, Other Musculoskeletal History: Osteoarthritis GI Medical History: GERD, Gallbladder Disease, Liver Cancer History: No Pertinent History Psycho-Social History: Anxiety Female Reproductive Disorders: Uterine Cancer Other Medical History: HX OF UTERINE CANCER (HYSTERECTOMY 1987), 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 SCHEDULED FOR WATCHMAN PROCEDURE SOMETINE IN NOVEMBER. - Past Surgical History Past Surgical History: Yes Neuro Surgical History: No Pertinent History Cardiac: Cardiac Catheterization, Pacemaker Respiratory: No Pertinent History Gastrointestinal: Appendectomy, Cholecystectomy Genitourinary: No Pertinent History Musculoskeletal: No Pertinent History Female Surgical History: Hysterectomy, Section Other Surgical History: liver biopsy - Social History Smoking Status: Never smoker Exposure to second hand smoke: No Drug Use: none - Social Determinants of Health Will the patient participate in the screening: Yes Do you worry about a steady place to live?: No Do you have any problems with any of the following?: No known problems In the past 12 months,have you had to go without utilities?: No Transportation Issues: No Has anyone in your support network made you feel unsafe?: No Have you or anyone in your house had to go w/o enough food: No - Nursing Vital Signs Nursing Vital Signs: Initial Vital Signs Temperature 97.3 F 11/18/24 13:49 Pulse Rate 74 11/18/24 13:49 Respiratory Rate 18 11/18/24 13:49 Blood Pressure 122/75 11/18/24 13:49 O2 Sat by Pulse Oximetry 97 11/18/24 13:49 Pain Scale Pain Intensity 4 - Physical Exam General Appearance: no apparent distress, alert Eye Exam: PERRL/EOMI, eyes nml inspection Ears, Nose, Throat Exam: normal ENT inspection, moist mucous membranes Neck Exam: normal inspection, full range of motion Respiratory Exam: normal breath sounds, lungs clear, airway intact, No respiratory distress Cardiovascular Exam: regular rate/rhythm, normal heart sounds, normal peripheral pulses Gastrointestinal/Abdomen Exam: soft, normal bowel sounds, No tenderness, No mass Back Exam: normal inspection, normal range of motion, No CVA tenderness, No vertebral tenderness Extremity Exam: normal inspection, normal range of motion, pelvis stable Neurologic Exam: alert, oriented x 3, cooperative, normal mood/affect, sensation nml, No motor deficits Skin Exam: normal color, warm, dry, No rash Lymphatic Exam: No adenopathy SpO2 Interpretation: normal SpO2: 99 O2 Delivery: Room Air - Course Nursing assessment & vital signs reviewed: Yes EKG Interpreted by Me: RATE (70 atrial paced rhythm), NORMAL AXIS, NORMAL INTERVALS, NORMAL QRS - CT Exams Abdomen/Pelvis CT Interpretation: Tele-radiologist Report (Fecal stasis, splenomegaly, left adrenal adenoma) Head CT Interpretation: Tele-radiologist Report (Continue nonacute senile brain) - Radiology Ultrasound Exam Gallbladder Ultrasound: tele radiology report (Cholecystectomy, no acute findings) Ordered Tests: Active Orders 24 hr Category Date Time Status Tool Analyst STAT Care 11/18/24 14:18 Completed EKG-ER Only STAT Care 11/18/24 14:17 Completed IV Insertion STAT Care 11/18/24 14:17 Completed Pulse Oximetry (ED) STAT Care 11/18/24 14:17 Completed ABDOMEN AND PELVIS W/0 CONTRAS [CT] Stat Exams 11/18/24 14:55 Completed GALLBLADDER [US] Stat Exams 11/18/24 14:55 Completed HEAD WITHOUT CONTRAST [CT] Stat Exams 11/18/24 14:16 Completed CBC W DIFF Stat Lab 11/18/24 14:10 Completed CMP Stat Lab 11/18/24 14:10 Completed CULTURE,URINE Stat Lab 11/18/24 14:17 Received ETHYL ALCOHOL Stat Lab 11/18/24 14:10 Completed LIPASE Stat Lab 11/18/24 14:10 Completed Lactic Acid Stat Lab 11/18/24 14:35 Completed Manual Differential NC Stat Lab 11/18/24 14:10 Completed NT PRO BNPII Stat Lab 11/18/24 14:10 Completed POCT GLUCOSE Stat Lab 11/18/24 15:58 Completed POCT GLUCOSE Stat Lab 11/18/24 16:21 Completed POCT GLUCOSE Stat Lab 11/18/24 17:02 Completed POCT GLUCOSE Stat Lab 11/18/24 17:05 Completed POCT GLUCOSE Stat Lab 11/18/24 17:27 Completed Pathologist Review Stat Lab 11/18/24 14:10 Completed TROPONIN Q4H Lab 11/18/24 14:10 Completed UA W/RFX UR CULTURE Stat Lab 11/18/24 14:17 Completed Medication Summary Discontinued Medications Generic Name Dose Route Start Last Admin Trade Name Freq PRN Reason Stop Dose Admin Dextrose 50 ml 11/18/24 17:29 11/18/24 17:30 Dextrose 50%-Water 50 Ml Abboject IV 11/18/24 17:30 50 ml STAT ONE Administration Dextrose Confirm 11/18/24 17:29 Dextrose 50%-Water 50 Ml Abboject Administered 11/18/24 17:30 Dose 50 ml IV .STK-MED ONE Sodium Chloride 1,000 mls @ 50 mls/hr 11/18/24 14:30 11/18/24 14:27 Sodium Chloride 0.9% 1000 Ml IV 12/18/24 14:29 50 mls/hr .Q20H ALEXANDRE Administration Sodium Chloride Confirm 11/18/24 14:26 Sodium Chloride 0.9% 1000 Ml Administered 11/18/24 14:27 Dose 1,000 mls @ ud .ROUTE .STK-MED ONE Lab/Rad Data: Laboratory Result Diagrams 11/18/24 14:10 11/18/24 14:10 Laboratory Results 11/18/24 11/18/24 11/18/24 Range/Units 17:27 17:05 17:02 WBC (3.98-10.04) x10^3/uL RBC (3.93-5.22) x10^6/uL Hgb (11.2-15.7) g/dL Hct (34.1-44.9) % MCV (79.4-94.8) fL MCH (25.6-32.2) pg MCHC (32.2-35.5) g/dL RDW (11.7-14.4) % Plt Count (182-369) x10^3/uL MPV (9.4-12.3) fL Segmented Neutrophils (34.0-71.1) % Lymphocytes (Manual) (19.3-51.7) % Monocytes (Manual) (4.7-12.5) % Eosinophils (Manual) (0.7-5.8) % Platelet Estimate (NORMAL) RBC Morphology Smear Path Review Sodium (135-145) mmol/L Potassium (3.5-5.1) mmol/L Chloride (98-107) mmol/L Carbon Dioxide (22-30) mmol/L Anion Gap (5-15) MEQ/L BUN (7-17) mg/dL Creatinine (0.52-1.04) mg/dL Estimated GFR ML/MIN Glucose (74-106) mg/dL POC Glucometer 64 L 61 L 55 L (50 to 500) mg/dL Lactic Acid (0.4-2.0) Calcium (8.4-10.2) mg/dL Total Bilirubin (0.2-1.3) mg/dL AST (14-36) U/L ALT (0-35) U/L Alkaline Phosphatase (38-126) U/L Ammonia (9-30) umol/L Troponin I (0.000-0.033) ng/mL NT-Pro-B Natriuret Pep (<300) pg/mL Serum Total Protein (6.3-8.2) g/dL Albumin (3.5-5.0) g/dL Lipase (23-300) U/L Urine Color (Yellow) Urine Appearance (Clear) Urine pH (4.6-8.0) Ur Specific Delong (1.005-1.030) Urine Protein (Negative) Urine Glucose (UA) (Negative) mg/dL Urine Ketones (Negative) Urine Blood (Negative) Urine Nitrite (Negative) Urine Bilirubin (Negative) Urine Urobilinogen (0.2) mg/dL Ur Leukocyte Esterase (Negative) U Hyaline Cast (Auto) (0-2) /LPF Urine Microscopic RBC (0-5) /HPF Urine Microscopic WBC (0-5) /HPF Ur Epithelial Cells (None Seen) /HPF Urine Bacteria (None Seen) /HPF Urine Culture Reflexed (NO) Ethyl Alcohol (0-10) mg/dL Influenza Type A Ag (NEGATIVE) Influenza Type B Ag (NEGATIVE) RSV (PCR) (NEGATIVE) SARS-CoV-2 (PCR) (NEGATIVE) 11/18/24 11/18/24 11/18/24 Range/Units 16:21 15:58 15:00 WBC (3.98-10.04) x10^3/uL RBC (3.93-5.22) x10^6/uL Hgb (11.2-15.7) g/dL Hct (34.1-44.9) % MCV (79.4-94.8) fL MCH (25.6-32.2) pg MCHC (32.2-35.5) g/dL RDW (11.7-14.4) % Plt Count (182-369) x10^3/uL MPV (9.4-12.3) fL Segmented Neutrophils (34.0-71.1) % Lymphocytes (Manual) (19.3-51.7) % Monocytes (Manual) (4.7-12.5) % Eosinophils (Manual) (0.7-5.8) % Platelet Estimate (NORMAL) RBC Morphology Smear Path Review Sodium (135-145) mmol/L Potassium (3.5-5.1) mmol/L Chloride (98-107) mmol/L Carbon Dioxide (22-30) mmol/L Anion Gap (5-15) MEQ/L BUN (7-17) mg/dL Creatinine (0.52-1.04) mg/dL Estimated GFR ML/MIN Glucose (74-106) mg/dL POC Glucometer 55 L 37 L* (50 to 500) mg/dL Lactic Acid (0.4-2.0) Calcium (8.4-10.2) mg/dL Total Bilirubin (0.2-1.3) mg/dL AST (14-36) U/L ALT (0-35) U/L Alkaline Phosphatase (38-126) U/L Ammonia < 9 L (9-30) umol/L Troponin I (0.000-0.033) ng/mL NT-Pro-B Natriuret Pep (<300) pg/mL Serum Total Protein (6.3-8.2) g/dL Albumin (3.5-5.0) g/dL Lipase (23-300) U/L Urine Color (Yellow) Urine Appearance (Clear) Urine pH (4.6-8.0) Ur Specific Delong (1.005-1.030) Urine Protein (Negative) Urine Glucose (UA) (Negative) mg/dL Urine Ketones (Negative) Urine Blood (Negative) Urine Nitrite (Negative) Urine Bilirubin (Negative) Urine Urobilinogen (0.2) mg/dL Ur Leukocyte Esterase (Negative) U Hyaline Cast (Auto) (0-2) /LPF Urine Microscopic RBC (0-5) /HPF Urine Microscopic WBC (0-5) /HPF Ur Epithelial Cells (None Seen) /HPF Urine Bacteria (None Seen) /HPF Urine Culture Reflexed (NO) Ethyl Alcohol (0-10) mg/dL Influenza Type A Ag (NEGATIVE) Influenza Type B Ag (NEGATIVE) RSV (PCR) (NEGATIVE) SARS-CoV-2 (PCR) (NEGATIVE) 11/18/24 11/18/24 11/18/24 Range/Units 14:38 14:35 14:17 WBC (3.98-10.04) x10^3/uL RBC (3.93-5.22) x10^6/uL Hgb (11.2-15.7) g/dL Hct (34.1-44.9) % MCV (79.4-94.8) fL MCH (25.6-32.2) pg MCHC (32.2-35.5) g/dL RDW (11.7-14.4) % Plt Count (182-369) x10^3/uL MPV (9.4-12.3) fL Segmented Neutrophils (34.0-71.1) % Lymphocytes (Manual) (19.3-51.7) % Monocytes (Manual) (4.7-12.5) % Eosinophils (Manual) (0.7-5.8) % Platelet Estimate (NORMAL) RBC Morphology Smear Path Review Sodium (135-145) mmol/L Potassium (3.5-5.1) mmol/L Chloride (98-107) mmol/L Carbon Dioxide (22-30) mmol/L Anion Gap (5-15) MEQ/L BUN (7-17) mg/dL Creatinine (0.52-1.04) mg/dL Estimated GFR ML/MIN Glucose (74-106) mg/dL POC Glucometer (50 to 500) mg/dL Lactic Acid 1.7 (0.4-2.0) Calcium (8.4-10.2) mg/dL Total Bilirubin (0.2-1.3) mg/dL AST (14-36) U/L ALT (0-35) U/L Alkaline Phosphatase (38-126) U/L Ammonia (9-30) umol/L Troponin I (0.000-0.033) ng/mL NT-Pro-B Natriuret Pep (<300) pg/mL Serum Total Protein (6.3-8.2) g/dL Albumin (3.5-5.0) g/dL Lipase (23-300) U/L Urine Color Dark Yellow A (Yellow) Urine Appearance Clear (Clear) Urine pH 5.5 (4.6-8.0) Ur Specific Delong 1.015 (1.005-1.030) Urine Protein 30 (Negative) Urine Glucose (UA) Negative (Negative) mg/dL Urine Ketones Negative (Negative) Urine Blood Negative (Negative) Urine Nitrite Negative (Negative) Urine Bilirubin Small A (Negative) Urine Urobilinogen 2.0 A (0.2) mg/dL Ur Leukocyte Esterase Trace A (Negative) U Hyaline Cast (Auto) 3-5 A (0-2) /LPF Urine Microscopic RBC 0-2 (0-5) /HPF Urine Microscopic WBC 0-2 (0-5) /HPF Ur Epithelial Cells Rare (None Seen) /HPF Urine Bacteria None Seen (None Seen) /HPF Urine Culture Reflexed YES (NO) Ethyl Alcohol (0-10) mg/dL Influenza Type A Ag NEGATIVE (NEGATIVE) Influenza Type B Ag NEGATIVE (NEGATIVE) RSV (PCR) NEGATIVE (NEGATIVE) SARS-CoV-2 (PCR) NEGATIVE (NEGATIVE) 11/18/24 11/18/24 11/18/24 Range/Units 14:10 14:10 14:10 WBC (3.98-10.04) x10^3/uL RBC (3.93-5.22) x10^6/uL Hgb (11.2-15.7) g/dL Hct (34.1-44.9) % MCV (79.4-94.8) fL MCH (25.6-32.2) pg MCHC (32.2-35.5) g/dL RDW (11.7-14.4) % Plt Count (182-369) x10^3/uL MPV (9.4-12.3) fL Segmented Neutrophils (34.0-71.1) % Lymphocytes (Manual) (19.3-51.7) % Monocytes (Manual) (4.7-12.5) % Eosinophils (Manual) (0.7-5.8) % Platelet Estimate (NORMAL) RBC Morphology Smear Path Review Sodium 139 (135-145) mmol/L Potassium 3.9 (3.5-5.1) mmol/L Chloride 101 (98-107) mmol/L Carbon Dioxide 26 (22-30) mmol/L Anion Gap 15.4 H (5-15) MEQ/L BUN 23 H (7-17) mg/dL Creatinine 1.01 (0.52-1.04) mg/dL Estimated GFR 57.7 ML/MIN Glucose 75 (74-106) mg/dL POC Glucometer (50 to 500) mg/dL Lactic Acid (0.4-2.0) Calcium 9.8 (8.4-10.2) mg/dL Total Bilirubin 1.90 H (0.2-1.3) mg/dL AST 207 H (14-36) U/L ALT 173 H (0-35) U/L Alkaline Phosphatase 528 H (38-126) U/L Ammonia (9-30) umol/L Troponin I < 0.012 (0.000-0.033) ng/mL NT-Pro-B Natriuret Pep 1280 (<300) pg/mL Serum Total Protein 6.3 (6.3-8.2) g/dL Albumin 3.6 (3.5-5.0) g/dL Lipase 147 (23-300) U/L Urine Color (Yellow) Urine Appearance (Clear) Urine pH (4.6-8.0) Ur Specific Delong (1.005-1.030) Urine Protein (Negative) Urine Glucose (UA) (Negative) mg/dL Urine Ketones (Negative) Urine Blood (Negative) Urine Nitrite (Negative) Urine Bilirubin (Negative) Urine Urobilinogen (0.2) mg/dL Ur Leukocyte Esterase (Negative) U Hyaline Cast (Auto) (0-2) /LPF Urine Microscopic RBC (0-5) /HPF Urine Microscopic WBC (0-5) /HPF Ur Epithelial Cells (None Seen) /HPF Urine Bacteria (None Seen) /HPF Urine Culture Reflexed (NO) Ethyl Alcohol < 10 (0-10) mg/dL Influenza Type A Ag (NEGATIVE) Influenza Type B Ag (NEGATIVE) RSV (PCR) (NEGATIVE) SARS-CoV-2 (PCR) (NEGATIVE) 11/18/24 Range/Units 14:10 WBC 1.6 L* (3.98-10.04) x10^3/uL RBC 3.65 L (3.93-5.22) x10^6/uL Hgb 10.0 L (11.2-15.7) g/dL Hct 30.9 L (34.1-44.9) % MCV 84.7 (79.4-94.8) fL MCH 27.4 (25.6-32.2) pg MCHC 32.4 (32.2-35.5) g/dL RDW 16.8 H (11.7-14.4) % Plt Count 68 L (182-369) x10^3/uL MPV 11.3 (9.4-12.3) fL Segmented Neutrophils 69 (34.0-71.1) % Lymphocytes (Manual) 19 L (19.3-51.7) % Monocytes (Manual) 11 (4.7-12.5) % Eosinophils (Manual) 1 (0.7-5.8) % Platelet Estimate DECREASED (NORMAL) RBC Morphology NORMAL Smear Path Review Sodium (135-145) mmol/L Potassium (3.5-5.1) mmol/L Chloride (98-107) mmol/L Carbon Dioxide (22-30) mmol/L Anion Gap (5-15) MEQ/L BUN (7-17) mg/dL Creatinine (0.52-1.04) mg/dL Estimated GFR ML/MIN Glucose (74-106) mg/dL POC Glucometer (50 to 500) mg/dL Lactic Acid (0.4-2.0) Calcium (8.4-10.2) mg/dL Total Bilirubin (0.2-1.3) mg/dL AST (14-36) U/L ALT (0-35) U/L Alkaline Phosphatase (38-126) U/L Ammonia (9-30) umol/L Troponin I (0.000-0.033) ng/mL NT-Pro-B Natriuret Pep (<300) pg/mL Serum Total Protein (6.3-8.2) g/dL Albumin (3.5-5.0) g/dL Lipase (23-300) U/L Urine Color (Yellow) Urine Appearance (Clear) Urine pH (4.6-8.0) Ur Specific Delong (1.005-1.030) Urine Protein (Negative) Urine Glucose (UA) (Negative) mg/dL Urine Ketones (Negative) Urine Blood (Negative) Urine Nitrite (Negative) Urine Bilirubin (Negative) Urine Urobilinogen (0.2) mg/dL Ur Leukocyte Esterase (Negative) U Hyaline Cast (Auto) (0-2) /LPF Urine Microscopic RBC (0-5) /HPF Urine Microscopic WBC (0-5) /HPF Ur Epithelial Cells (None Seen) /HPF Urine Bacteria (None Seen) /HPF Urine Culture Reflexed (NO) Ethyl Alcohol (0-10) mg/dL Influenza Type A Ag (NEGATIVE) Influenza Type B Ag (NEGATIVE) RSV (PCR) (NEGATIVE) SARS-CoV-2 (PCR) (NEGATIVE) - Progress Progress: improved Progress Note: 11/18/24 16:12 I spoke to hospitalist at 4:13pm he feels patient would be better served at a higher level of care at an institution who has heme-onc and GI. 11/18/24 16:26 I spoke to ER At [facility] accepts transfer at 4:22 PM. 74-year-old female presents to our emergency department for evaluation of feeling unwell. Patient complained of a headache body aches cold sweats. Nurse advised that patient's blood sugar was low. We are monitoring blood sugar in our ED. Additionally workup revealed a rivera cytopenia. Liver enzymes were elevated as well as bilirubin and alk phos. Hospitalist felt patient required transfer. Patient accepted at [facility] for further evaluation and treatment. Plan of care discussed with patient. Patient agreed to transfer to [facility] for further evaluation and treatment. CT head abdomen pelvis and right upper quadrant ultrasound negative for acute pathology. EKG revealed a paced rhythm Portions of this note were created with voice recognition technology. There may be grammatical, spelling, punctuation or sound alike errors Complexity of problem addressed is moderate acute complicated. No critical care time. Complex of data reviewed and analyzed is extensive. Test ordered test reviewed results analyzed and correlated clinically with history and physical exam. I discussed the case with our hospitalist who advised transfer to higher level of care. I discussed the case with the ER physician at [facility] who accepts transfer. Risk of complication and or risk of morbidity/mortality of patient management is high. Patient requires hospitalization/transfer to higher level of care. Vital stable. Time spent to transfer patient is approximately 20 minutes. Plan of care established for shared decision making. No social determinants of health present to impede follow-up. Portions of this note were created with voice recognition technology. There may be grammatical, spelling, punctuation or sound alike errors 11/18/24 18:21 11/18/24 18:23 Counseled pt/family regarding: lab results, diagnosis, rad results - Departure Departure Disposition: Observation Clinical Impression: Pancytopenia, Dehydration, Transaminitis, Hyperbilirubinemia, Elevated alkaline phosphatase level, Hypoglycemia, Splenomegaly, Adenoma of left adrenal gland Condition: Stable Critical Care Time: No Referrals: KAYLA MEJIA [Primary Care Provider, [facility]] - Follow up/PCP as directed
[2024-11-18] MEDS ORDERED: Sodium Chloride 0.9% 1000 ML 1,000 ML ONE (14:26)
[2024-11-18] MEDS: Sodium Chloride 0.9% 1000 ML 1,000 ML IV SCH (14:27)
[2024-11-18 14:29] LABS: White Blood Count 1.6 x10^3/uL (3.98-10.04)
[2024-11-18 14:32] LABS: Appearance Clear (Clear); Bacteria None Seen /HPF (None Seen); Bilirubin Small (Negative); Blood Negative (Negative); Epithelial Cells Rare /HPF (None Seen); Glucose, Urine Negative (Negative); Ketones Negative (Negative); Leukocyte Esterase Trace (Negative); Nitrite Negative (Negative); Ph 5.5 (4.6-8.0); Protein,Urine Dip 30 (Negative); RBC 0-2 /HPF (0-5); Specific Gravity 1.015 (1.005-1.030); WBC 0-2 /HPF (0-5)
[2024-11-18 14:47] LABS: ALBUMIN 3.6 g/dL (3.5-5.0); ALKALINE PHOSPHATASE 528 U/L (38-126); ANION GAP 15.4 MEQ/L (5-15); BLOOD UREA NITROGEN 23 mg/dL (7-17); CHLORIDE 101 mmol/L (98-107); Calcium 9.8 mg/dL (8.4-10.2); Carbon Dioxide 26 mmol/L (22-30); Creatinine 1 1.01 mg/dL (0.52-1.04); EST GLOMERULAR FILTRATION RATE 57.7 ML/MIN; ETHYL ALCOHOL < 10 mg/dL (0-10); Glucose 75 mg/dL (74-106); NT PRO BNPII 1280 pg/mL (<300); Potassium 3.9 mmol/L (3.5-5.1); SGOT/AST 207 U/L (14-36); SGPT/ALT 173 U/L (0-35); SODIUM 139 mmol/L (135-145); Total Protein 6.3 g/dL (6.3-8.2)
[2024-11-18 15:18] LABS: INFLUENZA A NEGATIVE (NEGATIVE); INFLUENZA B NEGATIVE (NEGATIVE); RESPIRATORY SYNCTIAL VIRUS NEGATIVE (NEGATIVE); SARS-CoV-2 Xpert Express NEGATIVE (NEGATIVE)
[2024-11-18 15:21] LABS: Eosinophil 1 % (0.7-5.8); Lymphocytes 19 % (19.3-51.7); Monocyte 11 % (4.7-12.5); Neutrophils 69 % (34.0-71.1); Total Cells Counted 100
[2024-11-18 15:24] LABS: Platelet Estimate DECREASED (NORMAL)
--- NOTE | 2024-11-18 15:38 | XRAY ---
Indication: Headache and unsteady gait 3 days. Multiple contiguous axial images obtained through the head without contrast. Comparison: July 20, 2023 Again age-appropriate global atrophy and minimal periventricular degenerative micro-ischemia. No acute intracranial hemorrhage, abnormal extra-axial fluid collection, or mass effect. Fourth ventricle is midline without hydrocephalus. Bony calvarium intact. Visualized paranasal sinuses and mastoid air cells are clear. Impression: Continued nonacute senile brain.
--- NOTE | 2024-11-18 15:38 | XRAY ---
Indication: Right upper quadrant pain. Cholecystectomy. Two-dimensional gallbladder sonogram performed. Comparison: None Gallbladder surgical absent. Common bile duct measures 4.1 mm. No intrahepatic biliary distention or free fluid. Remaining visualized liver, pancreas, and right kidney are sonographically unremarkable. Right kidney measures 8.7 x 4.1 x 4.8 cm. Impression: Cholecystectomy. Remaining gallbladder sonogram is negative.
--- NOTE | 2024-11-18 16:14 | XRAY ---
Indication: Pain. Multiple contiguous axial images obtained through the abdomen and pelvis without contrast. Comparison: March 04, 2023 Lung bases there is minimal dependent atelectasis. No infiltrate or effusion. Heart not enlarged again with small right infrahilar calcified node. Noncontrasted stomach and bowel loops nonobstructed. There is again mild diffuse scattered colonic fecal debris throughout less than before. New 18 cm splenomegaly again with incidental tiny splenic calcified granulomas. Stable sigmoid diverticulosis, 1.8 cm left adrenal adenoma, hysterectomy, appendectomy, and cholecystectomy. No free fluid/air. Remaining liver, pancreas, spleen, adrenal glands, kidneys, ureters, and bladder are unremarkable for noncontrast exam. Again mild scattered aortoiliac calcifications without AAA. Osseous structures intact again with osteopenia and mild multilevel degenerative spondylosis throughout. Impression: 1. New splenomegaly. 2. Again chronic findings including fecal stasis, sigmoid diverticulosis, left adrenal adenoma, arteriosclerotic disease, chronic bony findings, and old granulomatous disease. 3. No acute findings on this noncontrast exam.
[2024-11-18 17:08] VITALS: RESP 18
[2024-11-18] MEDS ORDERED: D50W 50 ml Abboject IV ONE (17:29)
[2024-11-18] MEDS: D50W 50 ml Abboject IV ONE (17:30)
[2024-11-18 17:39] VITALS: BP 111/66; PULSE 78
[2024-11-18 18:24] VITALS: O2SAT 99
== END 2024-11-18 17:38 | disposition short-term general hospital (02) ==
LOC: ED 13:36
DX: D61.818 Other pancytopenia (principal); E86.0 Dehydration; R74.01 Elevation of levels of liver transaminase levels; E80.6 Other disorders of bilirubin metabolism; R74.8 Abnormal levels of other serum enzymes; E11.649 Type 2 diabetes mellitus with hypoglycemia without coma; R16.1 Splenomegaly, not elsewhere classified; D35.02 Benign neoplasm of left adrenal gland; R51.9 Headache, unspecified; M79.10 Myalgia, unspecified site; R35.0 Frequency of micturition; Z79.01 Long term (current) use of anticoagulants; Z79.84 Long term (current) use of oral hypoglycemic drugs; Z79.899 Other long term (current) drug therapy
CPT/HCPCS: 0241U; 36415; 70450; 74176; 76705; 80053; 81001; 82077; 82140; 82947; 83605; 83690; 83880; 84484; 85025; 87086; 93005; 93041; 94760; 96374; 99285

== ENCOUNTER 2024-11-24 04:10 | Emergency (ER) | payer MEDICARE ==
--- NOTE | 2024-11-24 04:34 | ERPHSYRPT ---
- History of Present Illness Source: patient Exam Limitations: no limitations Timing/Duration: today Severity: moderate Character of Deficits: none Deficits: no difficulties Baseline/Normal Cognition: alert oriented x 3 Current Cognition: alert oriented x 3 Baseline Gait: walks w/o assistance Associated Symptoms: other (Dizziness) Hx Tetanus, Diphtheria Vaccination/Date Given: No Hx Influenza Vaccination/Date Given: No Hx Pneumococcal Vaccination/Date Given: Yes - History of Present Illness Time Seen by Provider: 11/24/24 04:25 Physician History: This is an obese 74-year-old white female patient brought to the emergency department by the gas meter repair supervisor service secondary to feeling dizzy. Patient went to get up out of bed this morning and she felt dizzy and slid to the ground. She did not hit her head. Patient arrives to the emergency department with a heart rate of 127 bpm. She is maintaining her blood pressure in the normal range. She does have a history of atrial fibrillation and is on Eliquis. Patient has a pacemaker in place. She has a history of pancytopenia, diabetes, hyperlipidemia and anxiety. She denies chest pain and she denies shortness of breath. She was recently discharged from [facility] for similar complaints. She was told to see a manufacturing controls engineer as an outpatient. She denies new medications. She states that she does have dysuria. Patient's shake cutter/oncologist is Dr. Caldera (PASCUAL CERVANTES) Allergies/Adverse Reactions: rivaroxaban [From Xarelto] Allergy (Verified 11/18/24 13:49) semaglutide [From Ozempic] Allergy (Verified 11/18/24 13:49) Home Medications: Rosuvastatin Calcium [Crestor] 10 mg PO HS 10/09/12 [History] Apixaban [Eliquis 2.5 mg Tablet] 5 mg PO BID 07/07/19 [History] Metformin HCl 850 mg [Glucophage 850 MG] 850 mg PO BID 03/04/23 [History] Chlorthalidone 12.5 mg PO DAILY 07/20/23 [History] Metoprolol Tartrate 25 mg [Lopressor 25MG Tab] 25 mg PO DAILY 07/20/23 [History] Glimepiride 2 mg [Amaryl 2 MG] 2 mg PO BID 09/21/24 [History] ALPRAZolam [Alprazolam] 0.5 mg PO BID 11/18/24 [History] Celecoxib 200 mg PO BID 11/18/24 [History] Gabapentin 100 mg PO HS 11/18/24 [History] Travel Risk - International Travel Have you traveled outside of the country in past 3 weeks: No - Emerging Infectious Disease Are you exhibiting symptoms associated with any current EIDs: No Symptoms: Cough: New Onset, Fever, Shortness of Breath - Review of Systems Constitutional: No Symptoms Eyes: No Symptoms Ears, Nose, & Throat: No Symptoms Respiratory: No Symptoms Cardiac: No Symptoms Abdominal/Gastrointestinal: No Symptoms Genitourinary Symptoms: Dysuria Musculoskeletal: No Symptoms Skin: No Symptoms Neurological: Dizziness Psychological: No Symptoms Endocrine: No Symptoms Hematologic/Lymphatic: No Symptoms Immunological/Allergic: No Symptoms All Other Systems: Reviewed and Negative - Past Medical History Pertinent Past Medical History: Yes Neurological History: No Pertinent History ENT History: Cataracts Cardiac History: Arrhythmia, High Cholesterol, Hypertension, Other Respiratory History: No Pertinent History Endocrine Medical History: Diabetes Type II, Other Musculoskeletal History: Osteoarthritis GI Medical History: GERD, Gallbladder Disease, Liver Cancer History: No Pertinent History Psycho-Social History: Anxiety Female Reproductive Disorders: Uterine Cancer Other Medical History: HX OF UTERINE CANCER (HYSTERECTOMY 1987), 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 SCHEDULED FOR WATCHMAN PROCEDURE SOMETINE IN NOVEMBER. - Past Surgical History Past Surgical History: Yes Neuro Surgical History: No Pertinent History Cardiac: Cardiac Catheterization, Pacemaker Respiratory: No Pertinent History Gastrointestinal: Appendectomy, Cholecystectomy Genitourinary: No Pertinent History Musculoskeletal: No Pertinent History Female Surgical History: Hysterectomy, Section Other Surgical History: liver biopsy - Social History Smoking Status: Never smoker Exposure to second hand smoke: No Drug Use: none - Social Determinants of Health Will the patient participate in the screening: Yes Do you worry about a steady place to live?: No In the past 12 months,have you had to go without utilities?: No Transportation Issues: No Has anyone in your support network made you feel unsafe?: No Have you or anyone in your house had to go w/o enough food: No - Helix Coma Scale Best Eye Response (Helix): (4) open spontaneously Best Verbal Response (Helix): (5) oriented Best Motor Response (Laura): (6) obeys commands Laura Total: 15 - Physical Exam General Appearance: no apparent distress, alert, anxiety, obese Eye Exam: bilateral eye: normal inspection, PERRL, EOMI Ears, Nose, Throat Exam: normal ENT inspection, moist mucous membranes Neck Exam: normal inspection, non-tender, supple, full range of motion Respiratory: normal breath sounds, lungs clear, airway intact, No chest tenderness, No respiratory distress Cardiovascular: tachycardia Gastrointestinal: soft, normal bowel sounds, No tenderness Pelvic Exam: not done Rectal Exam: not done Back Exam: normal inspection, normal range of motion, No CVA tenderness, No vertebral tenderness Extremity Exam: normal inspection, normal range of motion, pelvis stable Mental Status: alert, oriented x 3, cooperative elementary reading tutor Exam: normal hearing, normal speech, PERRL Skin Exam: normal color, warm, dry SpO2 Interpretation: normal O2 Delivery: Room Air - Nursing Vital Signs Nursing Vital Signs: Initial Vital Signs Temperature 98.6 F 11/24/24 04:10 Pulse Rate 128 H 11/24/24 04:10 Respiratory Rate 24 11/24/24 04:10 Blood Pressure 139/90 11/24/24 04:10 O2 Sat by Pulse Oximetry 97 11/24/24 04:10 Pain Scale Pain Intensity 0 - Course Nursing assessment & vital signs reviewed: Yes EKG Interpreted by Me: RATE (125), Sinus Tach, LAFB, NORMAL INTERVALS, NORMAL QRS, Other (QTc is 397. There is no evidence of any acute ischemia on today's twelve-lead EKG.) Ordered Tests: Active Orders 24 hr Category Date Time Status Webbing Tacker STAT Care 11/24/24 04:40 Active EKG-ER Only STAT Care 11/24/24 04:39 Active EKG-ER Only STAT Care 11/24/24 05:43 Active EKG-ER Only STAT Care 11/24/24 07:53 Active IV Insertion STAT Care 11/24/24 04:39 Active POCT Glucose Check STAT Care 11/24/24 04:39 Active CHEST 1 VIEW (PORTABLE) Stat Exams 11/24/24 07:22 Completed HEAD WITHOUT CONTRAST [CT] Stat Exams 11/24/24 04:40 Completed US ABDOMEN LIMITED [ABDOMINAL-LIMITED] [US] Stat Exams 11/24/24 08:24 Ordered CBC W DIFF Stat Lab 11/24/24 05:02 Completed CMP Stat Lab 11/24/24 05:02 Completed CULTURE,URINE Stat Lab 11/24/24 07:18 Received MAGNESIUM Stat Lab 11/24/24 05:02 Completed Manual Differential NC Stat Lab 11/24/24 05:02 Completed NT PRO BNPII Stat Lab 11/24/24 05:02 Completed POCT GLUCOSE Stat Lab 11/24/24 05:03 Completed TROPONIN Q4H Lab 11/24/24 05:02 Completed TROPONIN Q4H Lab 11/24/24 08:30 Received TROPONIN Q4H Lab 11/24/24 12:45 Ordered UA W/RFX UR CULTURE Stat Lab 11/24/24 07:18 Completed Medication Summary Discontinued Medications Generic Name Dose Route Start Last Admin Trade Name Freq PRN Reason Stop Dose Admin Hydrocodone Bitart/Acetaminophen 1 tab 11/24/24 07:52 11/24/24 08:31 Hydrocodone/Apap 5/325 1 Tab Tablet PO 11/24/24 07:53 1 tab STAT ONE Administration Hydrocodone Bitart/Acetaminophen Confirm 11/24/24 08:24 Hydrocodone/Apap 5/325 1 Tab Tablet Administered 11/24/24 08:25 Dose 1 tab .ROUTE .STK-MED ONE Diltiazem HCl 10 mg 11/24/24 04:41 11/24/24 05:30 Diltiazem Hcl Iv 5 Mg/Ml Vial IV 11/24/24 04:42 10 mg STAT ONE Administration Diltiazem HCl Confirm 11/24/24 05:28 Diltiazem Hcl Iv 5 Mg/Ml Vial Administered 11/24/24 05:29 Dose 50 mg IV .STK-MED ONE Metoprolol Tartrate 5 mg 11/24/24 05:10 11/24/24 05:49 Metoprolol Tartrate 5 Mg/5 Ml Vial IV 11/24/24 05:11 5 mg STAT ONE Administration Metoprolol Tartrate Confirm 11/24/24 05:28 Metoprolol Tartrate 5 Mg/5 Ml Vial Administered 11/24/24 05:29 Dose 5 mg IV .STK-MED ONE Ondansetron HCl 8 mg 11/24/24 08:27 11/24/24 08:30 Ondansetron Hcl 4 Mg/2 Ml Vial IV 11/24/24 08:28 8 mg STAT ONE Administration Ondansetron HCl Confirm 11/24/24 08:28 Ondansetron Hcl 4 Mg/2 Ml Vial Administered 11/24/24 08:29 Dose 8 mg .ROUTE .K-MED ONE Lab/Rad Data: Laboratory Result Diagrams 11/24/24 05:02 11/24/24 05:02 Laboratory Results 11/24/24 11/24/24 11/24/24 Range/Units 07:18 05:03 05:02 WBC (3.98-10.04) x10^3/uL RBC (3.93-5.22) x10^6/uL Hgb (11.2-15.7) g/dL Hct (34.1-44.9) % MCV (79.4-94.8) fL MCH (25.6-32.2) pg MCHC (32.2-35.5) g/dL RDW (11.7-14.4) % Plt Count (182-369) x10^3/uL MPV (9.4-12.3) fL Segmented Neutrophils (34.0-71.1) % Band Neutrophils (0.0-2.0) % Lymphocytes (Manual) (19.3-51.7) % Monocytes (Manual) (4.7-12.5) % Nucleated RBCs % Platelet Estimate (NORMAL) RBC Morphology Poikilocytosis Sodium (135-145) mmol/L Potassium (3.5-5.1) mmol/L Chloride (98-107) mmol/L Carbon Dioxide (22-30) mmol/L Anion Gap (5-15) MEQ/L BUN (7-17) mg/dL Creatinine (0.52-1.04) mg/dL Estimated GFR ML/MIN Glucose (74-106) mg/dL POC Glucometer 97 (74 to 106) mg/dL Calcium (8.4-10.2) mg/dL Magnesium (1.6-2.3) mg/dL Total Bilirubin (0.2-1.3) mg/dL AST (14-36) U/L ALT (0-35) U/L Alkaline Phosphatase (38-126) U/L Troponin I 0.013 (0.000-0.033) ng/mL NT-Pro-B Natriuret Pep 2430 (<300) pg/mL Serum Total Protein (6.3-8.2) g/dL Albumin (3.5-5.0) g/dL Urine Color Dark Yellow A (Yellow) Urine Appearance Turbid A (Clear) Urine pH 5.0 (4.6-8.0) Ur Specific [place] 1.020 (1.005-1.030) Urine Protein 100 A (Negative) Urine Glucose (UA) Negative (Negative) mg/dL Urine Ketones Trace A (Negative) Urine Blood Negative (Negative) Urine Nitrite Negative (Negative) Urine Bilirubin Moderate A (Negative) Urine Urobilinogen 2.0 A (0.2) mg/dL Ur Leukocyte Esterase Small A (Negative) U Hyaline Cast (Auto) NONE SEEN (0-2) /LPF Urine Microscopic RBC 6-10 A (0-5) /HPF Urine Microscopic WBC 0-2 (0-5) /HPF Ur Epithelial Cells Few (None Seen) /HPF Urine Bacteria None Seen (None Seen) /HPF Granular Casts 6-10 A (None Seen) /LPF Urine Culture Reflexed YES (NO) 11/24/24 11/24/24 Range/Units 05:02 05:02 WBC 2.9 L (3.98-10.04) x10^3/uL RBC 3.55 L (3.93-5.22) x10^6/uL Hgb 9.6 L (11.2-15.7) g/dL Hct 29.6 L (34.1-44.9) % MCV 83.4 (79.4-94.8) fL MCH 27.0 (25.6-32.2) pg MCHC 32.4 (32.2-35.5) g/dL RDW 17.1 H (11.7-14.4) % Plt Count 70 L (182-369) x10^3/uL MPV 10.7 (9.4-12.3) fL Segmented Neutrophils 71 (34.0-71.1) % Band Neutrophils 4 H (0.0-2.0) % Lymphocytes (Manual) 16 L (19.3-51.7) % Monocytes (Manual) 9 (4.7-12.5) % Nucleated RBCs 2 % Platelet Estimate DECREASED (NORMAL) RBC Morphology ABNORMAL Poikilocytosis 1+ Sodium 133 L (135-145) mmol/L Potassium 4.7 (3.5-5.1) mmol/L Chloride 99 (98-107) mmol/L Carbon Dioxide 17 L (22-30) mmol/L Anion Gap 21.8 H (5-15) MEQ/L BUN 25 H (7-17) mg/dL Creatinine 1.13 H (0.52-1.04) mg/dL Estimated GFR 50.4 ML/MIN Glucose 106 (74-106) mg/dL POC Glucometer (74 to 106) mg/dL Calcium 10.3 H (8.4-10.2) mg/dL Magnesium 1.4 L (1.6-2.3) mg/dL Total Bilirubin 4.40 H (0.2-1.3) mg/dL AST 919 H (14-36) U/L ALT 406 H (0-35) U/L Alkaline Phosphatase 862 H (38-126) U/L Troponin I (0.000-0.033) ng/mL NT-Pro-B Natriuret Pep (<300) pg/mL Serum Total Protein 5.9 L (6.3-8.2) g/dL Albumin 3.2 L (3.5-5.0) g/dL Urine Color (Yellow) Urine Appearance (Clear) Urine pH (4.6-8.0) Ur Specific [place] (1.005-1.030) Urine Protein (Negative) Urine Glucose (UA) (Negative) mg/dL Urine Ketones (Negative) Urine Blood (Negative) Urine Nitrite (Negative) Urine Bilirubin (Negative) Urine Urobilinogen (0.2) mg/dL Ur Leukocyte Esterase (Negative) U Hyaline Cast (Auto) (0-2) /LPF Urine Microscopic RBC (0-5) /HPF Urine Microscopic WBC (0-5) /HPF Ur Epithelial Cells (None Seen) /HPF Urine Bacteria (None Seen) /HPF Granular Casts (None Seen) /LPF Urine Culture Reflexed (NO) - Progress Progress: improved, re-examined - Progress Progress Note: 11/24/24 04:36 My medical decision making and the assignment of moderate complexity of this patient's medical issue today is based on review of the patient's past medical history, review the patient's medication list, reviewed patient drug allergy list, history present illness and physical findings on examination. The workup in this patient includes placement of intravenous line, CBC, CMP, magnesium level, twelve-lead EKG, urinalysis, CT scan of the head without contrast, troponin level, BNP. Differential diagnosis includes but is not limited to atrial fibrillation with RVR, urinary tract infection, dehydration, electrolyte abnormalities, myocardial infarction, acute intracranial abnormality 11/24/24 05:41 I interpreted the patient's laboratory data results. As expected per patient recent history patient does have leukopenia with a hemoglobin 9.6 and a platelet count of. She has a magnesium of 1.4. We will provide her with supplementation intravenously. Patient's LFTs are elevated as expected per patient recent history. The patient has had a few short runs of V. tach on the monitor but has a pulse and is maintaining her systolic blood pressure in the 130s. She has no complaints of chest pain or shortness of breath. 11/24/24 05:43 Family member arrived and provided additional, independent history which includes that the patient has a PET scan and bone marrow biopsy scheduled on an outpatient basis within the next 10 days. The family would like the patient to be placed in a temporary [facility] facility due to rehab and get stronger. 11/24/24 05:50 I interpreted the second twelve-lead EKG that was performed on 11/24/2024 at 544 a.m. The heart rate is 105 bpm it is ventricular paced rhythm QTc is 487 and there is no evidence of acute ischemia. QRS is slightly widened, regular and monomorphic. 11/24/24 07:16 I am transferring care of this patient to Dr. Yip at shift change. I reviewed the patient history, presenting complaint, physical findings, workup and the workup results that have returned. There are still outstanding studies to be performed and resulted. He will follow-up with those studies and make final disposition. (PASCUAL CERVANTES) 11/24/24 08:45 As above, patient likely needs to be admitted for dizziness, recent fall, recent history of lab abnormalities and large outpatient workup pending. Also of note patient has new increase in bilirubin, LFTs. I will repeat an ultrasound of the patient's right upper quadrant. She does have a previous cholecystectomy. I repeated an EKG that demonstrated ventricular paced complexes, rate of 89, RI interval 181, QRS 161, QTc 507, my interpretation of EKG. This does appear pretty similar to an EKG that was done at 5:44 AM this morning. Previous to that patient had an EKG done at 4:26 AM that demonstrated likely atrial fibrillation as patient has been off of her medications. Given this we will obtain an ultrasound of the right upper quadrant looking for any liver issues, common bile duct stone. Patient does have a negative gallbladder ultrasound from 11/18/2024 of this year. Patient likely needs transferred back to [facility]. (DARINEL YIP) Medical Desision Making - Independent Historian Additional History obtained from: Family - Departure Departure Disposition: Observation Critical Care Time: Yes Critical Care Time(excluding separately billable procedures): Critical 30-74 mins (50 minutes) - Departure Clinical Impression: Tachycardia, Dizziness Condition: Fair Referrals: KAYLA MEJIA [Primary Care Provider, INTERNAL MEDICINE] - Follow up/PCP as directed
[2024-11-24 05:08] LABS: Hematocrit 29.6 % (34.1-44.9); Hemoglobin 9.6 g/dL (11.2-15.7); Mean Cell Volume 83.4 fL (79.4-94.8); Mean Corpuscular Hgb Concent. 32.4 g/dL (32.2-35.5); Mean Platelet Volume 10.7 fL (9.4-12.3); Platelet Count 70 x10^3/uL (182-369); Red Blood Count 3.55 x10^6/uL (3.93-5.22); Red Cell Distribution Width 17.1 % (11.7-14.4); White Blood Count 2.9 x10^3/uL (3.98-10.04)
[2024-11-24 05:20] LABS: ALBUMIN 3.2 g/dL (3.5-5.0); ANION GAP 21.8 MEQ/L (5-15); BILIRUBIN,TOTAL 4.4 mg/dL (0.2-1.3); Calcium 10.3 mg/dL (8.4-10.2); Creatinine 1 1.13 mg/dL (0.52-1.04); EST GLOMERULAR FILTRATION RATE 50.4 ML/MIN; MAGNESIUM 1.4 mg/dL (1.6-2.3); Potassium 4.7 mmol/L (3.5-5.1); Total Protein 5.9 g/dL (6.3-8.2)
[2024-11-24 05:21] VITALS: TEMP 98.6
[2024-11-24] MEDS ORDERED: Cardizem IV 50 MG/10 ML IV ONE (05:28)
[2024-11-24] MEDS ORDERED: LOPRESSOR INJECTION IV ONE (05:28)
[2024-11-24] MEDS: Cardizem IV 50 MG/10 ML IV ONE (05:30)
[2024-11-24 05:32] LABS: TROPONIN 0.013 ng/mL (0.000-0.033)
[2024-11-24] MEDS: LOPRESSOR INJECTION IV ONE (05:49)
[2024-11-24 05:58] LABS: BAND 4 % (0.0-2.0); Lymphocytes 16 % (19.3-51.7); Monocyte 9 % (4.7-12.5); Neutrophils 71 % (34.0-71.1); Nucleated Red Blood Cell 2 %; Poikilocytosis 1+; Total Cells Counted 100
[2024-11-24 05:59] LABS: Platelet Estimate DECREASED (NORMAL)
[2024-11-24 08:07] LABS: Appearance Turbid (Clear); Bacteria None Seen /HPF (None Seen); Bilirubin Moderate (Negative); Blood Negative (Negative); Epithelial Cells Few /HPF (None Seen); Glucose, Urine Negative (Negative); Ketones Trace (Negative); Leukocyte Esterase Small (Negative); Nitrite Negative (Negative); Protein,Urine Dip 100 (Negative); WBC 0-2 /HPF (0-5)
[2024-11-24 08:08] LABS: Hyaline Casts NONE SEEN /LPF (0-2)
[2024-11-24] MEDS ORDERED: NORCO 5/325 MG ONE (08:24)
[2024-11-24] MEDS ORDERED: Zofran 4 MG/2 ML VIAL ONE (08:28)
[2024-11-24] MEDS: Zofran 4 MG/2 ML VIAL IV ONE (08:30)
[2024-11-24] MEDS: NORCO 5/325 MG PO ONE (08:31)
--- NOTE | 2024-11-24 08:42 | XRAY ---
Indication: Dizziness. Tachycardia. Multiple contiguous axial images obtained through the head without contrast. Comparison: November 18, 2024 Base of brain now degraded by beam artifact from external metallic device/leads and left earring. Again age-appropriate global atrophy and minimal periventricular degenerative micro-ischemia. No acute intracranial hemorrhage, abnormal extra-axial fluid collection, or mass effect. Fourth ventricle is midline without hydrocephalus. Bony calvarium intact. Visualized paranasal sinuses and mastoid air cells are clear. Impression: No change compared to ER CT exam 6 days ago. Continued grossly nonacute senile brain.
--- NOTE | 2024-11-24 08:42 | XRAY ---
Indication: Dizziness. Comparison: September 21, 2024 Portable chest unchanged again inflated and clear. Heart not enlarged again with right pacemaker. Bony thorax intact again with osteopenia and degenerative changes. No new/acute findings.
--- NOTE | 2024-11-24 09:16 | XRAY ---
Indication: Elevated liver enzymes. Cholecystectomy. Two-dimensional right upper quadrant abdominal sonogram performed. Comparison: None Visualized liver demonstrates 22 cm hepatomegaly. Also incidental 21.5 cm splenomegaly. No focal solid/cystic hepatic mass or ascites. Gallbladder surgically absent. Common bile duct measures 3.8 mm. No intrahepatic biliary distention. Remaining visualized pancreas and right kidney are sonographically unremarkable. Right kidney measures 9.9 x 4.1 x 3.9 cm. Impression: Hepatosplenomegaly. Cholecystectomy. Remaining right upper quadrant sonogram is negative.
[2024-11-24 12:27] LABS: Amphetamine,Urine NEGATIVE (NEGATIVE); Barbiturate,Urine NEGATIVE (NEGATIVE); Benzodiazepine,Urine POSITIVE (NEGATIVE); Cocaine,Urine NEGATIVE (NEGATIVE); Methadone,Urine NEGATIVE (NEGATIVE); Opiate,Urine POSITIVE (NEGATIVE); PCP,Urine NEGATIVE (NEGATIVE); THC,Urine NEGATIVE (NEGATIVE)
[2024-11-24 12:29] LABS: INR 1.48 (0.8-3.0); PROTIME 15.7 SECONDS (9.4-12.5)
[2024-11-24] MEDS ORDERED: PIPERACILLIN/TAZOBACTAM IV ONE (13:20)
[2024-11-24] MEDS ORDERED: Sodium Chloride 0.9% 100 ML ONE (13:21)
[2024-11-24] MEDS: PIPERACILLIN/TAZOBACTAM 4.5 GM in Sodium Chloride 0.9% 100 ML IV STA (13:22)
[2024-11-24 21:12] VITALS: RESP 25; O2SAT 97
[2024-11-24] MEDS: MOTRIN 600 MG PO ONE (21:13)
[2024-11-24] MEDS ORDERED: MOTRIN 600 MG ONE (21:13)
[2024-11-24 21:47] LABS: Hematocrit 29.3 % (34.1-44.9); Hemoglobin 9.3 g/dL (11.2-15.7); Mean Cell Volume 84.2 fL (79.4-94.8); Mean Corpuscular Hemoglobin 26.7 pg (25.6-32.2); Mean Corpuscular Hgb Concent. 31.7 g/dL (32.2-35.5); Mean Platelet Volume 12.2 fL (9.4-12.3); Platelet Count 77 x10^3/uL (182-369); Red Blood Count 3.48 x10^6/uL (3.93-5.22); Red Cell Distribution Width 17.1 % (11.7-14.4); White Blood Count 2.8 x10^3/uL (3.98-10.04)
[2024-11-24 21:59] LABS: ALBUMIN 3.1 g/dL (3.5-5.0); ANION GAP 18.7 MEQ/L (5-15); BILIRUBIN,TOTAL 4.2 mg/dL (0.2-1.3); Calcium 10.1 mg/dL (8.4-10.2); Creatinine 1 1.31 mg/dL (0.52-1.04); EST GLOMERULAR FILTRATION RATE 42.2 ML/MIN; Potassium 4.4 mmol/L (3.5-5.1); Total Protein 5.8 g/dL (6.3-8.2)
[2024-11-24 22:03] VITALS: BP 132/88; PULSE 105
[2024-11-24 22:11] LABS: INR 1.44 (0.8-3.0); PROTIME 15.3 SECONDS (9.4-12.5)
[2024-11-24 22:15] LABS: ALBUMIN 3.2 g/dL (3.5-5.0); BILIRUBIN,TOTAL 4.3 mg/dL (0.2-1.3); Direct Bilirubin 3.2 mg/dL (0.0-0.4); MAGNESIUM 1.5 mg/dL (1.6-2.3); TROPONIN 0.015 ng/mL (0.000-0.033); Total Protein 6.1 g/dL (6.3-8.2)
[2024-11-24 22:27] LABS: Lymphocytes 17 % (19.3-51.7); Metamyelocyte 1 %; Monocyte 12 % (4.7-12.5); Myelocyte 3 %; Neutrophils 67 % (34.0-71.1); Nucleated Red Blood Cell 2 %; Total Cells Counted 100
[2024-11-24 22:28] LABS: Platelet Estimate DECREASED (NORMAL)
[2024-11-24 22:29] LABS: Hypochromia 1+
[2024-11-24 22:32] LABS: ANISOCYTOSIS 1+
== END 2024-11-24 22:27 | disposition short-term general hospital (02) ==
LOC: ED 04:10
DX: R00.0 Tachycardia, unspecified (principal); R42 Dizziness and giddiness; R94.5 Abnormal results of liver function studies; E78.5 Hyperlipidemia, unspecified; I10 Essential (primary) hypertension; E11.9 Type 2 diabetes mellitus without complications; Z79.01 Long term (current) use of anticoagulants; Z79.84 Long term (current) use of oral hypoglycemic drugs; Z79.899 Other long term (current) drug therapy
CPT/HCPCS: 36415; 70450; 71045; 76705; 80053; 80076; 80143; 80307; 81001; 82140; 82150; 82947; 83690; 83735; 83880; 84484; 85025; 85610; 87086; 93005; 93041; 96365; 96374; 96375; 99285; 99291; J2405; J2543; A9270-GY